=== PATIENT | male | born 1940 | race Caucasian/White ===

== ENCOUNTER → 2020-12-24 16:41 | Outpatient (CLI) | payer MEDICARE, OTHER, SELFPAY ==
[2020-12-10 08:45] VITALS: BMI 24.0
== END ==
PROVIDERS: PCP Family Medicine; Referring Provider Nurse Practitioner Acute Care; Visit Provider Nurse Practitioner Acute Care
DX: R06.00 Dyspnea, unspecified (principal)
CPT/HCPCS: 94762

== ENCOUNTER 2024-12-10 02:40 | Emergency (ER) | payer OTHER, SELFPAY ==
[2024-12-10 02:40] VITALS: BP 150/92; PULSE 78; RESP 16; TEMP 36.7; O2SAT 98; BMI 25.3
[2024-12-10] MEDS: Lidocaine 2% (20 ml mdv) 20 ML Vial INFILT (03:04)
--- NOTE | 2024-12-10 03:38 | EDS_ITS ---
HPI History of Present Illness Chief Complaint: Fall Informant: patient and spouse/S.O. Narrative Narrative: Patient is 84-year-old male with past medical she of hypertension hyperlipidemia. He states that he typically backs up to the bed and then sits down on it. He states a few hours ago he went to do this but he was not close enough to the bed and therefore fell and cut his right ear on the bedside table. He denies any loss of consciousness history of bleeding disorder or blood thinner use. He states he did not think much of this as he was able to get the bleeding to stop after a few minutes. However he states the bleeding returned and this time he cannot get the area to stop and with concern he may need sutures comes in for evaluation. [facility] Medical History (Updated 12/11/24 @ 16:[address] Marek Ponce, DO) HLD (hyperlipidemia) Malignant neoplasm of prostate HTN (hypertension) Diverticulosis of colon Home Medications ?Medication ?Instructions ?Recorded ?Last Taken ?Type aspirin 81 mg tablet,delayed 81 mg PO DAILY PRN pain 0 12/07/20 Unknown History release atorvastatin 40 mg tablet 40 mg PO DAILY 12/07/20 Unkn own History cholecalciferol (vitamin D3) 100 100 mcg PO DAILY 11/22 02/11 Unknown History mcg (4,000 unit) capsule losartan 100 mg tablet 100 mg PO DAILY 12/07/20 Unk nown History Allergy/AdvReac Type Severity Reaction Status Date / Time LINDA Inhibitors AdvReac Mental Verified 12/10/24 02:41 status change atenolol AdvReac Shortness Verified 12/10/24 02:41 of breath Surgical History H/O vitrectomy H/O sigmoidoscopy H/O cataract removal with insertion of prosthetic lens Hx of brachytherapy Social History Smoking Status: Never smoker alcohol intake: current alcohol intake frequency: 0-2 drinks per day ROS ROS ED Constitutional Constitutional ED: Denies chills or fever(s) Eyes Eyes: Denies blurry vision or change in vision ENT ENT ED: Denies sore throat Cardiovascular Cardiovascular: Reports other Details: Negative syncope ; Denies chest pain Respiratory/Chest Respiratory/Chest: Denies cough or dyspnea Gastrointestinal Gastrointestinal: Denies abdominal pain, diarrhea, nausea or vomiting Genitourinary Genitourinary ED: Denies dysuria Musculoskeletal Musculoskeletal: Denies back pain or neck pain Integumentary Reports other Details: Positive right ear laceration Neurologic Neurologic: Denies headache(s) Hematologic/Lymphatic Hematologic/Lymphatic: Denies easy bleeding or easy bruising EXAM Physical Exam Const Vital Signs: 12/10/24 02:40 12/10/24 02:40 Temperature 98.1 F Temperature Source Oral Pulse Rate 78 Respiratory Rate 16 Respiratory Effort Normal Non-Labored Blood Pressure 150/92 H Blood Pressure Mean 111 Pulse Ox 98 Oxygen Delivery Method Room Air Room Air Positive well nourished and well developed General Appearance ED: well developed HEENT HEENT Narrative: No signs of depressed or basilar skull fracture There is a linear subcutaneous layer deep 2 cm laceration along the upper portion of the right ear. There is persistent ooze of blood without retained foreign body or arterial injury. Eyes PERRL and EOMs intact bilaterally Neck supple Neck Narrative: No bony deformity or step-off of the cervical spine no midline tenderness to palpation Resp normal respiratory effort and clear to auscultation bilaterally Cardio regular rate and regular rhythm Back/Spine Back/Spine Narrative: No bony deformity or step-off of the thoracic or lumbar spine no midline tenderness to palpation Extremity normal to inspection Extremity Narrative: Pelvis is stable there is no shortening or external rotation of either lower extremity Patient is able to move all extremities without difficulty Neuro oriented x3, CN's II-XII intact bilaterally and no sensory deficits noted Sensorium / Orientation: alert Motor Exam: strength 5/5 throughout Psych mental status grossly normal Skin Skin Narrative: Laceration to the right ear as documented above MDM MDM MDM Narrative Medical decision making narrative: Patient arrived to the ER hypertensive but has a past medical history of this and otherwise vitals are stable. He reported a mechanical fall and therefore there is no need for cardiac or syncope workup. We discussed potential need for head and cervical spine CT but patient does not have a headache or neck pain and concern for a skull fracture versus subarachnoid or subdural hemorrhage is low and therefore he does not want this performed. Therefore the ear was sutured as documented below and patient is otherwise safe for discharge The right ear was cleaned with chlorhexidine. It was anesthetized using 5 mL of 2% lidocaine without epinephrine in local fashion. The wound was copiously irrigated with normal saline. Then five 4-0 Ethilon sutures were placed in simple interrupted fashion bring the wound together well with good approximation of the wound edges. Patient tolerated the procedure well without complication. History & Record Review Discussion w/independent historian: Patient and Significant other Discharge Plan Triage Chief Complaint: Fall ED Provider: Marek Ponce Dx/Rx/DC Orders Clinical Impression: Laceration of right ear, HTN (hypertension), HLD (hyperlipidemia), Accidental fall Instructions: ED Laceration, All Closures Prescriptions: No Action atorvastatin 40 mg tablet 40 mg PO DAILY losartan 100 mg tablet 100 mg PO DAILY cholecalciferol (vitamin D3) 100 mcg (4,000 unit) capsule 100 mcg PO DAILY aspirin 81 mg tablet,delayed release (DR/EC) 81 mg PO DAILY PRN (Reason: pain) Primary Care Provider: Rikki Harrison Referrals: Rikki Harrison MD [Primary Care Provider] - Activity Restrictions/Additional Instructions: Please see your family doctor or return to the ER in 7 to 10 days for suture removal Print Language: Citizen Of [place] Disposition Disposition: Home, Self Care Discharge Date/Time: 12/10/24 04:20
[2024-12-10 04:19] VITALS: BP 134/72; PULSE 68; RESP 16; TEMP 36.6; O2SAT 99
== END 2024-12-10 04:20 | disposition home or self-care (01) ==
PROVIDERS: Emergency Provider Emergency Medicine; PCP Family Medicine; Visit Provider Emergency Medicine
DX: S01.311A Laceration without foreign body of right ear, initial encounter (principal); W01.190A Fall on same level from slipping, tripping and stumbling with subsequent striking against furniture, initial encounter; I10 Essential (primary) hypertension; E78.5 Hyperlipidemia, unspecified; Z79.82 Long term (current) use of aspirin; Z79.899 Other long term (current) drug therapy
CPT/HCPCS: 12011; 99282

== ENCOUNTER → 2025-03-20 | Outpatient (CLI) | payer OTHER, MEDICARE, SELFPAY | END | disposition home or self-care (01) | PROVIDERS: PCP Family Medicine; Referring Provider Nurse Practitioner Acute Care; Visit Provider Nurse Practitioner Acute Care | DX: G47.33 Obstructive sleep apnea (adult) (pediatric) (principal) | CPT/HCPCS: 95811 ==

== ENCOUNTER 2025-08-20 12:13 | Inpatient (IN) | payer OTHER, SELFPAY ==
[2025-08-20] VITALS (12 sets, daily range): BP systolic 119–153; BP diastolic 60–81; PULSE 75–90; RESP 16–30; TEMP 36.6–38.1; O2SAT 93–99; BMI 26.9; BMI 24.9
--- NOTE | 2025-08-20 12:22 | RAD_ITS ---
PROCEDURE: CHEST PA AND LATERAL 08/20/2025 REASON FOR EXAM: WEAK, FALL TECHNIQUE: Procedure Code: RADCXR Modality: DX Procedure: CHEST PA AND LATERAL COMPARISON: None FINDINGS: Hardware: None Heart: The heart size is normal. Mediastinum: The mediastinal contour is unremarkable. Lungs: The lungs are clear. Bones: The bones are unremarkable. RAD/Chest PA and Lateral IMPRESSION: NO ACUTE FINDINGS. Reading Location: [facility]
--- NOTE | 2025-08-20 12:22 | EKG12_ITS ---
Test Reason : Blood Pressure : */* mmHG Vent. Rate : 85 BPM Atrial Rate : 85 BPM P-R Int : 214 ms QRS Dur : 90 ms QT Int : 364 ms P-R-T Axes : 68 16 53 degrees QTcB Int : 433 ms Sinus rhythm with 1st degree A-V block Cannot rule out Inferior infarct , age undetermined Abnormal ECG Nonspecific ST and T wave abnormality Confirmed by Cyrus Owens ([id number]), subeditor MONA NICHOLS ([id number]) on 08/22/2025 9:29:52 AM Referred By: DON Confirmed By: Cyrus Owens
[2025-08-20] MEDS: 0.9% Normal Saline (1000mL) 1,000 ML 999 ML IV ×2 (12:40→14:45)
[2025-08-20 12:43] LABS: Hematocrit 39.7 % (40-54); Hemoglobin 13.9 g/dL (13.0-16.5); Immature Granulocytes Count 0.020 X10^3/uL (0.0-0.0); Mean Corp Hgb Conc 35.0 g/dL (32-36); Mean Corpuscular Volume 94.5 fL (80-94); Mean Platelet Vol. 10.2 fl (6.2-12.0); NRBC Flagged by Analyzer 0 % (0-5); POSITIVE DIFFERENTIAL YES; Platelet Count 146 K/mm3 (150-450); RBC Distribution Width CV 13.4 % (11.6-14.6); RBC Distribution Width SD 46.6 fl (35.1-43.9); Red Blood Count 4.20 M/mm3 (4.6-6.2); White Blood Count 6.8 K/mm3 (4.4-11.0)
--- NOTE | 2025-08-20 12:47 | EDS_ITS ---
HPI History of Present Illness Chief Complaint: General Illness Narrative Narrative: Patient is a 84-year-old male past medical history of hypertension, hyperlipidemia,, malignant neoplasm of the prostate gland who presented to the emergency department the chief complaint of generalized weakness and fall. Patient states that he fell earlier today he did not hit his head he did not pass out he notes that he landed on his buttock and was too weak to get up therefore EMS was called to have him brought here to be further evaluated. Patient states that he had some black stools recently as well but denies any blood thinner medications. Patient is also complaining of some lower back pain. [facility] Medical History (Updated 08/20/25 @ 16:[address] Agusto Caldwell, ) HLD (hyperlipidemia) Malignant neoplasm of prostate HTN (hypertension) Diverticulosis of colon Home Medications ?Medication ?Instructions ?Recorded ?Last Taken ?Type atorvastatin 40 mg tablet 40 mg PO DAILY 12/07/20 Unkn own History losartan 100 mg tablet 100 mg PO DAILY 12/07/20 Unk nown History citalopram 20 mg tablet 10 mg PO DAILY ANXIETY 02/27 Unknown History metformin 500 mg tablet 500 mg PO DAILY diabetes 03/17 Unknown History CPAP - Continuous Positive Airway 05/19/25 Unknown Hi story Pressure([facility] INFORMATIONAL USE ONLY) Allergy/AdvReac Type Severity Reaction Status Date / Time LINDA Inhibitors AdvReac Mental Verified 08/20/25 12:20 status change atenolol AdvReac Shortness Verified 08/20/25 12:20 of breath Surgical History H/O vitrectomy H/O sigmoidoscopy H/O cataract removal with insertion of prosthetic lens Hx of brachytherapy Social History Smoking Status: Never smoker alcohol intake: current alcohol intake frequency: 0-2 drinks per day ROS ROS ED ROS Narrative Constitutional: Complains of whole-body aches and generalized not feeling well denies any headache, lightheadedness Cardiovascular: Denies chest pain Respiratory: Denies shortness of breath Abdomen: Denies abdominal pain nausea vomiting : Denies urinary symptoms Neurological: Denies any numbness, weakness, tingling Musculoskeletal: Denies back pain Skin: Denies any rashes or lesions EXAM Physical Exam Narrative Exam Narrative: General: Patient is lying in bed rest comfortably did not appear to be in acute distress Head: Atraumatic, normocephalic Eyes: PERRL bilaterally, EOMI bilaterally, no conjunctival injection noted Neck: Soft, supple, trachea midline Cardiovascular: Regular rate and rhythm Respiratory: Clear to auscultation bilaterally Abdomen: Soft, nondistended, mild tenderness to palpation diffusely no rebound or guarding on exam Extremities: +4/5 strength noted in the bilateral upper and lower extremities Neurological: Patient following commands knew that he was at [facility] the year is 2024 NIH of 0 GCS 15 Skin: Warm, dry, intact no rashes or lesions noted Const Vital Signs: 08/20/25 12:17 08/20/25 12:21 08/20/25 12:21 Temperature 100.6 F H 100.6 F H Temperature Source Oral Oral Pulse Rate 84 85 Respiratory Rate 22 H 30 H Respiratory Effort Normal Respiratory Pattern Normal Blood Pressure 153/69 H 153/69 H Blood Pressure Mean 97 97 Pulse Ox 95 97 Oxygen Delivery Method Room Air Room Air 08/20/25 12:25 08/20/25 13:21 08/20/25 13:21 Temperature 99.8 F H Temperature Source Oral Pulse Rate 90 86 Respiratory Rate 18 20 H Respiratory Effort Respiratory Pattern Blood Pressure 134/81 H 134/81 H Blood Pressure Mean 98 98 Pulse Ox 98 96 Oxygen Delivery Method Room Air Room Air Room Air 08/20/25 14:16 08/20/25 15:00 08/20/25 16:08 Temperature 98.6 F 97.9 F 98.2 F Temperature Source Oral Oral Oral Pulse Rate 86 82 86 Respiratory Rate 22 H 22 H 20 H Respiratory Effort Respiratory Pattern Blood Pressure 119/71 127/70 H 130/73 H Blood Pressure Mean 87 89 92 Pulse Ox 96 94 97 Oxygen Delivery Method Room Air Room Air Room Air MDM MDM MDM Narrative Medical decision making narrative: Patient is a 84-year-old male who presented to the emergency department the chief complaint of fall, generalized weakness and not feeling well. On the differential diagnose includes but not limited to electrolyte abnormality, upper respiratory infection secondary viral etiology, pneumonia. Once workup is obtained reviewed he will be reevaluated. Patient be given 30 cc/kg bolus of IV fluids which was ordered at 1225. He will also be given a gram of Tylenol for his fever Patient CBC reviewed and showed a white count is normal at 6.8, he was noted be 13.9, plate count of 146. Patient INR normal 1.1, PT 14.2. Patient sodium is 135, potassium normal at 4.4,, dioxide low at 17.5 anion gap normal at 14. Patient creatinine normal at 1.06 lactic acid elevated 3.3. Patient's AST and ALT were 56 and 47 respectively urinalysis reviewed and showed 5 ketones negative nitrites negative leukocyte esterase rare bacteria noted. Patient CT head brain without contrast showed no acute findings. Patient CT abdomen pelvis with IV contrast showed no acute intra-abdominal abnormalities. Patient EKG showed sinus rhythm with a rate of 85 bpm with evidence of first-degree AV block with a [place] interval 214. Patient was attempted to be ambulated here in the emergency department and was very unsteady on his feet. Patient did test positive for influenza A here in the emergency department. Occult blood was negative. No indication for antibiotics at this point time. At this point time will discuss case with hospitalist for admission given his influenza and generalized weakness with difficulty ambulating. Discussed case with hospitalist Dr. Clemente who accept patient for admission. Patient notified family members agreeable all question concerns answered. Patient will be given Tamiflu renal dosing 30 mg Lab Data Labs: Laboratory Results - last 24 hr 08/20/25 08/20/25 08/20/25 12:30 14:21 15:30 WBC 6.8 RBC 4.20 L Hgb 13.9 Hct 39.7 L MCV 94.5 H MCH 33.1 H MCHC 35.0 RDW Std Deviation 46.6 H RDW Coeff of [place] 13.4 Plt Count 146 L MPV 10.2 Immature Gran % (Auto) 0.300 Neut % (Auto) 77.3 H Lymph % (Auto) 8.2 L [place] % (Auto) 13.5 H Eos % (Auto) 0.1 Baso % (Auto) 0.6 Absolute Neuts (auto) 5.3 Absolute Lymphs (auto) 0.56 L Nucleated RBC % 0 PT 14.2 INR 1.1 APTT 27.8 Sodium 135 Potassium 4.4 Chloride 103 Carbon Dioxide 17.5 L Anion Gap 14 BUN 13 Creatinine 1.06 Estim Creat Clear Calc 28.90 L Est GFR (MDRD) Non-Af 70 BUN/Creatinine Ratio 12.3 Glucose 147 H Lactic Acid 3.3 H* 1.5 Calcium 8.8 Total Bilirubin 0.49 AST 56 H ALT 47 Alkaline Phosphatase 56 Total Protein 6.8 Albumin 4.1 Globulin 2.7 Albumin/Globulin Ratio 1.6 Urine Color Yellow Urine Clarity Clear Urine pH 6.0 Ur Specific [place] 1.010 Urine Protein 30 H Urine Glucose (UA) Normal Urine Ketones 5 H Urine Occult Blood 50 H Urine Nitrite Negative Urine Bilirubin Negative Urine Urobilinogen 1 H Ur Leukocyte Esterase Negative Urine RBC 0-5 SEEN Urine WBC 0-5 SEEN Ur Squamous Epith Cells 0-5 SEEN Urine Bacteria RARE Urine Mucus 0 SEEN Radiography Diagnostic Testing: Clinical Impression(s) from Imaging Studies Chest X-Ray 08/20/25 12:22 IMPRESSION: NO ACUTE FINDINGS. Reading Location: [facility] Abdomen/Pelvis CT 08/20/25 12:48 IMPRESSION: No acute intra-abdominal abnormality. Reading Location: [facility] Brain CT 08/20/25 12:48 IMPRESSION: CHRONIC CHANGES. NO ACUTE FINDINGS. Reading Location: [facility] Discharge Plan Dx/Rx/DC Orders Clinical Impression: HTN (hypertension), Influenza A, Generalized weakness, Acidosis, lactic Disposition Disposition: [facility]
--- NOTE | 2025-08-20 12:48 | CT_ITS ---
PROCEDURE: ABDOMEN/PELVIS W IV CONT ONLY 08/20/2025 REASON FOR EXAM: Increased weakness, generalized malaise and fever. TECHNIQUE: Procedure Code: [id number] Modality: CT Procedure: ABDOMEN/PELVIS W IV CONT ONLY Coronal and Sagittal reconstruction series were provided. CONTRAST: Isovue 370 VOLUME: 100 mL One or more dose reduction techniques were used (e.g., Automated exposure control, adjustment of the mA and/or kV according to patient size, use of iterative reconstruction technique. RADIATION DOSE SUMMARY: DLP: 926.78 mGycm COMPARISON: None FINDINGS: Lung bases: Mild dependent atelectasis Liver: Diffuse fatty infiltration. No focal intrahepatic mass. Gallbladder: Unremarkable. Spleen: Normal size. Pancreas: Normal size without evidence of mass surrounding inflammation or ductal dilation. Adrenals: Normal Kidneys: Normal renal sizes. No hydronephrosis. Bladder: Unremarkable. Reproductive Organs: Fiduciary markers are noted within the prostate bed. Bowel: Colonic diverticulosis without diverticulitis. No evidence of small- bowel obstruction. No hiatal hernia. The rectum is unremarkable. Appendix: The appendix is not identified. There is no inflammatory process identified in the right lower quadrant to suggest appendicitis. Lymph nodes: No suspicious lymph node enlargement. Vasculature: Mild diffuse atherosclerotic calcifications are noted. Peritoneum / Retroperitoneum: No free air or free fluid. Bones: Degenerative changes of the spine. No sclerotic lesion. CT/Abdomen/Pelvis W IV Cont ONLY IMPRESSION: No acute intra-abdominal abnormality. Reading Location: [facility]
--- NOTE | 2025-08-20 12:48 | CT_ITS ---
PROCEDURE: BRAIN/HEAD WITHOUT CONTRAST 08/20/2025 REASON FOR EXAM: FALL TECHNIQUE: Procedure Code: CTBR Modality: CT Procedure: BRAIN/HEAD WITHOUT CONTRAST Coronal and Sagittal reconstruction series were provided. One or more dose reduction techniques were used (e.g., Automated exposure control, adjustment of the mA and/or kV according to patient size, use of iterative reconstruction technique. RADIATION DOSE SUMMARY: CTDlvol: 61.87 mGy DLP: 1773.51 mGycm COMPARISON: None FINDINGS: Brain: Low density in the periventricular white matter suggests mild chronic small vessel ischemic changes. CSF Spaces: Mild generalized cerebral atrophy Sinuses/Mastoids: Mild mucosal thickening at the paranasal sinuses Bones: No acute osseous abnormality. CT/Brain/Head without Contrast IMPRESSION: CHRONIC CHANGES. NO ACUTE FINDINGS. Reading Location: [facility]
[2025-08-20 12:54] LABS: Prothrombin Time (Protime)PT. 14.2 SECONDS (11.7-14.9)
[2025-08-20 12:55] LABS: Partial Thromboplast Time 27.8 Seconds (24.1-36.2)
--- OUTSIDE RECORDS SUMMARY | 2025-08-20 12:57 | XMS RPT_ITS | CCD ---
Author Organization [facility] Care Team Providers Care Roll Scale Man Name Role Phone Reena Robles MD Primary Care Provider Dr. Reena Robles MD Primary Care Provider [phone] Dr. Marek Ponce DO Emergency Provider [phone] Reena Robles MD Primary Care Provider [place] [employer].CLINICAL RESEARCH SPECIALIST, Bonita Unavailable Phuc INS[employer].CLINICAL RESEARCH SPECIALIST, Pepito Unavailable [phone] Dr. Marek Ponce DO Attending Provider Dr. Reena Robles MD Referring Provider Hao SEMI TRUCK DRIVER-C, Gabriela Attending Provider Hao SEMI TRUCK DRIVER-C, Gabriela Referring Provider Reena Robles Referring Unavailable Gabriela Bui NP Attending Unavailable Reena Robles Primary Care Unavailable Hao SEMI TRUCK DRIVER, Gabriela Attending Unavailable Hao SEMI TRUCK DRIVER, Gabriela Referring Unavailable Reena Robles Primary Care Unavailable Marek Ponce Attending Unavailable Reena Robles Primary Care Unavailable REENA ROBLES Attending Unavailable REENA ROBLES Primary Care Unavailable REENA ROBLES Attending Unavailable REENA ROBLES Primary Care Unavailable REENA ROBLES Primary Care Unavailable PAULINE PEREZ Attending Unavailable Allergies Allergy Classification Reported Allergen(s) Allergy Type Date of Onset Reaction(s) Facility (2 sources) Angiotensin-con verting enzyme inhibitor agent; Translations: [KLEBER INHIBITORS] Drug Allergy 2 Mental Status Change [facility] (17 sources) Atenolol; Translations: [ATENOLOL] Drug Allergy 6 Other: See Comments [facility] (12 sources) Angiotensin-con verting enzyme inhibitor agent Drug Allergy 2 Mental Status Change [facility] (3 sources) Angiotensin Converting Enzyme (Kleber) Inhibitors Propensity to adverse reactions 5 Mental status change [facility] (1 source) Angiotensin Converting Enzyme (Kleber) Inhibitors Drug allergy (disorder) 5 [facility] (1 source) Atenolol Drug Allergy 5 [facility] Medications Current Medications Medication Drug Class(es) Dates Sig (Normalized) Sig (Original) atorvastatin 40 mg oral tablet (16 sources) HMG-CoA Reductase Inhibitor Start: 04-26-2020 take 1 tablet by mouth once daily Atorvastatin 40 mg tablet Active 40 mg PO DAILY December 07, 2020 12:00am Comment on above: Take 1 tablet by héctor once daily. citalopram 20 mg oral tablet (14 sources) Serotonin Reuptake Inhibitor Start: 02-27-2025 take 10 mg by mouth once daily Citalopram 20 mg tablet Active 10 mg PO DAILY February 27, 2025 12:00am ANXIETY Start: 05-01-2021 End: 01-17-2022 take 1 tablet by mouth once daily citalopram (CELEXA) 20 mg tablet Take 1 tablet by mouth once daily. 0 05/01/2021 01/17/2022 Discontinued citalopram hydro bromide (CELEXA) 10 mg tablet Take by mouth once daily. Active Comment on above: Take 1 tablet by héctor once daily. Take by mouth once d aily. doxycycline hyclate 100 mg oral capsule (1 source) Tetracycline-class Drug Start: 3 End: 3 take 1 capsule by mouth twice daily doxycycline hyclate (VIBRAMYCIN) 100 mg capsule Indications: Cellulitis of skin Take 1 capsule by mouth twice daily for 10 days. 20 capsule 0 03/09/2023 03/19/2023 Active Comment on above: Take 1 capsule by mo [facility] twice daily for 10 days. losartan potassium 50 mg oral tablet (16 sources) Angiotensin 2 Receptor Tiffani Start: 1 take 2 tablets by mouth once daily losartan (COZAAR) 50 mg tablet Indications: Essential hypertension, benign Take 2 tablets by mouth once daily. 07/19/2021 Active Start: 12-07-2020 take 1 tablet by mouth once da maddi Losartan 100 mg tablet Active 100 mg PO DAILY December 07, 2020 12:00am Comment on above: Take 2 tablets by mo [facility] once daily. meloxicam 15 mg oral tablet (13 sources) Nonsteroidal Anti-inflammatory Drug Start: 1 take 1 tablet by mouth once daily at mealtime meloxicam (MOBIC) 15 mg tablet Take 1 tablet by mouth once daily. With food. 07/19/2021 Active Comment on above: Take 1 tablet by héctor once daily. With food. metFORMIN hydrochloride 500 mg oral tablet (20 sources) Biguanide Start: 5 take 1 tablet by mouth once daily Metformin 500 mg tablet Active 500 mg PO DAILY February 27, 2025 12:00am diabetes Start: 07-28-2022 End: 12-29-2024 take 1 tablet by mouth once daily at breakfast metFORMIN ER (GLUCOPHAGE XR) 500 mg 24 hr tablet Indications: Prediabetes Take 1 tablet by mouth daily with breakfast. 90 tablet 1 07/28/2022 Active Comment on above: Take 1 tablet by héctor daily with breakfast. triamcinolone acetonide 0.25 mg/ml topical cream (9 sources) Corticosteroid Start: 03-09-2023 triamcinolone (KENALOG) 0.025 % cream Indications: Insect bite, unspecified site, initial encounter Apply 1 application to affected area twice daily. 30 g 03/09/2023 Active Comment on above: Apply 1 application to affected area twice daily. Completed/Discontinued Medications Medication Drug Class(es) Dates Sig (Normalized) Sig (Original) amoxicillin 875 mg / clavulanate 125 mg oral tablet (3 sources) Penicillin-class Antibacterial Start: 11-30-2023 End: 12-10-2023 Amoxicillin-Pot Clavulanate 875-125 mg tablet Discontinued 1 {tbl} PO Q12H 20 10 0 November 30, 2023 12:00am December 09, 2023 12:00am December 10, 2023 12:06am Acute sinusitis, unspecified aspirin 81 mg delayed release oral tablet (16 sources) Platelet Aggregation Inhibitor, Nonsteroidal Anti-inflammatory Drug Start: 12-07-2020 End: 02-27-2025 take 1 tablet by mouth once daily as needed for pain Aspirin 81 mg tablet,delayed release (DR/EC) Discontinued 81 mg PO DAILY as needed for pain December 07, 2020 12:00am February 27, 2025 8:14am Start: 07-16-2012 take 1 tablet by héctor th once daily at mealtime Aspirin 81 mg Tab Take 1 tablet by mouth once daily. Take with food. 30 tablet 11 07/16/2012 Active Comment on above: Take 1 tablet by héctor th once daily. Take with food. Cholecalciferol (3 sources) Vitamin D Start: 12-07-2020 End: 02-27-2025 take 1 capsule by mouth once daily Cholecalciferol (Vitamin D3) 100 mcg (4,000 unit) capsule Discontinued 100 ug PO DAILY December 07, 2020 12:00am February 27, 2025 8:14am Start: 12-07-2020 take 1 capsule by mo [facility] once daily Cholecalciferol (Vitamin D3) 100 mcg (4,000 unit) capsule Active 100 ug PO DAILY December 07, 2020 12:00am cholecalciferol, vitamin D3, (VITAMIN D3 ORAL) (12 sources) End: 12-29-2024 cholecalciferol, vitamin D3, (VITAMIN D3 ORAL) Take by mouth. 12/29/2024 Discontinued cholecalciferol, vitamin D3, (VITAMIN D3 ORAL) Take by mouth. Active cholecalciferol, vitamin D3, (VITAMIN D3 ORAL) Take by mouth. 0 Active Comment on above: Take by mouth. furosemide 20 mg oral tablet (16 sources) Loop Diuretic Start: 2011 End: 2024 take 1 tablet by mouth once daily as needed Furosemide (Lasix) 20 mg tablet Discontinued 20 mg PO DAILY as needed December 07, 2020 12:00am December 10, 2024 2:41am Comment on above: Take 1 tablet by héctor th once daily as needed. loratadine 10 mg oral tablet (10 sources) End: 2024 take 1 tablet by mouth once daily loratadine (CLARITIN) 10 mg tablet Take 10 mg by mouth once daily. 12/29/2024 Discontinued Comment on above: Take 10 mg by mouth once daily. methylPREDNISolone 4 mg oral tablet (3 sources) Corticosteroid Start: 2023 End: 2023 take 1 tablet by mouth once Methylprednisolone (Medrol (Kirby)) 4 mg tablets,dose pack Discontinued 4 mg PO per package directions 21 6 0 November 30, 2023 12:00am December 05, 2023 12:00am December 06, 2023 12:06am Problems Active Problems Problem Classification Problem Date Documented Date Episodic/Chronic Anxiety disorders (3 sources) Mixed anxiety and depressive disorder; Translations: [Other specified anxiety disorders] Onset: 01-17-2025 12-29-2024 Chronic Cancer of prostate (17 sources) Malignant tumor of prostate; Translations: [Malignant neoplasm of prostate] Resolved: 01-17-2025 Chronic Cardiac dysrhythmias (13 sources) Ventricular premature beats; Translations: [Ventricular premature depolarization] Onset: 04-27-2015 04-27-2015 Chronic Diabetes mellitus without complication (5 sources) Type 2 diabetes mellitus; Translations: [Type 2 diabetes mellitus without complications] Onset: 12-29-2024 12-29-2024 Chronic Diabetes mellitus without complication (2 sources) Increased glucose level; Translations: [Other abnormal glucose] Episodic Disorders of lipid metabolism (20 sources) Mixed hyperlipidemia; Translations: [Mixed hyperlipidemia] Onset: 08-06-2005 Chronic Diverticulosis and diverticulitis (16 sources) Diverticulosis of colon; Translations: [Diverticulosis of large intestine without perforation or abscess without bleeding] Onset: 10-31-2005 09-11-2008 Chronic E Codes: Natural/environment (1 source) Insect bite - wound; Translations: [Bitten or stung by nonvenomous insect and other nonvenomous arthropods, initial encounter] 03-09-2023 Episodic Essential hypertension (20 sources) Benign essential hypertension; Translations: [Essential (primary) hypertension] Onset: 07-23-2011 Chronic Other nervous system disorders (13 sources) Carpal tunnel syndrome; Translations: [Carpal tunnel syndrome, unspecified upper limb] Onset: 12-24-2009 12-24-2009 Chronic Other non-traumatic joint disorders (1 source) Hip pain; Translations: [Pain in left hip] Episodic Other screening for suspected conditions (not mental disorders or infectious disease) (4 sources) Patient encounter status; Translations: [Encounter for screening for malignant neoplasm of colon] Episodic Otitis media and related conditions (3 sources) Acute right otitis media; Translations: [Otitis media, unspecified, right ear] 11-30-2023 Episodic Residual codes; unclassified (19 sources) Obstructive sleep apnea syndrome; Translations: [Obstructive sleep apnea (adult) (pediatric)] Onset: 04-26-2020 Chronic Residual codes; unclassified (1 source) Obstructive sleep apnea (adult) (pediatric); Translations: [Obstructive sleep apnea (adult) (pediatric)] Onset: 04-04-2025 Chronic Residual codes; unclassified (1 source) Bilateral lower limb edema; Translations: [Localized edema] Episodic Residual codes; unclassified (3 sources) Past history of procedure; Translations: [Other specified postprocedural states] 12-07-2020 Episodic Residual codes; unclassified (3 sources) History of vitrectomy; Translations: [Other specified postprocedural states] 12-07-2020 Episodic Skin and subcutaneous tissue infections (1 source) Cellulitis of skin; Translations: [Cellulitis, unspecified] 03-09-2023 Episodic Spondylosis; intervertebral disc disorders; other back problems (20 sources) Degeneration of lumbar intervertebral disc; Translations: [Other intervertebral disc degeneration, lumbar region] Onset: 07-23-2011 07-23-2011 Chronic Past or Other Problems Problem Classification Problem Date Documented Da te Episodic/Chronic Allergic reactions (6 sources) Disorders of skin induced by physical agents; Translations: [Unspecified contact dermatitis due to plants, except food] Onset: 03-25-2007 Resolved: 06-10-2007 03-03-2024 Episodic E Codes: Fall (4 sources) Fall; Translations: [Unspecified fall, initial encounter] Onset: 12-29-2024 12-29-2024 Episodic Hemorrhoids (6 sources) Internal hemorrhoids; Translations: [Other hemorrhoids] Onset: 10-31-2005 Resolved: 07-23-2011 07-23-2011 Episodic Neoplasms of unspecified nature or uncertain behavior (6 sources) Neoplasm of uncertain behavior of skin; Translations: [Neoplasm of uncertain behavior of skin] Onset: 03-08-2009 Resolved: 12-24-2009 12-24-2009 Episodic Open wounds of head; neck; and trunk (5 sources) Laceration of ear region; Translations: [Laceration without foreign body of right ear, initial encounter] Onset: 12-29-2024 12-10-2024 Episodic Other aftercare (1 source) Encounter for removal of sutures; Translations: [Visit for suture removal] Onset: 12-18-2024 Episodic Other and unspecified benign neoplasm (6 sources) Benign neoplasm of colon; Translations: [Benign neoplasm of colon, unspecified] Onset: 10-31-2005 Resolved: 07-23-2011 07-23-2011 Episodic Other connective tissue disease (13 sources) Contracture of palmar fascia; Translations: [Palmar fascial fibromatosis [Dupuytren]] Onset: 03-09-2007 09-11-2008 Episodic Other connective tissue disease (6 sources) Pain in limb; Translations: [Pain in unspecified limb] Onset: 12-23-2005 Resolved: 06-10-2007 03-03-2024 Episodic Other injuries and conditions due to external causes (1 source) Encounter for examination and observation following other accident; Translations: [Encounter for examination and observation following other accident] Onset: 12-15-2024 Episodic Other non-traumatic joint disorders (13 sources) Pain in right knee; Translations: [Pain in joint, lower leg] Onset: 02-03-2011 02-03-2011 Episodic Screening and history of mental health and substance abuse codes (2 sources) Encounter for screening for depression; Translations: [Encounter for screening examination for other mental health and behavioral disorders] Onset: 12-29-2024 Episodic Spondylosis; intervertebral disc disorders; other back problems (20 sources) Lumbago with sciatica; Translations: [Lumbago with sciatica, right side] Onset: 08-09-2015 08-09-2015 Episodic Results Test Name Value Interpretation Reference Range Facil mart Han 06-05-2025 [facility] Telephone ([facility]) LUIS FERNANDO HOWARD ([id number]) 1940 M Date Time Provider Department 06/05/25 REENA ROBLES [facility] During your visit today, we recorded the following information about you: Katie Bowman MA 06/05/2025 6:32 PM Signed Type of letter/form/fax request - Medical Record Release Form Form received from fax on 1 floor and placed on MD desk (Dr. Robles) for completion. Completed form needs to be faxed to [facility] Affairs. Pt applied [facility] and they are requesting records. Route to CT when form completed for processing Reena Robles MD 06/05/2025 7:48 PM Signed OK to send records as requested MD Dionisio Park Kathryn, MA 06/05/2025 7:54 PM Signed Routed to Medical Records Release. Katie Bowman MA Allergies As of Date: 06/05/2025 Noted Allergy Reaction KLEBER INHIBITORS 12/10/2011 1 - Mental Status Change ATENOLOL 09/14/2015 14 - Other: See Comments Comments: Difficulty breathing with activity Date Reviewed: 01/17/2025 Reviewed by: Katie Bowman MA - Fully Assessed Reason for Visit: record release form from [facility] [Other] Prescriptions as of 06/05/2025 - triamcinolone (KENALOG) 0.025 % cream Apply 1 application to affected area twice daily. - citalopram hydrobromide (CELEXA) 10 mg tablet Take by mouth once daily. - metFORMIN ER (GLUCOPHAGE XR) 500 mg 24 hr tablet Take 1 tablet by mouth daily with breakfast. - losartan (COZAAR) 50 mg tablet Take 2 tablets by mouth once daily. - meloxicam (MOBIC) 15 mg tablet Take 1 tablet by mouth once daily. With food. - atorvastatin (LIPITOR) 40 mg tablet Take 1 tablet by mouth once daily. - Aspirin 81 mg Tab Take 1 tablet by mouth once daily. Take with food. Meds Comments as of 07/19/2021: Receives all meds through [facility]. 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] 03/09/2007 DERMATITIS DUE TO PLANT [L25.5] 03/25/2007 06/10/2007 Neoplasm of Uncertain Behavior of Skin [D48.5] 03/08/2009 12/24/2009 CTS (Carpal Tunnel Syndrome) [G56.00] 12/24/2009 Knee pain, right [M25.561] 02/03/2011 Essential hypertension, benign [I10] 07/23/2011 DDD (degenerative disc disease), lumbar [M51.36*07/23/2011 PVC's (premature ventricular contractions) [I49*04/27/2015 Midline low back pain with right-sided sciatica*08/09/2015 Osteoarthritis of spine with radiculopathy, lum*09/03/2015 Right-sided low back pain with right-sided scia*09/03/2015 DALE (obstructive sleep apnea) [G47.33] 04/26/2020 Type 2 diabetes mellitus without complication, *12/29/2024 Encounter Status:Closed by KATIE BOWMAN on 06/05/25 Normal [facility] Pulmonary Visit Reporton Pulmonary Visit Report [facility] of [address] [place] [address] OFFICE VISIT Date of Service: 02/27/25 MR#: [id number] Acct: [id number] Name: LUIS FERNANDO HOWARD Rep #: [id number] : 1940 Provider: HIEU Bui Age/Sex: 84/M Location: [facility] [place] Status: Signed Assessment and Plan Assessment and Plan (1) DALE (obstructive sleep apnea): Status: Chronic Plan: Deteriorated. The patient was previously prescribed PAP therapy through the [facility] with a fullface mask. The patient states he was not able to tolerate the full facemask and ultimately returned the device. Since then, he has found out that his daughter has obstructive sleep apnea and has been noticing significant benefit from treatment. This made him reconsider his decision. He would like to evaluate treatment with a hybrid nasal interface. He is agreeable to a titration study. Once test results are available for review I will order the appropriate equipment. The patient will return to the office in approximately 10 weeks, at which time anticipate he will be on therapy for approximately 4 to 6 weeks. I have advised him that he should wear the device at least 4 hours nightly, ultimately any time spent sleeping. He conveys understanding and is agreeable with this plan. He has been encouraged to contact our office with any difficulty acclimating to therapy. Orders: Orders Polysomnography with PAP Today G47.33 - Obstructive sleep apnea (adult) (pediatric) Plan Details Additional Comments: This note was generated with iWelcome dictation software. It may contain incorrect words, spelling, and punctuation that were not noted in checking the note before signing. Follow Up: 10 Weeks HPI DALE- On license of [facility] Chief Complaint: Obstructive sleep apnea HPI Comments Details: This patient presents to the office today to reestablish care for his known obstructive sleep apnea. He is ambulatory and currently on room air. He has not recently been seen in the ED or urgent care for any respiratory illness. He has not required any antibiotics or prednisone for any breathing problems. If you recall, he is a lifelong never smoker. [facility]. He was previously diagnosed with obstructive sleep apnea by the [facility] and prescribed PAP therapy with a fullface mask. Unfortunately, after serious effort was given the patient was not able to be compliant with the fullface mask and returned the device. At this time, he is feeling tired throughout the day. He has 2 episodes of nocturia nightly. He believes that he would feel more rested if he treated his sleep apnea. He would like to be prescribed ResMed AirSense 11 AutoSet with AirFit and 30 cushion. He remains a very active person exercising in his home gym multiple times weekly. He denies any difficulty with shortness of breath, he is a runner. He denies any wheezing, chest tightness, chest pain or palpitations. He does not have any cough, sputum production or hemoptysis. He denies any fever, chills or body aches. Intake Vital Signs 12/10/24 02:40 02/27/25 08:12 Height 5 ft 10 in 5 ft 10 in Weight: 171 lb BMI 24.5 BP 157/84 H Blood Pressure Location Rt brachial Position Sitting Respiration 16 Pulse 71 Pulse Source Monitor Temp 97.4 F L Temperature Source Temporal Artery Pulse Oximetry (%) 96 Oxygen Delivery Method room air Intake Visit Reasons: [facility]- [facility] Chief Complaint: Cough, congestion and right ear pain Allergies KLEBER Inhibitors Adverse Reaction (Verified 02/27/25 08:14) Mental status change atenolol Adverse Reaction (Verified 02/27/25 08:14) Shortness of breath Medications ???Medication ???Instructions ???Recorded ???Confirmed ???Type atorvastatin 40 mg tablet 40 mg PO DAILY 12/07/20 02/27/25 H istory losartan 100 mg tablet 100 mg PO DAILY 12/07/20 02/27/25 History citalopram 20 mg tablet 10 mg PO DAILY ANXIETY 02/27/25 History metformin 500 mg tablet 500 mg PO DAILY diabetes 02/27/25 02/27/25 History Have you fallen in the past year?: No PFSH Medical History HLD (hyperlipidemia) Malignant neoplasm of prostate HTN (hypertension) Diverticulosis of colon Surgical History H/O vitrectomy H/O sigmoidoscopy H/O cataract removal with insertion of prosthetic lens Hx of brachytherapy Social History Smoking Status: Never smoker alcohol intake: current alcohol intake frequency: 0-2 drinks per day Questionnaire Bolivar Sleepiness Scale Bolivar Sleepiness Scale Sitting and readin = Mod (more content not included)... Normal [facility] 01-17-2025 [facility] Office Visit ([facility]) LUIS FERNANDO HOWARD ([id number]) 1940 M Date Time Provider Department 01/17/25 10:40 AM REENA ROBLES [facility] During your visit today, we recorded the following information about you: Pulse Respiration Blood pressure Weight 68/minute 14/minute 110/68 78.2 kg Reena Robles MD 01/17/2025 3:02 PM Signed Chief Complaint Patient presents with: Diabetes: HPI Luis Fernando Howard is a 84 year old male who presents here today for diabetes concerns. Has an advanced directive. [facility] He follows with [facility]. DM: Taking Metformin ER 500 mg 1 pill daily. [facility]. No neuropathy sx. No hypoglycemic episodes. Checking BS at home with FBS 140. His last A1c he said was 7.4 which was done at [facility]. No falls. Last fall 12/29/24. Depression/DAVID: stable with Celexa 10 mg daily. Has family support and grand children close, some in [place]. Range in ages of 25 to 13 years old. Past medical history, appointments, medications, allergies reviewed. 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 Other and unspecified hyperlipidemia Previous Surgical History PAST SURGICAL HISTORY Procedure Laterality Date COLONOSCOPY FLX DX W/COLLJ SPEC WHEN PFRMD 09/27/2009 COLSC FLX W/RMVL OF TUMOR POLYP LESION SNARE TQ 10/31/05 PAST SURGICAL HISTORY OF 09/25 brachytherapy, prostate [facility] SIGMOIDOSCOPY FLX DX W/COLLJ SPEC BR/WA IF PFRMD Sigmoidoscopy, flexible VITRECTOMY MECHANICAL PARS PLANA left eye- aroung 2016 XCAPSL CTRC RMVL INSJ IO LENS PROSTH W/O ECP 05/2013 done at [facility] left eye Family History FAMILY HISTORY Problem Relation Age of Onset None Other Glaucoma No Family History Macular Degen No Family History Blindness No Family History Detached Retina No Family History Patient Allergies ALLERGIES Allergen Reactions Kleber Inhibitors Mental Status Change Atenolol Other: See Comments Difficulty breathing with activity Current Medications Current Outpatient Medications on File Prior to Visit Medication Sig triamcinolone (KENALOG) 0.025 % cream Apply 1 application to affected area twice daily. citalopram hydrobromide (CELEXA) 10 mg tablet Take by mouth once daily. metFORMIN ER (GLUCOPHAGE XR) 500 mg 24 hr tablet Take 1 tablet by mouth daily with breakfast. losartan (COZAAR) 50 mg tablet Take 2 tablets by mouth once daily. meloxicam (MOBIC) 15 mg tablet Take 1 tablet by mouth once daily. With food. atorvastatin (LIPITOR) 40 mg tablet Take 1 tablet by mouth once daily. Aspirin 81 mg Tab Take 1 tablet by mouth once daily. Take with food. furosemide 20 mg tablet Take 1 tablet by mouth once daily as needed. No current facility-administere d medications on file prior to visit. Social History Social History Tobacco Use Smoking status: Never Smokeless tobacco: Never Vaping Use Vaping status: Never Used Substance Use Topics Alcohol use: Yes Comment: wine daily Drug use: No EXAM: BP 110/68 Pulse 68 Resp 14 Wt 78.2 kg (172 lb 6.4 oz) BMI 24.74 kg/m? General Appearance: Well appearing, alert, in no acute distress, well-hydrated, well nourished.. Lungs: Lungs clear to auscultation. No wheezing, rhonchi, rales.. Heart: RRR without murmur, gallop, or rubs. No ectopy. Feet: Shoes and socks removed, No deformities, ulcers, calluses, normal distal pulses, and sensitive to 10 gm monofilament . Health Maintenance List Diabetic Foot Exam Never done Shingrix Vaccine(1 of 2) Never done RSV Vaccine(1 - 1-dose 75+ series) Never done DTaP,Tdap,Td Vaccine(5 - Td or Tdap) due on 11/02/2023 Advance Directive Discussion due on 08/24/2024 Covid-19 Vaccine( season) due on 12/29/2025 HbA1C due on 04/06/2025 Urine Albumin:Creatinine Ratio due on 10/07/2025 LDL Cholesterol due on 10/07/2025 Depression Screening due on 12/29/2025 Anxiety Screening due on 12/29/2025 Dilated Retinal Exam due on 01/10/2026 Influenza Vaccine Completed Pneumococcal Vaccine: 50+ Completed Colorectal Cancer Screening Discontinued Data reviewed None ASSESSMENT/PLAN: 1. Type 2 diabetes mellitus without complication, without long-term current use of insulin (HCC) - ICD9: 250.00, ICD10: E11.9 - Controlled - Continue current medications - Counseled on healthy diet and regular exercise - Discussed need for and benefit of weight loss. BMI 24.74 kg/(m2) 2. Anxiety with depression - ICD9: 300.4, ICD10: F41.8 Stable Continue current medications. Follow up prn I agree with the Chief Complaint, ROS, and Past Histories independently gathered by the clinical support s (more content not included)... Normal [facility] CNOVon 12-29-2024 CNOV Office Visit (FAMPWS) LUIS FERNANDO HOWARD ([id number]) 1940 M Date Time Provider Department 12/29/24 10:00 AM [facility] During your visit today, we recorded the following information about you: Pulse Respiration Blood pressure Weight 62/minute 16/minute 140/80 80 kg Reena Robles MD 12/29/2024 10:19 AM Signed Chief Complaint Patient presents with: ED Follow-up: [facility]-fall, sutures to the right ear, those are out HPI Luis Fernando Howard is a 84 year old male who presents here today for ER Follow Up.. 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 Pt has not been seen in the office since 07/2022. Pt stated he did hit his right ear, had stitches placed which were removed at . Denies LOC. The ear is healing, tender to touch. Has not had any further falls. Admits he does have balance issues when walking. He stated his fall was due to barrel line operator error, did not back up enough to the bed before sitting. Denies any other cause for the fall. Tetanus was not updated at ER. Had depth perception issue of the right eye. [facility] records from 12/10/24: Narrative: Patient is 84-year-old male with past medical she of hypertension hyperlipidemia. He states that he typically backs up to the bed and then sits down on it. He states a few hours ago he went to do this but he was not close enough to the bed and therefore fell and cut his right ear on the bedside table. He denies any loss of consciousness history of bleeding disorder or blood thinner use. He states he did not think much of this as he was able to get the bleeding to stop after a few minutes. However he states the bleeding returned and this time he cannot get the area to stop and with concern he may need sutures comes in for evaluation. Medical decision making narrative: Patient arrived to the ER hypertensive but has a past medical history of this and otherwise vitals are stable. He reported a mechanical fall and therefore there is no need for cardiac or syncope workup. We discussed potential need for head and cervical spine CT but patient does not have a headache or neck pain and concern for a skull fracture versus subarachnoid or subdural hemorrhage is low and therefore he does not want this performed. Therefore the ear was sutured as documented below and patient is otherwise safe for discharge The right ear was cleaned with chlorhexidine. It was anesthetized using 5 mL of 2% lidocaine without epinephrine in local fashion. The wound was copiously irrigated with normal saline. Then five 4-0 Ethilon sutures were placed in simple interrupted fashion bring the wound together well with good approximation of the wound edges. Patient tolerated the procedure well without complication Follows with [facility] every 6 months. All his prescriptions are prescribed by providers at [facility]. No bowel, Gi, or urinary issues. DM: taking Metformin xr 500 mg once daily. He had A1c done at [facility] in Sep with result 6.8. He does not check BS much at home. No hypoglycemic issues. No neuropathy in feet. He does not eat bread anymore. Eats salads daily. HTN: Does check BP at home with readings running 140/65. No chest pains, dizziness, or SOB. 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 Lipid: Taking Lipitor 40 mg daily, tolerating well. 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 Tries to watch diet. He does not eat bread anymore. Eats salads daily. Depression/DAVID: Taking Celexa 10 mg daily. No counseling at this time. Was going every 6 months through [facility] but was advised he didn't need to return unless he wanted to. Past medical history, appointments, medications, allergies reviewed. 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 Other and unspecified hyperlipidemia Previous Surgical History PAST SURGICAL HISTORY Procedure Laterality Date COLONOSCOPY FLX DX W/COLLJ SPEC WHEN PFRMD 09/27/2009 COLSC FLX W/RMVL OF TUMOR POLYP LESION SNARE TQ 10/31/05 PAST SURGICAL HISTORY OF 09/25 brachytherapy, prostate [facility] SIGMOIDOSCOPY FLX DX W/COLLJ SPEC BR/WA IF PFRMD Sigmoidoscopy, flexible VITRECTOMY MECHANICAL PARS PLANA left eye- aroung 2017 XCAPSL CTRC RMVL INSJ IO LENS PROSTH W/O ECP [facility] Family History FAMILY HISTORY Problem Relation Age of Onset None Other Glaucoma No Family History Macular Degen No Family History Blindness No Family History Detached Retina No Family History Patient Allergies ALLERGIES Allergen Reactions Kleber Inhibitors Mental Status Change Atenolol Other: See Comments Difficulty breathing with activity Curre (more content not included)... Normal [facility] Lower GI hemoglobin IA Ql (S tl)on 12-19-2024 FECAL OCCULT BLOOD Negative [facility] CNOVon 12-18-2024 CNOV Office Visit (WSTR) LUIS FERNANDO HOWARD ([id number]) 1940 M Date Time Provider Department 12/18/24 1:30 PM PAULINE PEREZ [facility] During your visit today, we recorded the following information about you: Temperature Pulse Respiration Blood pressure 97.5 degrees 64/minute 16/minute 133/73 Weight 79.4 kg Pauline Perez APRN.CLINICAL RESEARCH SPECIALIST 12/18/2024 1:50 PM Signed [facility] Subjective Luis Fernando Howard is a 84 year old male. Patient presents with: Suture Removal: 4 suture top of RIGHT ear at [facility] 12/10/24 Patient came in with complaints of needing 4 sutures taken out of his ear. Patient had 4 sutures placed 8 days ago at the ER in [place]. Patient denies any complications with healing. The history is provided by the patient. No metalsmith was used. Suture Removal Review of Systems Constitutional: Negative. HENT: Negative. Objective BP 133/73 Pulse 64 Temp 36.4 ?C (97.5 ?F) (Right Tympanic) Resp 16 Wt 79.4 kg (175 lb 0.7 oz) SpO2 98% BMI 25.12 kg/m? Physical Exam Constitutional: Appearance: Normal appearance. HENT: Ears: Comments: 4 sutures removed in the area marked above. They were sewn tightly so calvillo were left in the ear. No bleeding at this time no signs of infection instructed to keep clean dry. Pulmonary: Effort: Pulmonary effort is normal. Neurological: Mental Status: He is alert. 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 citalopram hydrobromide (CELEXA) 10 mg tablet Take by mouth once daily. loratadine (CLARITIN) 10 mg tablet Take 10 mg by mouth once daily. losartan (COZAAR) 50 mg tablet Take 2 tablets by mouth once daily. meloxicam (MOBIC) 15 mg tablet Take 1 tablet by mouth once daily. With food. atorvastatin (LIPITOR) 40 mg tablet Take 1 tablet by mouth once daily. cholecalciferol, vitamin D3, (VITAMIN D3 ORAL) Take by mouth. metFORMIN ER (GLUCOPHAGE XR) 500 mg 24 hr tablet Take 1 tablet by mouth daily with breakfast. metFORMIN ER (GLUCOPHAGE XR) 500 mg 24 hr tablet Take 1 tablet by mouth daily with breakfast. Aspirin 81 mg Tab Take 1 tablet by mouth once daily. Take with food. (Patient taking differently: Take 81 mg by mouth as needed. Take with food.) furosemide 20 mg tablet Take 1 tablet by mouth once daily as needed. FAMILY HISTORY Problem Relation Age of Onset None Other Glaucoma No Family History Macular Degen No Family History Blindness No Family History Detached Retina No Family History Social History Tobacco Use Smoking status: Never Smokeless tobacco: Never Vaping Use Vaping status: Never Used Substance Use Topics Alcohol use: Yes Comment: wine daily Drug use: No {ASSESSMENT/PLAN: 1. Visit for suture removal - ICD9: V58.32, ICD10: Z48.02 Patient tolerated procedure well all 4 sutures removed completely. Pauline Perez APRN.[facility] Procedures Allergies As of Date: 12/18/2024 Noted Allergy Reaction KLEBER INHIBITORS 12/10/2011 1 - Mental Status Change ATENOLOL 09/14/2015 14 - Other: See Comments Comments: Difficulty breathing with activity Date Reviewed: 12/18/2024 Reviewed by: Camelia Monroy MA - Fully Assessed Reason for Visit: Suture Removal [105] Cmt: 4 suture top of RIGHT ear at [facility] 12/10/24 Primary Visit Diagnosis:Visit for suture removal [Z48.02] Prescriptions as of 12/18/2024 - triamcinolone (KENALOG) 0.025 % cream Apply 1 application to affected area twice daily. - citalopram hydrobromide (CELEXA) 10 mg tablet Take by mouth once daily. - loratadine (CLARITIN) 10 mg tablet Take 10 mg by mouth once daily. - metFORMIN ER (GLUCOPHAGE XR) 500 mg 24 hr tablet Take 1 tablet by mouth daily with breakfast. - metFORMIN ER (GLUCOPHAGE XR) 500 mg 24 hr tablet Take 1 tablet by mouth daily with breakfast. - losartan (COZAAR) 50 mg tablet Take 2 tablets by mouth once daily. - meloxicam (MOBIC) 15 mg tablet Take 1 tablet by mouth once daily. With food. - atorvastatin (LIPITOR) 40 mg tablet Take 1 tablet by mouth once daily. - cholecalciferol, vitamin D3, (VITAMIN D3 ORAL) (more content not included)... Normal [facility] Emergency Department Summary on 12-10-2024 Emergency Department Summary [facility] Medical Records Department [address] [place] [address] Emergency Department Summary 12/10/24 MR#: [id number] Acct: [id number] Name: LUIS FERNANDO HOWARD Rep #: [id number] : 1940 84 From: Marek Ponce DO PCP: Dr. Reena Robles MD Status:DEP ER Location: ED HPI History of Present Illness Chief Complaint: Fall Informant: patient and spouse/S.O. Narrative Narrative: Patient is 84-year-old male with past medical she of hypertension hyperlipidemia. He states that he typically backs up to the bed and then sits down on it. He states a few hours ago he went to do this but he was not close enough to the bed and therefore fell and cut his right ear on the bedside table. He denies any loss of consciousness history of bleeding disorder or blood thinner use. He states he did not think much of this as he was able to get the bleeding to stop after a few minutes. However he states the bleeding returned and this time he cannot get the area to stop and with concern he may need sutures comes in for evaluation. [facility] Medical History (Updated 12/11/24 @ 16:[address] Marek Ponce DO) HLD (hyperlipidemia) Malignant neoplasm of prostate HTN (hypertension) Diverticulosis of colon Home Medications ???Medication ???Instructions ???Recorded ???Last Taken ???Type aspirin 81 mg tablet,delayed 81 mg PO DAILY PRN pain 12/07/20 U nknown History release atorvastatin 40 mg tablet 40 mg PO DAILY 12/07/20 Unknown Hi story cholecalciferol (vitamin D3) 100 100 mcg PO DAILY 12/07/20 Unknown History mcg (4,000 unit) capsule losartan 100 mg tablet 100 mg PO DAILY 12/07/20 Unknown H istory Allergy/AdvReac Type Severity Reaction Status Date / Time KLEBER Inhibitors AdvReac Mental Verified 12/10/24 02:41 status change atenolol AdvReac Shortness Verified 12/10/24 02:41 of breath Surgical History H/O vitrectomy H/O sigmoidoscopy H/O cataract removal with insertion of prosthetic lens Hx of brachytherapy Social History Smoking Status: Never smoker alcohol intake: current alcohol intake frequency: 0-2 drinks per day ROS ROS ED Constitutional Constitutional ED: Denies chills or fever(s) Eyes Eyes: Denies blurry vision or change in vision ENT ENT ED: Denies sore throat Cardiovascular Cardiovascular: Reports other Details: Negative syncope ; Denies chest pain Respiratory/Chest Respiratory/Chest: Denies cough or dyspnea Gastrointestinal Gastrointestinal: Denies abdominal pain, diarrhea, nausea or vomiting Genitourinary Genitourinary ED: Denies dysuria Musculoskeletal Musculoskeletal: Denies back pain or neck pain Integumentary Reports other Details: Positive right ear laceration Neurologic Neurologic: Denies headache(s) Hematologic/Lymphati c Hematologic/Lymphati c: Denies easy bleeding or easy bruising EXAM Physical Exam Const Vital Signs: 12/10/24 02:40 12/10/24 02:40 Temperature 98.1 F Temperature Source Oral Pulse Rate 78 Respiratory Rate 16 Respiratory Effort Normal Non-Labored Blood Pressure 150/92 H Blood Pressure Mean 111 Pulse Ox 98 Oxygen Delivery Method Room Air Room Air Positive well nourished and well developed General Appearance ED: well developed HEENT HEENT Narrative: No signs of depressed or basilar skull fracture There is a linear subcutaneous layer deep 2 cm laceration along the upper portion of the right ear. There is persistent ooze of blood without retained foreign body or arterial injury. Eyes PERRL and EOMs intact bilaterally Neck supple Neck Narrative: No bony deformity or step-off of the cervical spine no midline tenderness to palpation Resp normal respiratory effort and clear to auscultation bilaterally Cardio regular rate and regular rhythm Back/Spine Back/Spine Narrative: No bony deformity or step-off of the thoracic or lumbar spine no midline tenderness to palpation Extremity normal to inspection Extremity Narrative: Pelvis is stable there is no shortening or external rotation of either lower extremity Patient is able to move all extremities without difficulty Neuro oriented x3, CN's II-XII intact bilaterally and no sensory deficits noted Sensorium / Orientation: alert Motor Exam: strength 5/5 throughout Psych mental status grossly normal Skin Skin Narrative: Laceration to the right ear as documented above MDM MDM MDM Narrative Medical decision making narrative: Patient arrived to the ER hypertensive but has a past medical history of this and otherwise vitals are stable. He reported a mechanical fall and therefore there is no need for cardiac or syncope workup. We discuss (more content not included)... Normal [facility] CBCDIF (EXTERNAL)on 10-07-19 BASO ABS 0.1 K/uL 0 - 0.2 K/uL [facility] Basophils/100 WBC (Bld) 0.9 % 0 - 1.5 % [facility] EOS ABS 0.2 K/uL 0.1 - 0.3 K/uL [facility] Eosinophils/100 WBC (Bld) 4 % Abnormal 1 - 3 % [facility] Hematocrit (Bld) [Volume fraction] 45.5 % 39 - 55 % [facility] Hemoglobin (Bld) [Mass/Vol] 15.6 g/dL 14 - 16.5 g/dL [facility] Lymphocytes (Bld) [#/Vol] 2 10*3/uL 1.2 - 4 K/uL [facility] Lymphocytes/100 WBC (Bld) 34.7 % Abnormal 20 - 30 % [facility] MCH (RBC) [Entitic mass] 34 pg 25.4 - 34.6 pg [facility] MCHC (RBC) [Mass/Vol] 34.3 g/dL 30 - 36 g/dL [facility] MCV (RBC) [Entitic vol] 99.2 fL Abnormal 79 - 98 fL [facility] MONO ABS 0.6 K/uL 0 - 1 K/uL [facility] Monocytes/100 WBC (Bld) 11.3 % Abnormal 2 - 8 % [facility] NEUT ABS 2.8 K/uL 1.9 - 8 K/uL [facility] Neutrophils/100 WBC (Bld) 49.1 % 40 - 74 % [facility] Platelet mean volume (Bld) [Entitic vol] 9.3 fL 7.4 - 10.4 fL [facility] Platelets (Bld) [#/Vol] 211 10*3/uL 140 - 440 K/uL [facility] RBC (Bld) [#/Vol] 4.59 10*6/uL [facility] RDW 13.4 K/uL Abnormal 140 - 440 K/uL [facility] WBC (Bld) [#/Vol] 5.6 10*3/uL 3.9 - 11 K/uL [facility] CMP (EXTERNAL)on 10-07-2024 Albumin [Mass/Vol] 4.2 g/dL [facility] Alk Phos Total 63 U/L 45 - 117 U/L [facility] ALT [Catalytic activity/Vol] 54 U/L 12 - 78 U/L [facility] AST [Catalytic activity/Vol] 33 U/L 8 - 37 U/L [facility] Bili Total 0.9 mg/dL 0.2 - 1 mg/dL [facility] Calcium [Mass/Vol] 9.4 mg/dL 8.5 - 10. 1 mg/dL [facility] Chloride [Moles/Vol] 104 mmol/L [facility] CO2 [Moles/Vol] 25 mmol/L [facility] Creatinine [Mass/Vol] 1 mg/dL [facility] GFR 75 mL/MIN [facility] GFR AFR AMER [facility] Glucose [Mass/Vol] 148 mg/dL Abnormal [facility] Potassium [Moles/Vol] 4.2 mmol/L 3.5 - 5.1 mmol/L [facility] Protein [Mass/Vol] 6.9 g/dL [facility] Sodium [Moles/Vol] 136 mmol/L 136 - 145 mmol/L [facility] Urea nitrogen [Mass/Vol] 15 mg/dL [facility] HBA1C (OUTSIDE)on 10-07-2024 HbA1c (Bld) [Mass fraction] 6.8 % [facility] LIPID PANEL (EXTERNAL)on Cholesterol [Mass/Vol] 144 mg/dL [facility] Cholesterol in HDL [Mass/Vol] 39 mg/dL [facility] Cholesterol in LDL [Mass/Vol] 85 mg/dL [facility] Non-HDL Cholesterol [facility] TC:HDL Ratio [facility] Triglyceride [Mass/Vol] 146 mg/dL [facility] No Panel Informationon 10-07 Interpretation and review of laboratory results Abnormal [facility] TSH (EXTERNAL)on 10-07-2024 TSH Qn 1.574 m[IU]/L [facility] CNPNon 07-28-2024 CNPN Telephone ([facility] LUIS FERNANDO HOWARD ([id number]) 1940 M Date Time Provider Department 07/28/24 BONITA GAR During your visit today, we recorded the following information about you: Bonita Gar APRN.PRIYA 07/28/2024 9:55 AM Signed Can you please call the patient and let him know that [facility]. He is past due for a Medicare wellness/follow-up with PCP. I would recommend follow-up in the office in the next 3 to 6 months. At that time if labs are needed they can be ordered. Boniat Gar APRN.Charlee Moses LPN 07/28/2024 10:32 AM Signed TC to ptEve LM to call office, ask for triage nurse to get results. VIBHA Garcia Sherrie, RN 07/28/2024 10:41 AM Signed Patient returned call and given provider's message below and patient verbalized understanding. Beverly Buckley RN Allergies As of Date: 07/28/2024 Noted Allergy Reaction KLEBER INHIBITORS 12/10/2011 1 - Mental Status Change ATENOLOL 09/14/2015 14 - Other: See Comments Comments: Difficulty breathing with activity Date Reviewed: 03/09/2023 Reviewed by: Sandra Swenson MA - Fully Assessed Reason for Visit: Results [95] Prescriptions as of 07/28/2024 - triamcinolone (KENALOG) 0.025 % cream Apply 1 application to affected area twice daily. - citalopram hydrobromide (CELEXA) 10 mg tablet Take by mouth once daily. - loratadine (CLARITIN) 10 mg tablet Take 10 mg by mouth once daily. - metFORMIN ER (GLUCOPHAGE XR) 500 mg 24 hr tablet Take 1 tablet by mouth daily with breakfast. - metFORMIN ER (GLUCOPHAGE XR) 500 mg 24 hr tablet Take 1 tablet by mouth daily with breakfast. - losartan (COZAAR) 50 mg tablet Take 2 tablets by mouth once daily. - meloxicam (MOBIC) 15 mg tablet Take 1 tablet by mouth once daily. With food. - atorvastatin (LIPITOR) 40 mg tablet Take 1 tablet by mouth once daily. - cholecalciferol, vitamin D3, (VITAMIN D3 ORAL) Take by mouth. - Aspirin 81 mg Tab Take 1 tablet by mouth once daily. Take with food. - furosemide 20 mg tablet Take 1 tablet by mouth once daily as needed. Meds Comments as of 07/19/2021: [facility] 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] 12/24/2009 Knee pain, right [M25.561] 02/03/2011 Essential hypertension, benign [I10] 07/23/2011 DDD (degenerative disc disease), lumbar [M51.36*07/23/2011 PVC's (premature ventricular contractions) [I49*04/27/2015 Midline low back pain with right-sided sciatica*08/09/2015 Osteoarthritis of spine with radiculopathy, lum*09/03/2015 Right-sided low back pain with right-sided scia*09/03/2015 DALE (obstructive sleep apnea) [G47.33] 04/26/2020 Encounter Status:Closed by TINA BUCKLEY on 07/28/24 Normal [facility] CBC W/DIFF/PLT (EXTERNAL LAB GT)on 04-05-2024 BASO ABSOLUTE 0.1 [facility] Basophils/100 WBC (Bld) 1.0 % 0.0 - 3.0 % [facility] EOS ABSOLUTE 0.2 [facility] Eosinophils/100 WBC (Bld) 4.6 % Abnormal 0.0 - 3.0 % [facility] Erythrocyte distribution width (RBC) [Ratio] 13.8 % 12.3 - 15.4 % [facility] Hematocrit (Bld) [Volume fraction] 45.6 % 37.5 - 51.0 % [facility] Hemoglobin (Bld) [Mass/Vol] 15.4 g/dL 12.6 - 17.7 g/dL [facility] Lymphocytes/100 WBC (Bld) 36.1 % 21.0 - 51.0 % [facility] LYMPHS ABSOLUTE 1.9 [facility] MCH 33.5 Pg Abnormal 26.6 - 33 Pg [facility] MCHC (RBC) [Mass/Vol] 33.7 g/dL 31.5 - 35.7 g/dL [facility] MCV (RBC) [Entitic vol] 99.4 fL Abnormal 79 - 97 fL [facility] MONOCYTES ABSOLUTE 0.6 [facility] Monocytes/100 WBC (Bld) 10.6 % Abnormal 4.0 - 8.0 % [facility] NEUTROPHILS ABSOLUTE 2.5 [facility] Neutrophils/100 WBC (Bld) 47.7 % Abnormal 54.0 - 78.0 % [facility] NRBC 0.1 /100 WBC [facility] Platelet mean volume (Bld) [Entitic vol] 9.0 fL 7.4 - 10.4 fL [facility] Platelets (Bld) [#/Vol] 198 10*3/uL [facility] RBC (Bld) [#/Vol] 4.58 10*6/uL [facility] WBC (Bld) [#/Vol] 5.3 10*3/uL 3.4 - 10.8 K/uL [facility] CMP (EXTERNAL)on 04-05-2024 Albumin [Mass/Vol] 4.4 g/dL [facility] Alk Phos Total 64 U/L 45 - 117 U/L [facility] ALT [Catalytic activity/Vol] 40 U/L 12 - 78 U/L [facility] Anion gap [Moles/Vol] 11.6 mmol/L 10 - 20 [facility] AST [Catalytic activity/Vol] 30 U/L 8 - 37 U/L [facility] Bili Total 1.0 mg/dL 0.2 - 1 mg/dL [facility] Calcium [Mass/Vol] 9.3 mg/dL 8.5 - 10. 1 mg/dL [facility] Chloride [Moles/Vol] 104 mmol/L [facility] CO2 [Moles/Vol] 24 mmol/L [facility] Creatinine [Mass/Vol] 1.0 mg/dL [facility] GFR 75.0 mL/MIN [facility] Glucose [Mass/Vol] 134 mg/dL Abnormal [facility] Potassium [Moles/Vol] 4.6 mmol/L 3.5 - 5.1 mmol/L [facility] Protein [Mass/Vol] 7.0 g/dL [facility] Sodium [Moles/Vol] 135 mmol/L Abnormal 136 - 145 mmol/L [facility] Urea nitrogen [Mass/Vol] 13 mg/dL [facility] FREE T4on 04-05-2024 Free T4 [Mass/Vol] 0.87 ng/dL 0.83 - 1. 60 ng/dL [facility] Comment on above: [facility] HbA1c (Bld)on 04-05-2024 HbA1c (Bld) [Mass fraction] 6.3 % Abnormal 4.8 - 5.9 % [facility] Comment on above: [facility] LIPID PANEL (EXTERNAL)on Cholesterol [Mass/Vol] 132 mg/dL [facility] HDC-L 43 mg/dL 39 mg/dL [facility] LDL Chol, calculated 82 [facility] Triglyceride [Mass/Vol] 131 mg/dL - 149 mg/dL [facility] No Panel Informationon 04-05 Interpretation and review of laboratory results Abnormal [facility] TSH (EXTERNAL)on 04-05-2024 TSH Qn 1.559 m[IU]/L [facility] Comment on above: [facility] VITAMIN D 25 HYDROXY (AK,AV, EU,FV,HL,ZULEIMA,MM,SP)on 04-05-2024 Vitamin D 25 Hydroxy 32.30 ng/mL 30 - 75 ng/mL [facility] Comment on above: [facility] Vital Signs Date Time Vital Sign Value Performing Clinician Facility 02-27-2025 08:12-0400 Body height 177.[address] Reena Robles MD Work Phone: [facility] 02-27-2025 08:12-0400 Body mass index (BMI) [Ratio] 24.5 kg/m2 Dr. Reena Robles MD Work Phone: [facility] 02-27-2025 08:12-0400 Body temperature 97.4 [degF] Dr. Reena Robles MD Work Phone: 4(253)759-527785 [place] [address] 02-27-2025 08:12-0400 Body weight 77.[address] Reena Robles MD Work Phone: 1(161)773-074785 [place] [address] 02-27-2025 08:12-0400 Diastolic blood pressure 84 mm[Hg] Dr. Reena Robles MD Work Phone: 2(394)[phone] [place] [address] 02-27-2025 08:12-0400 Heart rate 71 /min Dr. Reena Robles MD Work Phone: 8(324)944-521385 [place] [address] 02-27-2025 08:12-0400 Respiratory rate 16 /min Dr. Reena Robles MD Work Phone: 3(364)345-073485 [place] [address] 02-27-2025 08:12-0400 SaO2% (BldA) [Mass fraction] 96 % Dr. Reena Robles MD Work Phone: [facility] 02-27-2025 08:12-0400 Systolic blood pressure 157 mm[Hg] Dr. Reena Robles MD Work Phone: [facility] 01-17-2025 10:29-0400 Body mass index (BMI) [Ratio] 24.74 kg/m2 Reena Robles MD Work Phone: [facility] 01-17-2025 10:29-0400 Body weight 78.2 kg Reena Robles MD Work Phone: [facility] 01-17-2025 10:29-0400 Diastolic blood pressure 68 mm[Hg] Reena Robles MD Work Phone: [facility] 01-17-2025 10:29-0400 Heart rate 68 /min Reena Robles MD Work Phone: [facility] 01-17-2025 10:29-0400 Respiratory rate 14 /min Reena Robles MD Work Phone: [facility] 01-17-2025 10:29-0400 Systolic blood pressure 110 mm[Hg] Reena Robles MD Work Phone: [facility] 12-29-2024 09:52-0400 Body mass index (BMI) [Ratio] 25.31 kg/m2 Reena Robles MD Work Phone: [facility] 12-29-2024 09:52-0400 Body weight 80 kg Reena Robles MD Work Phone: [facility] 12-29-2024 09:52-0400 Diastolic blood pressure 80 mm[Hg] Reena Robles MD Work Phone: [facility] 12-29-2024 09:52-0400 Heart rate 62 /min Reena Robles MD Work Phone: [facility] 12-29-2024 09:52-0400 Respiratory rate 16 /min Reena Robles MD Work Phone: [facility] 12-29-2024 09:52-0400 Systolic blood pressure 140 mm[Hg] Reena Robles MD Work Phone: [facility] 12-10-2024 04:19-0400 Body temperature 97.8 [degF] Dr. Reena Robles MD Work Phone: [facility] 12-10-2024 04:19-0400 Diastolic blood pressure 72 mm[Hg] Dr. Reena Robles MD Work Phone: [facility] 12-10-2024 04:19-0400 Heart rate 68 /min Dr. Reena Robles MD Work Phone: [facility] 12-10-2024 04:19-0400 Respiratory rate 16 /min Dr. Reena Robles MD Work Phone: [facility] 12-10-2024 04:19-0400 SaO2% (BldA) [Mass fraction] 99 % Dr. Reena Robles MD Work Phone: [facility] 12-10-2024 04:19-0400 Systolic blood pressure 134 mm[Hg] Dr. Reena Robles MD Work Phone: [facility] 12-10-2024 02:40-0400 Body height 177.[address] Reena Robles MD Work Phone: [facility] 12-10-2024 02:40-0400 Body mass index (BMI) [Ratio] 25.3 kg/m2 Dr. Reena Robles MD Work Phone: [facility] 12-10-2024 02:40-0400 Body weight 80.[address] Reena Robles MD Work Phone: [facility] 03-09-2023 13:39-0400 Body temperature 100.71 [degF] Valorie Praisler-Wood [employer].CLINICAL RESEARCH SPECIALIST Work Phone: [facility] 03-09-2023 13:39-0400 Body weight 76.75 kg Valorie Praisler-Wood INS[employer].CLINICAL RESEARCH SPECIALIST Work Phone: [facility] 03-09-2023 13:39-0400 Diastolic blood pressure 80 mm[Hg] Valorie Praisler-Wood INSPECT[employer].CLINICAL RESEARCH SPECIALIST Work Phone: [facility] 03-09-2023 13:39-0400 Heart rate 75 /min Valorie Praisler-Wood INSPECT[employer].CLINICAL RESEARCH SPECIALIST Work Phone: [facility] 03-09-2023 13:39-0400 Respiratory rate 21 /min Valorie Praisler-Wood INS[employer].CLINICAL RESEARCH SPECIALIST Work Phone: [facility] 03-09-2023 13:39-0400 SaO2% (BldA) [Mass fraction] 97 % Valorie Praisler-Wood INSPECT[employer].CLINICAL RESEARCH SPECIALIST Work Phone: [facility] 03-09-2023 13:39-0400 Systolic blood pressure 130 mm[Hg] Valorie Praisler-Wood INS[employer].CLINICAL RESEARCH SPECIALIST Work Phone: [facility] 07-28-2022 08:50-0500 Body weight 78.93 kg Bonita Kunzhof INS[employer].CLINICAL RESEARCH SPECIALIST Work Phone: [facility] 07-28-2022 08:50-0500 Diastolic blood pressure 96 mm[Hg] Bonita Kunzhof INS[employer].CLINICAL RESEARCH SPECIALIST Work Phone: [facility] 07-28-2022 08:50-0500 Heart rate 70 /min Bonita Kunzhof INSPECT[employer].CLINICAL RESEARCH SPECIALIST Work Phone: [facility] 07-28-2022 08:50-0500 Respiratory rate 16 /min Bonita Kunzhof INS[employer].CLINICAL RESEARCH SPECIALIST Work Phone: [facility] 07-28-2022 08:50-0500 SaO2% (BldA) [Mass fraction] 96 % Bonita Kunzhof [employer].CLINICAL RESEARCH SPECIALIST Work Phone: [facility] 07-28-2022 08:50-0500 Systolic blood pressure 154 mm[Hg] Bonita Kunzhof [employer].CLINICAL RESEARCH SPECIALIST Work Phone: [facility] 01-17-2022 10:07-0400 Body weight 76.66 kg Reena Robles MD Work Phone: [facility] 01-17-2022 10:07-0400 Diastolic blood pressure 66 mm[Hg] Reena Robles MD Work Phone: [facility] 01-17-2022 10:07-0400 Heart rate 68 /min Reena Robles MD Work Phone: [facility] 01-17-2022 10:07-0400 Respiratory rate 16 /min Reena Robles MD Work Phone: [facility] 01-17-2022 10:07-0400 Systolic blood pressure 140 mm[Hg] Reena Robles MD Work Phone: [facility] Encounters Encounter Date Encounter Type Care Provider Facility Start: 03-20-2025 End: 03-20-[address] Reena Robles MD Work Phone: -[facility] Start: 03-20-2025 End: 03-20-2025 Patient encounter procedure Gabriela Bui [employer] -[facility] Work Phone: Start: 03-20-2025 End: 03-20-2025 ambulatory Gabriela Bui NP Facility:[facility] Start: 02-27-2025 End: 02-27-2025 Patient encounter procedure Gabriela Bui [employer]-C -[facility] Work Phone: Start: 02-27-2025 End: 02-27-[address] Reena Robles MD Work Phone: -[facility] Start: 01-17-2025 End: 01-17-2025 Office outpatient visit 25 minutes Reena Robles MD Work Phone: [facility] Comment on above: Type 2 diabetes erica itus without complication, without long- term current use of insulin (HCC) (Primary Dx); Anxiety with depression; Mixed hyperlipidemia Start: 01-17-2025 End: 01-17-2025 ambulatory REENA ROBLES Facility:[facility] Start: 12-29-2024 End: 12-29-2024 Office outpatient visit 25 minutes Reena Robles MD Work Phone: [facility] Comment on above: Fall, initial encoun ter (Primary Dx); Screening for depression; Encounter for screening examination for other mental health and behavioral disorders; Laceration of right ear region; Mixed hyperlipidemia; Essential hypertension, benign; Type 2 diabetes mellitus without complication, without long-term current use of insulin (HCC); Anxiety with depression Start: 12-29-2024 End: 12-29-2024 ambulatory REENA ROBLES Facility:[facility] Start: 12-18-2024 End: 12-18-2024 ambulatory [facility] Facility:[facility] Start: 12-10-2024 End: 12-10-2024 Emergency department patient visit Dr. Reena Robles MD Work Phone: -Emergency Department Work Phone: Start: 07-28-2024 End: 07-28-2024 Telephone encounter Bonita Gar APRN.CNP Work Phone: [facility] Comment on above: Results Start: 07-15-2024 End: 07-15-2024 ambulatory Reena Robles MD Work Phone: [facility] Comment on above: Handicap Parking Papa card Start: 07-07-2024 End: 07-11-2024 ambulatory Reena Robles MD Work Phone: [facility] Comment on above: HANDICAL PLACARD Start: 07-05-2024 End: 07-06-2024 ambulatory Bonita Gar [employer].CLINICAL RESEARCH SPECIALIST Work Phone: [facility] Start: 07-05-2024 End: 07-06-2024 Patient encounter procedure Bonita Gar [employer].CLINICAL RESEARCH SPECIALIST Work Phone: [facility] Comment on above: LAB TESTS FOR NEXT A PPOINTMENT Start: 04-10-2023 Telephone encounter Miranda Ken pastor [facility] Work Phone: Psychology Comment on above: bh consult Start: 03-26-2023 ambulatory Reena khanna MD Work Phone: [facility] Comment on above: LAST ALT TEST AT [facility] Start: 03-09-2023 End: 03-09-2023 Patient encounter procedure Valorie Chi [employer].CLINICAL RESEARCH SPECIALIST Work Phone: [facility] Comment on above: Cellulitis of skin ( Primary Dx); Insect bite, unspecified site, initial encounter Start: 10-24-2022 Telephone encounter Bonita chacon [employer].CLINICAL RESEARCH SPECIALIST Work Phone: [facility] Comment on above: Results (Labs ) Start: 07-28-2022 End: 07-28-2022 Patient encounter procedure Bonita Gar [employer].CLINICAL RESEARCH SPECIALIST Work Phone: [facility] Comment on above: Essential hypertensi on, benign (Primary Dx); Mixed hyperlipidemia; Prediabetes; DALE (obstructive sleep apnea); Osteoarthritis of spine with radiculopathy, lumbar region; Bilateral leg edema; DDD (degenerative disc disease), lumbar; Left hip pain Start: 04-29-2022 Telephone encounter Reena sarah MD Work Phone: [facility] Comment on above: Orders Start: 01-17-2022 End: 01-17-2022 Patient encounter procedure Reena Robles MD Work Phone: [facility] Comment on above: Essential hypertensi on, benign (Primary Dx); Mixed hyperlipidemia; DALE (obstructive sleep apnea); Malignant neoplasm of prostate (HCC); Screening for colon cancer; Elevated glucose Procedures Date Procedure Procedure Detail Performing Clinician Start: 12-29-2024 Adult depression screening assessment Reena Robles MD Work Phone: Start: 12-19-2024 IMMUNOCHEMICAL FECAL OCCULT BLOOD TEST [facility] Provider Start: 10-07-2024 CBCDIF (EXTERNAL) [facility] Start: 10-07-2024 Comprehensive metabo lic 2000 panel - Serum or Plasma [facility] Start: 10-07-2024 Hemoglobin A1c/Hemoglobin.total in Blood [facility] Provider Start: 10-07-2024 Lipid panel [facility] Provid er Start: 10-07-2024 PSA screening [facility] Provi sabrina Start: 10-07-2024 Thyrotropin [Units/volume] in Serum or Plasma [facility] Start: 04-05-2024 CBC W/DIFF/PLT (EXTE RNAL LAB GT) Cande Penix CLINICAL RESEARCH SPECIALIST Work Phone: Start: 04-05-2024 Comprehensive metabo lic 2000 panel - Serum or Plasma Cande Penix CLINICAL RESEARCH SPECIALIST Work Phone: Start: 04-05-2024 Hemoglobin A1c/Hemoglobin.total in Blood Cande Penix CLINICAL RESEARCH SPECIALIST Work Phone: Start: 04-05-2024 Lipid panel Cande Peni x CLINICAL RESEARCH SPECIALIST Work Phone: Start: 04-05-2024 PSA screening Cande Pen ix CLINICAL RESEARCH SPECIALIST Work Phone: Comment on above: [facility] Start: 04-05-2024 Thyrotropin [Units/volume] in Serum or Plasma Cande Penix CLINICAL RESEARCH SPECIALIST Work Phone: Start: 04-05-2024 Thyroxine (T4) free [Mass/volume] in Serum or Plasma Cande Penix CLINICAL RESEARCH SPECIALIST Work Phone: Start: 04-05-2024 VITAMIN D 25 HYDROXY (EU,FV,HL,ZULEIMA,MM,SP) Cande Poon CLINICAL RESEARCH SPECIALIST Work Phone: Start: 01-17-2022 Adult depression screening assessment Reena Robles MD Work Phone: History of cataract extraction H/O cataract removal with insertion of prosthetic lens Dr. Reena Robles MD Work Phone: History of radiation therapy Hx of brachytherapy Dr. Reena Robles MD Work Phone: Plan of Treatment Date Care Activity Detail Author Start: 04-05-2027 Diabetes Screening Diabetes Screenin g [facility] Start: 03-12-2026 DIABETES SCREEN DIABETES SCREEN [facility] Start: 02-02-2026 DIABETES SCREEN DIABETES SCREEN [facility] Start: 01-17-2026 Diabetic foot examination Diabetic Foot Exam [facility] Start: 01-10-2026 Glaucoma screening Dilated Retinal E xam [facility] Start: 12-29-2025 Anxiety Screening Anxiety Screening [facility] Start: 12-29-2025 Covid-19 Vaccine ( season) Covid-19 Vaccine () [facility] Comment on above: Postponed from 04/24 (Declined at this time) Start: 12-29-2025 Depression Screening Depression Scre ening [facility] Start: 10-23-2025 DIABETES SCREEN DIABETES SCREEN [facility] Start: 10-07-2025 Hepatitis B screening Urine Al bumin:Creatinine Ratio [facility] Start: 10-07-2025 Hepatitis B surface antibody level LDL Cholesterol [facility] Start: 07-24-2025 DIABETES SCREEN DIABETES SCREEN [facility] Start: 04-06-2025 Hemoglobin A1c measurement HbA1C [facility] Start: 01-08-2025 DIABETES SCREEN DIABETES SCREEN [facility] Start: 12-10-2024 Simple repair f/e/e/n/l/m 2.5cm/< RPR F/E/E/N/L/M 2.5 CM/< [facility] Start: 12-10-2024 [facility] Start: 08-24-2024 Advance Directive Discussion Advance Directive Discussion [facility] Start: 04-24-2024 Covid-19 Vaccine (4 - 2024-25 season) Covid-19 Vaccine ( season) [facility] Start: 04-24-2024 Influenza vaccination Influenza Vacc ine (#1) [facility] Start: 11-02-2023 Urine microalbumin profile [facility] Start: 08-24-2023 Advance Directive Discussion Advance Directive Discussion [facility] Start: 07-28-2023 ANNUAL PCP TEAM HARD HAT DIVER RADHA DISEASE VISIT ANNUAL PCP TEAM CHRONIC DISEASE VISIT [facility] Start: 04-24-2023 Influenza vaccination INFLUENZA (#1) [facility] Start: 01-26-2023 End: 03-28-2023 Lipid 1996 panel - Serum or Plasma LIPID PANEL BASIC Lab Routine Mixed hyperlipidemia Expected: 01/26/2023, Expires: 03/28/2023 [facility] Work Phone: Comment on above: Expected: 01/26/2023 , Expires: 03/28/2023 Start: 01-17-2023 Adult depression screening assessment DEPRESSION SCREENING [facility] Start: 01-17-2023 ANNUAL PCP TEAM HARD HAT DIVER RADHA DISEASE VISIT ANNUAL PCP TEAM CHRONIC DISEASE VISIT [facility] Start: 10-26-2022 End: 12-26-2022 Comprehensive metabolic 2000 panel - Serum or Plasma COMP METABOLIC PANEL Lab Routine Prediabetes Expected: 10/26/2022, Expires: 12/26/2022 [facility] Work Phone: Comment on above: Expected: 10/26/2022 , Expires: 12/26/2022 Start: 10-26-2022 End: 12-26-2022 Hemoglobin A1c in Blood HGB A1C Lab Routine Prediabetes Expected: 10/26/2022, Expires: 12/26/2022 [facility] Work Phone: Comment on above: Expected: 10/26/2022 , Expires: 12/26/2022 Start: 08-24-2022 ADVANCE DIRECTIVE DISCUSSION ADVANCE DIRECTIVE DISCUSSION [facility] Start: 08-24-2022 DEPRESSION ASSESSMENT DEPRESSION ASS ESSMENT [facility] Start: 07-20-2022 End: 09-19-2022 Comprehensive metabolic 2000 panel - Serum or Plasma COMP METABOLIC PANEL Lab Routine Essential hypertension, benign Mixed hyperlipidemia Elevated glucose Expected: 07/20/2022 (Approximate), Expires: 09/19/2022 [facility] Work Phone: Comment on above: Expected: 07/20/2022 (Approximate), Expires: 09/19/2022 Start: 07-20-2022 End: 09-19-2022 Hemoglobin A1c/Hemoglobin.total in Blood HGB A1C Lab Routine Elevated glucose Expected: 07/20/2022 (Approximate), Expires: 09/19/2022 [facility] Work Phone: Comment on above: Expected: 07/20/2022 (Approximate), Expires: 09/19/2022 Start: 07-20-2022 End: 09-19-2022 Hemoglobin.gastrointest inal.lower [Presence] in Stool by Immunoassay FECAL OCCULT BLOOD TEST Lab Routine Screening for colon cancer Expected: 07/20/2022 (Approximate), Expires: 09/19/2022 [facility] Work Phone: Comment on above: Expected: 07/20/2022 (Approximate), Expires: 09/19/2022 Start: 07-20-2022 End: 09-19-2022 LIPID PANEL BASIC LIPID PANEL BASIC Lab Routine Essential hypertension, benign Mixed hyperlipidemia Expected: 07/20/2022 (Approximate), Expires: 09/19/2022 [facility] Work Phone: Comment on above: Expected: 07/20/2022 (Approximate), Expires: 09/19/2022 Start: 07-20-2022 End: 09-19-2022 Prostate specific Ag [Mass/volume] in Serum or Plasma PSA/PROSTSPECAG DIAG Lab Routine Malignant neoplasm of prostate (HCC) Expected: 07/20/2022 (Approximate), Expires: 09/19/2022 [facility] Work Phone: Comment on above: Expected: 07/20/2022 (Approximate), Expires: 09/19/2022 Start: 04-24-2022 Influenza vaccination INFLUENZA (#1) [facility] Start: 10-18-2021 COVID-19 VACCINE (4 - Booster for Pfizer series) COVID-19 VACCINE (4 - Booster for Pfizer series) [facility] Start: 09-25-2021 Glaucoma screening Dilated Retinal E xam [facility] Start: 08-12-2021 COVID-19 VACCINE (4 - Booster for Pfizer series) COVID-19 VACCINE (4 - Booster for Pfizer series) [facility] Start: 08-12-2021 COVID-19 VACCINE (4 - Pfizer series) COVID-19 VACCINE (4 - Pfizer series) [facility] Start: 03-31-2019 BP CONTROLLED (<130/80) BP CONTROLLE D (<130/80) [facility] Start: 12-10-2016 PNEUMOCOCCAL: 65+ (3 - PPSV23 or PCV20) PNEUMOCOCCAL: 65+ (3 - PPSV23 or PCV20) [facility] Start: 2016 RSV Vaccine (1 - 1-d ose 75+ series) RSV Vaccine (1 - 1-dose 75+ series) [facility] Start: 1991 SHINGRIX VACCINE (1 of 2) SHINGRIX VACCINE (1 of 2) [facility] Start: 1959 Anxiety Screening Anxiety Screening [facility] Start: 1959 Depression Screening Depression Scre ening [facility] Start: 1951 Diabetic foot examination Diabetic Foot Exam [facility] Hemoglobin.gastroint est inal.lower [Presence] in Stool by Immunoassay FECAL OCCULT BLOOD TEST Lab Routine Screening for colon cancer 04/29/2022 7:00 AM EDT [facility] Work Phone: Patient Education ED Laceration, All Closures [facility] Work Phone: Patient referral [facility] Work Phone: [facility] Immunizations Immunization Date Immunization Notes Care Provider Fa marlo 06-15-2023 influenza virus vacc ine, unspecified formulation Bonita Gar [employer].CLINICAL RESEARCH SPECIALIST Work Phone: [facility] 05-24-2022 influenza, seasonal, injectable Bonita Gar [employer].CLINICAL RESEARCH SPECIALIST Work Phone: [facility] Work Phone: 06-17-2021 COVID-19 vaccine, ag e 12+ yr (Virtuata-Cloudy.fr - PURPLE TOP) Reena Robles MD Work Phone: [facility] 06-17-2021 influenza, high dose seasonal, preservative-free Reena Robles MD Work Phone: [facility] 10-13-2020 COVID-19 vaccine, ag e 12+ yr (PFIZER-BIONTECH - PURPLE TOP) Reena Robles MD Work Phone: [facility] 09-22-2020 COVID-19 vaccine, ag e 12+ yr (PFIZER-BIONTECH - PURPLE TOP) Reena Robles MD Work Phone: [facility] 05-15-2020 influenza, high-dose , quadrivalent vaccine (FLUZONE HIGH DOSE QUADRIVALENT) Reean Robles MD Work Phone: [facility] 05-18-2019 AS03 adjuvant Reena mendes MD Work Phone: [facility] 06-09-2017 influenza, high dose seasonal, preservative-free Reena Robles MD Work Phone: [facility] 05-24-2017 influenza nasal, unspecified formulation Reena Robles MD Work Phone: [facility] 07-16-2016 influenza, high dose seasonal, preservative-free Reena Robles MD Work Phone: [facility] 12-11-2015 pneumococcal conjuga te vaccine, 13 valent Reena Robles MD Work Phone: [facility] 06-02-2014 influenza, high dose seasonal, preservative-free Reena Robles MD Work Phone: [facility] 11-01-2013 tetanus toxoid, redu felisa diphtheria toxoid, and acellular pertussis vaccine, adsorbed Reena Robles MD Work Phone: [facility] 11-01-2013 tetanus toxoid, unspecified formulation Reena Robles MD Work Phone: [facility] 06-07-2013 influenza virus vacc ine, unspecified formulation Reena Robles MD Work Phone: [facility] 07-16-2012 influenza virus vacc ine, unspecified formulation Reena Robles MD Work Phone: [facility] 07-23-2011 influenza virus vacc ine, unspecified formulation Reena Robles MD Work Phone: [facility] 06-18-2010 influenza virus vacc ine, unspecified formulation Reena Robles MD Work Phone: [facility] Work Phone: 06-07-2009 influenza nasal, unspecified formulation Reena Robles MD Work Phone: [facility] 06-07-2009 pneumococcal vaccine , unspecified formulation Reena Robles MD Work Phone: [facility] 06-12-2008 influenza virus vacc ine, unspecified formulation Reena Robles MD Work Phone: [facility] 06-10-2007 pneumococcal polysaccharide vaccine, 23 valent Reena Robles MD Work Phone: [facility] Work Phone: 07-07-2006 influenza virus vacc ine, unspecified formulation Reena Robles MD Work Phone: [facility] Work Phone: 07-11-2004 hepatitis A and hepatitis B vaccine Reena oRbles MD Work Phone: [facility] 10-27-2003 tetanus and diphther ia toxoids, adsorbed, preservative free, for adult use (2 Lf of tetanus toxoid and 2 Lf of diphtheria toxoid) Reena Robles MD Work Phone: [facility] 09-24-2003 TD(adult) unspecifie d formulation Reena Robles MD Work Phone: [facility] 08-24-2003 diphtheria and tetan us toxoids, adsorbed for pediatric use Reena Robles MD Work Phone: [facility] Work Phone: Payers Date Payer Category Payer Self-pay 2006 Medicare MEDICARE MEDICAR E A AND B [id number] 2006-Present [phone] [place] [address] Medicare [id number] 2006 Medicare [id number] 2006 Medicare [id number] 2006 Government (not [facility] care or Medicaid) FOR LIFE [id number] 2006 Unknown FOR LIFE [id number] 2006-Present [phone] [address] [place] [address] Indemnity [id number] 2006 Self-pay [id number] 1998 Private Health Insurance [facility] [employer] [id number] 1998-Present [phone] [address] [place] [address] PPO [id number] 1998 Unknown [id number] Unknown [id number] Unknown [id number] Unknown [id number] Social History Date Type Detail Facility Start: 07-16-2012 End: 12-10-2024 Tobacco smoking status NHIS Never smoked tobacco [facility] Start: 07-19-2021 End: 01-17-2025 Alcohol intake Current drinker of alcohol (finding) [facility] Start: 04-26-2020 End: 07-23-2022 History SDOH Alcohol Frequency 5 [facility] Start: 04-26-2020 End: 07-23-2022 History SDOH Alcohol Std Drinks 1 [facility] Start: 04-26-2020 End: 07-23-2022 History SDOH Social Connections Druze 3 [facility] Start: 04-26-2020 End: 07-23-2022 History SDOH Social Connections Membership 2 [facility] Start: 04-26-2020 Education 18 [facility] Start: 1940 Sex Assigned At Not on file [facility] Start: 07-16-2012 End: 07-28-2022 Tobacco use and exposure Smokeless tobacco non-user [facility] Start: 07-23-2022 History SDOH Alcohol Frequency 98 [facility] Start: 07-23-2022 History SDOH Social Connections Get Together 4 [facility] Start: 07-18-2022 End: 07-28-2022 Exposure to SARS-CoV-2 (event) Not sure [facility] Start: 07-29-2020 End: 07-23-2022 History of Social function [facility] Start: 07-29-2020 End: 07-23-2022 Social connection and isolation panel [facility] How often do you att end worship or taoist services? Patient refused [facility] Do you belong to any clubs or organizations such as worship groups, unions, fraternal or athletic groups, or school groups? Yes [facility] Are you now , , , , never or living with a partner? [facility] How often do you hav e 6 or more drinks on 1 occasion? Never [facility] Do you feel stress - tense, restless, nervous, or anxious, or unable to sleep at night because your mind is troubled all the time - these days [OSQ] To some extent [facility] (I/We) worried wheth er (my/our) food would run out before (I/we) got money to buy more. Never true [facility] In the past 12 month s, was there a time when you were not able to pay the mortgage or rent on time? No [facility] Start: 12-10-2024 Sex Male (finding) [facility] Start: 1940 Sex Assigned At Male [facility] How often to you hav e a drink containing alcohol? 4 or more times a week [facility] How many standard dr inks containing alcohol do you have on a typical day? 1 or 2 [facility] Functional Status Date Assessment Result Facility 03-30-2015 Are you deaf, or do you have serious difficulty hearing No 03/30/2015 9:42 AM Arabella Louis RN No [facility] 03-30-2015 Are you blind, or do you have serious difficulty seeing, even when wearing glasses No 03/30/2015 9:42 AM Arabella Louis RN No [facility] 03-30-2015 Do you have serious difficulty walking or climbing stairs No 03/30/2015 9:42 AM Arabella Louis RN No [facility] 03-30-2015 Do you have difficul ty dressing or bathing No 03/30/2015 9:42 AM Arabella Louis RN No [facility] 03-30-2015 Because of a physica l, mental, or emotional condition, do you have difficulty doing errands alone such as visiting a physician's office or shopping No 03/30/2015 9:42 AM Arabella Louis RN No [facility] Mental Status Date Assessment Result Facility 03-30-2015 Because of a physica l, mental, or emotional condition, do you have serious difficulty concentrating, remembering, or making decisions No 03/30/2015 9:42 AM Arabella Louis RN No [facility] Clinical Notes 03-08-2009 to 02-27-2025 Note Date & Type Note Facility 02-27-2025 Evaluation note Diagnosis Onset Date Resolution DALE (obstructive sleep apnea) chronic February 27, 2025 8 :05am [facility] Work Phone: 1(868) 900-109005-27-2025 History of Present illness Narrative* Reena Robels MD - 01/17/2025 10:40 AM EDT Chief Complaint Patient presents with: Diabetes: HPI Luis Fernando Howard is a 84 year old male who presents here today for diabetes concerns. Has an advanced directive. [facility] He follows with [facility] [place]. DM: Taking Metformin ER 500 mg 1 pill daily. [facility]. No neuropathy sx. Nohypoglycemic episodes. Checking BS at home with FBS 140. His last A1c he said was 7.4 which was done at [facility]. No falls. Last fall 12/29/24. Depression/DAVID: stable with Celexa 10 mg daily. Has family support and grand children close, some in [place]. Range in ages of 25 to 13 years old. Past medical history, appointments, medications, allergies reviewed. 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 Other and unspecified hyperlipidemia Previous Surgical History PAST SURGICAL HISTORY Procedure Laterality Date COLONOSCOPY FLX DX W/COLLJ SPEC WHEN PFRMD 09/27/2009 COLSC FLX W/RMVL OF TUMOR POLYP LESION SNARE TQ 10/31/05 PAST SURGICAL HISTORY OF 09/25 brachytherapy, prostate [place] SIGMOIDOSCOPY FLX DX W/COLLJ SPEC BR/WA IF PFRMD Sigmoidoscopy, flexible VITRECTOMY MECHANICAL PARS PLANA left eye- aroung 2016 XCAPSL CTRC RMVL INSJ IO LENS PROSTH W/O ECP 05/2013 done at [facility] left eye Family History FAMILY HISTORY Problem Relation Age of Onset None Other Glaucoma No Family History Macular Degen No Family History Blindness No Family History Detached Retina No Family History Patient Allergies ALLERGIES Allergen Reactions Kleber Inhibitors Mental Status Change Atenolol Other: See Comments Difficulty breathing with activity Current Medications Current Outpatient Medications on File Prior to Visit Medication Sig triamcinolone (KENALOG) 0.025 % cream Apply 1 application to affected area twice daily. citalopram hydrobromide (CELEXA) 10 mg tablet Take by mouth once daily. metFORMIN ER (GLUCOPHAGE XR) 500 mg 24 hr tablet Take 1 tablet by mouth daily with breakfast. losartan (COZAAR) 50 mg tablet Take 2 tablets by mouth once daily. meloxicam (MOBIC) 15 mg tablet Take 1 tablet by mouth once daily. With food. atorvastatin (LIPITOR) 40 mg tablet Take 1 tablet by mouth once daily. Aspirin 81 mg Tab Take 1 tablet by mouth once daily. Take with food. furosemide 20 mg tablet Take 1 tablet by mouth once daily as needed. No current facility-administered medications on file prior to visit. Social History Social History Tobacco Use Smoking status: Never Smokeless tobacco: Never Vaping Use Vaping status: Never Used Substance Use Topics Alcohol use: Yes Comment: wine daily Drug use: No EXAM: BP 110/68 Pulse 68 Resp 14 Wt 78.2 kg (172 lb 6.4 oz) BMI 24.74 kg/m General Appearance: Well appearing, alert, in no acute distress, well-hydrated, well nourished.. Lungs: Lungs clear to auscultation. No wheezing, rhonchi, rales.. Heart: RRR without murmur, gallop, or rubs. No ectopy. Feet: Shoes and socks removed, No deformities, ulcers, calluses, normal distal pulses, and sensitive to 10 gm monofilament . Health Maintenance List Diabetic Foot Exam Never done Shingrix Vaccine(1 of 2) Never done RSV Vaccine(1 - 1-dose 75+ series) Never done DTaP,Tdap,Td Vaccine(5 - Td or Tdap) due on 11/02/2023 Advance Directive Discussion due on 08/24/2024 Covid-19 Vaccine() due on 12/29/2025 HbA1C due on 04/06/2025 Urine Albumin:Creatinine Ratio due on 10/07/2025 LDL Cholesterol due on 10/07/2025 Depression Screening due on 12/29/2025 Anxiety Screening due on 12/29/2025 Dilated Retinal Exam due on 01/10/2026 Influenza Vaccine Completed Pneumococcal Vaccine: 50+ Completed Colorectal Cancer Screening Discontinued Data reviewed None ASSESSMENT/PLAN: 1. Type 2 diabetes mellitus without complication, without long-term current use of insulin (HCC) - ICD9: 250.00, ICD10: E11.9 - Controlled - Continue current medications - Counseled on healthy diet and regular exercise - Discussed need for and benefit of weight loss. BMI 24.74 kg/(m^2) 2. Anxiety with depression - ICD9: 300.4, ICD10: F41.8 Stable Continue current medications. Follow up prn I agree with the Chief Complaint, ROS, and Past Histories independently gathered by the clinical student support advisor and the remaining scribed note accurately describes my personal service to the patient. Medical Decision Making: Problems: Moderate: 2+ stable chronic illnesses Risk: Moderate: Drug management Medical Decision Making Level: 4 - Moderate Reena Robles MD The documentation for this note was completed by Katie Bowman MA acting as scribe for Reena Robles MD. January 17, 2025 10:24 AM. Katie Bowman MA documented [facility] NoteHNO ID: [id number] Author: REENA ROBLES MD Service: ? Author Type: Physician Type: Progress Notes Filed: 01/17/2025 15:02 Note Text: Chief Complaint Patient presents with: Diabetes: HPI Luis Fernando Howard is a 84 year old male who presents here today for diabetes concerns. Has an advanced directive. [facility] He follows with [facility] [place]. DM: Taking Metformin ER 500 mg 1 pill daily. [facility]. No neuropathy sx. No hypoglycemic episodes. Checking BS at home with FBS 140. His last A1c he said was 7.4 which was done at [facility]. No falls. Last fall 12/29/24. Depression/DAVID: stable with Celexa 10 mg daily. Has family support and grand children close, some in [place]. Range in ages of 25 to 13 years old. Past medical history, appointments, medications, allergies reviewed. 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 Other and unspecified hyperlipidemia Previous Surgical History PAST SURGICAL HISTORY Procedure Laterality Date COLONOSCOPY FLX DX W/COLLJ SPEC WHEN PFRMD 09/27/2009 COLSC FLX W/RMVL OF TUMOR POLYP LESION SNARE TQ 10/31/05 PAST SURGICAL HISTORY OF 09/25 brachytherapy, prostate [place] SIGMOIDOSCOPY FLX DX W/COLLJ SPEC BR/WA IF PFRMD Sigmoidoscopy, flexible VITRECTOMY MECHANICAL PARS PLANA left eye- aroung 2017 XCAPSL CTRC RMVL INSJ IO LENS PROSTH W/O ECP 05/2013 done at [facility] left eye Family History FAMILY HISTORY Problem Relation Age of Onset None Other Glaucoma No Family History Macular Degen No Family History Blindness No Family History Detached Retina No Family History Patient Allergies ALLERGIES Allergen Reactions Kleber Inhibitors Mental Status Change Atenolol Other: See Comments Difficulty breathing with activity Current Medications Current Outpatient Medications on File Prior to Visit Medication Sig triamcinolone (KENALOG) 0.025 % cream Apply 1 application to affected area twice daily. citalopram hydrobromide (CELEXA) 10 mg tablet Take by mouth once daily. metFORMIN ER (GLUCOPHAGE XR) 500 mg 24 hr tablet Take 1 tablet by mouth daily with breakfast. losartan (COZAAR) 50 mg tablet Take 2 tablets by mouth once daily. meloxicam (MOBIC) 15 mg tablet Take 1 tablet by mouth once daily. With food. atorvastatin (LIPITOR) 40 mg tablet Take 1 tablet by mouth once daily. Aspirin 81 mg Tab Take 1 tablet by mouth once daily. Take with food. furosemide 20 mg tablet Take 1 tablet by mouth once daily as needed. No current facility-administered medications on file prior to visit. Social History Social History Tobacco Use Smoking status: Never Smokeless tobacco: Never Vaping Use Vaping status: Never Used Substance Use Topics Alcohol use: Yes Comment: wine daily Drug use: No EXAM: BP 110/68 Pulse 68 Resp 14 Wt 78.2 kg (172 lb 6.4 oz) BMI 24.74 kg/m? General Appearance: Well appearing, alert, in no acute distress, well-hydrated, well nourished.. Lungs: Lungs clear to auscultation. No wheezing, rhonchi, rales.. Heart: RRR without murmur, gallop, or rubs. No ectopy. Feet: Shoes and socks removed, No deformities, ulcers, calluses, normal distal pulses, and sensitive to 10 gm monofilament . Health Maintenance List Diabetic Foot Exam Never done Shingrix Vaccine(1 of 2) Never done RSV Vaccine(1 - 1-dose 75+ series) Never done DTaP,Tdap,Td Vaccine(5 - Td or Tdap) due on 11/02/2023 Advance Directive Discussion due on 08/24/2024 Covid-19 Vaccine() due on 12/29/2025 HbA1C due on 04/06/2025 Urine Albumin:Creatinine Ratio due on 10/07/2025 LDL Cholesterol due on 10/07/2025 Depression Screening due on 12/29/2025 Anxiety Screening due on 12/29/2025 Dilated Retinal Exam due on 01/10/2026 Influenza Vaccine Completed Pneumococcal Vaccine: 50+ Completed Colorectal Cancer Screening Discontinued Data reviewed None ASSESSMENT/PLAN: 1. Type 2 diabetes mellitus without complication, without long-term current use of insulin (HCC) - ICD9: 250.00, ICD10: E11.9 - Controlled - Continue current medications - Counseled on healthy diet and regular exercise - Discussed need for and benefit of weight loss. BMI 24.74 kg/(m2) 2. Anxiety with depression - ICD9: 300.4, ICD10: F41.8 Stable Continue current medications. Follow up prn I agree with the Chief Complaint, ROS, and Past Histories independently gathered by the clinical student support advisor and the remaining scribed note accurately describes my personal service to the patient. Medical Decision Making: Problems: Moderate: 2+ stable chronic illnesses Risk: Moderate: Drug management Medical Decision Making Level: 4 - Moderate Reena Robles MD (more content not included)...[facility]05-08-2025 History of Present illness Narrative* Reena Robles MD - 12/29/2024 10:00 AM EDT Chief Complaint Patient presents with: ED Follow-up: [facility]-fall, sutures to the right ear, those are out HPI Luis Fernando Howard is a 84 year old male who presents here today for ER Follow Up.. 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 Pt has not been seen in the office since 07/2022. Pt stated he did hit his right ear, had stitches placed which were removed at . Denies LOC. The ear is healing, tender to touch. Has not had any further falls. Admits he does have balance issues when walking. He stated his fall was due to barrel line operator error, did not back up enough to the bed before sitting. Denies any other cause for the fall. Tetanus was not updated at ER. Had depth perception issue of the right eye. [facility] records from 12/10/24: Narrative: Patient is 84-year-old male with past medical she of hypertension hyperlipidemia. He states that hetypically backs up to the bed and then sits down on it. He states a few hours ago he went to do this but he was not close enough to the bed and therefore fell and cut his right ear on the bedside table. He denies any loss of consciousness history of bleeding disorder or blood thinner use. He states he did not think much of this as he was able to get the bleeding to stop after a few minutes. However he states the bleeding returned and this time he cannot get the area to stop and with concern he may need sutures comes in for evaluation. Medical decision making narrative: Patient arrived to the ER hypertensive but has a past medical history of this and otherwise vitals are stable. He reported a mechanical fall and therefore there is no need for cardiac or syncope workup. We discussed potential need for head and cervical spine CT but patient does not have a headache or neck pain and concern for a skull fracture versus subarachnoid or subdural hemorrhage is low and therefore he does not want this performed. Therefore the ear was sutured as documented below and patient is otherwise safe for discharge The right ear was cleaned with chlorhexidine. It was anesthetized using 5 mL of 2% lidocaine without epinephrine in local fashion. The wound was copiously irrigated with normal saline. Then five 4-0 Ethilon sutures were placed in simple interrupted fashion bring the wound together well with good approximation of the wound edges. Patient tolerated the procedure well without complication Follows with [facility] every 6 months. All his prescriptions are prescribed by providers at [facility]. No bowel, Gi, or urinary issues. DM: taking Metformin xr 500 mg once daily. He had A1c done at [facility] in Sep with result 6.8. He does not check BS much at home. No hypoglycemic issues. No neuropathy in feet. He does not eat bread anymore. Eats salads daily. HTN: Does check BP at home with readings running 140/65. No chest pains, dizziness, or SOB. 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 Lipid: Taking Lipitor 40 mg daily, tolerating well. 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 Tries to watch diet. He does not eat bread anymore. Eats salads daily. Depression/DAVID: Taking Celexa 10 mg daily. No counseling at this time. Was going every 6 months through [facility] but was advised he didn't need to return unless he wanted to. Past medical history, appointments, medications, allergies reviewed. 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 Other and unspecified hyperlipidemia Previous Surgical History PAST SURGICAL HISTORY Procedure Laterality Date COLONOSCOPY FLX DX W/COLLJ SPEC WHEN PFRMD 09/27/2009 COLSC FLX W/RMVL OF TUMOR POLYP LESION SNARE TQ 10/31/05 PAST SURGICAL HISTORY OF 09/25 brachytherapy, prostate [place] SIGMOIDOSCOPY FLX DX W/COLLJ SPEC BR/WA IF PFRMD Sigmoidoscopy, flexible VITRECTOMY MECHANICAL PARS PLANA left eye- aroung 2016 XCAPSL CTRC RMVL INSJ IO LENS PROSTH W/O ECP 05/2013 done at [facility] left eye Family History FAMILY HISTORY Problem Relation Age of Onset None Other Glaucoma No Family History Macular Degen No Family History Blindness No Family History Detached Retina No Family History Patient Allergies ALLERGIES Allergen Reactions Kleber Inhibitors Mental Status Change Atenolol Other: See Comments Difficulty breathing with activity Current Medications Current Outpatient Medications on File Prior to Visit Medication Sig triamcinolone (KENALOG) 0.025 % cream Apply 1 application to affected area twice daily. citalopram hydrobromide (CELEXA) 10 mg tablet Take by mouth once daily. loratadine (CLARITIN) 10 mg tablet Take 10 mg by mouth once daily. metFORMIN ER (GLUCOPHAGE XR) 500 mg 24 hr tablet Take 1 tablet by mouth daily with breakfast. metFORMIN ER (GLUCOPHAGE XR) 500 mg 24 hr tablet Take 1 tablet by mouth daily with breakfast. losartan (COZAAR) 50 mg tablet Take 2 tablets by mouth once daily. meloxicam (MOBIC) 15 mg tablet Take 1 tablet by mouth once daily. With food. atorvastatin (LIPITOR) 40 mg tablet Take 1 tablet by mouth once daily. cholecalciferol, vitamin D3, (VITAMIN D3 ORAL) Take by mouth. Aspirin 81 mg Tab Take 1 tablet by mouth once daily. Take with food. (Patient taking differently: Take 81 mg by mouth as needed. Take with food.) furosemide 20 mg tablet Take 1 tablet by mouth once daily as needed. No current facility-administered medications on file prior to visit. Social History Social History Tobacco Use Smoking status: Never Smokeless tobacco: Never Vaping Use Vaping status: Never Used Substance Use Topics Alcohol use: Yes Comment: wine daily Drug use: No EXAM: BP 140/80 Pulse 62 Resp 16 Wt 80 kg (176 lb 5.9 oz) BMI 25.31 kg/m General Appearance: Well appearing, alert, in no acute distress, well-hydrated, well nourished.. Ears: skin healing, scab still present. Lungs: Lungs clear to auscultation. No wheezing, rhonchi, rales.. Heart: RRR without murmur, gallop, or rubs. No ectopy. Health Maintenance List Depression Screening Never done Anxiety Screening Never done Shingrix Vaccine(1 of 2) Never done RSV Vaccine(1 - 1-dose 75+ series) Never done DTaP,Tdap,Td Vaccine(5 - Td or Tdap) due on 11/02/2023 Advance Directive Discussion due on 08/24/2024 Covid-19 Vaccine( season) due on 12/29/2025 Diabetes Screening due on 10/07/2027 Influenza Vaccine Completed Pneumococcal Vaccine: 50+ Completed Colorectal Cancer Screening Discontinued Data reviewed ER reports Copy of labs from [facility] brought it and added to record. HM updated. ASSESSMENT/PLAN: 1. Fall, initial encounter - ICD9: E888.9, ICD10: W19.XXXA (primary diagnosis) Advised to take time with getting in bed 2. Screening for depression - ICD9: V79.0, ICD10: Z13.31 - DEPRESSION SCREENING 3. Encounter for screening examination for other mental health and behavioral disorders - ICD9: V79.8, ICD10: Z13.39 - ANXIETY SCREENING 4. Laceration of right ear region - ICD9: 872.8, ICD10: S01.311A Healed 5. Mixed hyperlipidemia - ICD9: 272.2, ICD10: E78.2 - Controlled - Continue current medications - Counseled on healthy diet and regular exercise - Discussed need for and benefit of weight loss. BMI 25.31 kg/(m^2) 6. Essential hypertension, benign - ICD9: 401.1, ICD10: I10 - Controlled - Continue current medications - Recommend home blood pressure monitoring, to bring results to next visit - Encouraged sodium restriction, DASH or Mediterranean diet - Recommend regular aerobic exercise - Discussed need for and benefit of weight loss. BMI 25.31 kg/(m^2) 7. Type 2 diabetes mellitus without complication, without long-term current use of insulin (HCC) - ICD9: 250.00, ICD10: E11.9 - Controlled - Continue current medications - Counseled on healthy diet and regular exercise - Discussed need for and benefit of weight loss. BMI 25.31 kg/(m^2) 8. Anxiety with depression - ICD9: 300.4, ICD10: F41.8 Stable Continue current medications. Follow up in 6-12 months. I agree with the Chief Complaint, ROS, and Past Histories independently gathered by the clinical student support advisor and the remaining scribed note accurately describes my personal service to the patient. Medical Decision Making: Problems: Moderate: 2+ stable chronic illnesses Data: Unique test result(s) reviewed: 3+ Risk: Moderate: Drug management Medical Decision Making Level: 4 - Moderate Reena Robles MD The documentation for this note was completed by Katie Bowman MA acting as scribe for Reena Robles MD. December 29, 2024 9:55 AM. Katie Bowman MA documented in this [facility]05-[facility]25 NoteHNO ID: [id number] Author: REENA ROBLES MD Service: ? Author Type: Physician Type: Progress Notes Filed: 12/29/2024 10:19 Note Text: Chief Complaint Patient presents with: ED Follow-up: [facility]-fall, sutures to the right ear, those are out HPI Luis Fernando Howard is a 84 year old male who presents here today for ER Follow Up.. 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 Pt has not been seen in the office since 07/2022. Pt stated he did hit his right ear, had stitches placed which were removed at [facility]. Denies LOC. The ear is healing, tender to touch. Has not had any further falls. Admits he does have balance issues when walking. He stated his fall was due to barrel line operator error, did not back up enough to the bed before sitting. Denies any other cause for the fall. Tetanus was not updated at ER. Had depth perception issue of the right eye. [facility] records from 12/10/24: Narrative: Patient is 84-year-old male with past medical she of hypertension hyperlipidemia. He states that he typically backs up to the bed and then sits down on it. He states a few hours ago he went to do this but he was not close enough to the bed and therefore fell and cut his right ear on the bedside table. He denies any loss of consciousness history of bleeding disorder or blood thinner use. He states he did not think much of this as he was able to get the bleeding to stop after a few minutes. However he states the bleeding returned and this time he cannot get the area to stop and with concern he may need sutures comes in for evaluation. Medical decision making narrative: Patient arrived to the ER hypertensive but has a past medical history of this and otherwise vitals are stable. He reported a mechanical fall and therefore there is no need for cardiac or syncope workup. We discussed potential need for head and cervical spine CT but patient does not have a headache or neck pain and concern for a skull fracture versus subarachnoid or subdural hemorrhage is low and therefore he does not want this performed. Therefore the ear was sutured as documented below and patient is otherwise safe for discharge The right ear was cleaned with chlorhexidine. It was anesthetized using 5 mL of 2% lidocaine without epinephrine in local fashion. The wound was copiously irrigated with normal saline. Then five 4-0 Ethilon sutures were placed in simple interrupted fashion bring the wound together well with good approximation of the wound edges. Patient tolerated the procedure well without complication Follows with [facility] every 6 months. All his prescriptions are prescribed by providers at [facility]. No bowel, Gi, or urinary issues. DM: taking Metformin xr 500 mg once daily. He had A1c done at [facility] in Sep with result 6.8. He does not check BS much at home. No hypoglycemic issues. No neuropathy in feet. He does not eat bread anymore. Eats salads daily. HTN: Does check BP at home with readings running 140/65. No chest pains, dizziness, or SOB. 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 Lipid: Taking Lipitor 40 mg daily, tolerating well. 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 Tries to watch diet. He does not eat bread anymore. Eats salads daily. Depression/DAVID: Taking Celexa 10 mg daily. No counseling at this time. Was going every 6 months through [facility] but was advised he didn't need to return unless he wanted to. Past medical history, appointments, medications, allergies reviewed. 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 Other and unspecified hyperlipidemia Previous Surgical History PAST SURGICAL HISTORY Procedure Laterality Date COLONOSCOPY FLX DX W/COLLJ SPEC WHEN PFRMD 09/27/2009 COLSC FLX W/RMVL OF TUMOR POLYP LESION SNARE TQ 10/31/05 PAST SURGICAL HISTORY OF 09/25 brachytherapy, prostate [facility] SIGMOIDOSCOPY FLX DX W/COLLJ SPEC BR/WA IF PFRMD Sigmoidoscopy, flexible VITRECTOMY MECHANICAL PARS PLANA left eye- aroung 2016 XCAPSL CTRC RMVL INSJ IO LENS PROSTH W/O ECP 05/2013 done at [facility] left eye Family History FAMILY HISTORY Problem Relation Age of Onset None Other Glaucoma No Family History Macular Degen No Family History Blindness No Family History Detached Retina No Family History Patient Allergies ALLERGIES Allergen Reactions Kleber Inhibitors Mental Status Change Atenolol Other: See Comments Difficulty breathing with activity Current Medications Current Outpatient Medications on File Prior to Visit Medication Sig triamcinolone (KENALOG) 0.025 % cream Apply 1 application to affected area twice daily. citalopram hydrobromide (CELEXA) 10 mg tablet Take by mouth once daily. loratadine (CLARITIN) 10 (more content not included)...[facility]04-27-2025 NoteHNO ID: [id number] Author: PAULINE PEREZ APRN.CLINICAL RESEARCH SPECIALIST Service: ? Author Type: Nurse Practitioner Type: Progress Notes Filed: 12/18/2024 13:50 Note Text: [facility] Subjective Luis Fernando Howard is a 84 year old male. Patient presents with: Suture Removal: 4 suture top of RIGHT ear at [facility] 12/10/24 Patient came in with complaints of needing 4 sutures taken out of his ear. Patient had 4 sutures placed 8 days ago at the ER in [place]. Patient denies any complications with healing. The history is provided by the patient. No metalsmith was used. Suture Removal Review of Systems Constitutional: Negative. HENT: Negative. Objective BP 133/73 Pulse 64 Temp 36.4 ?C (97.5 ?F) (Right Tympanic) Resp 16 Wt 79.4 kg (175 lb 0.7 oz) SpO2 98% BMI 25.12 kg/m? Physical Exam Constitutional: Appearance: Normal appearance. HENT: Ears: Comments: 4 sutures removed in the area marked above. They were sewn tightly so calvillo were left in the ear. No bleeding at this time no signs of infection instructed to keep clean dry. Pulmonary: Effort: Pulmonary effort is normal. Neurological: Mental Status: He is alert. 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 citalopram hydrobromide (CELEXA) 10 mg tablet Take by mouth once daily. loratadine (CLARITIN) 10 mg tablet Take 10 mg by mouth once daily. losartan (COZAAR) 50 mg tablet Take 2 tablets by mouth once daily. meloxicam (MOBIC) 15 mg tablet Take 1 tablet by mouth once daily. With food. atorvastatin (LIPITOR) 40 mg tablet Take 1 tablet by mouth once daily. cholecalciferol, vitamin D3, (VITAMIN D3 ORAL) Take by mouth. metFORMIN ER (GLUCOPHAGE XR) 500 mg 24 hr tablet Take 1 tablet by mouth daily with breakfast. metFORMIN ER (GLUCOPHAGE XR) 500 mg 24 hr tablet Take 1 tablet by mouth daily with breakfast. Aspirin 81 mg Tab Take 1 tablet by mouth once daily. Take with food. (Patient taking differently: Take 81 mg by mouth as needed. Take with food.) furosemide 20 mg tablet Take 1 tablet by mouth once daily as needed. FAMILY HISTORY Problem Relation Age of Onset None Other Glaucoma No Family History Macular Degen No Family History Blindness No Family History Detached Retina No Family History Social History Tobacco Use Smoking status: Never Smokeless tobacco: Never Vaping Use Vaping status: Never Used Substance Use Topics Alcohol use: Yes Comment: wine daily Drug use: No {ASSESSMENT/PLAN: 1. Visit for suture removal - ICD9: V58.32, ICD10: Z48.02 Patient tolerated procedure well all 4 sutures removed completely. Pauline Perez APRN.CLINICAL RESEARCH SPECIALIST M[facility]12-[facility] Telephone encounter Note* Telephone Encounter - Tina Buckley RN - 07/28/2024 10:41 AM EST Patient returned call and given provider's message below and patient verbalized understanding. Beverly Buckley RN [facility]12-05-2024 Miscellaneous Notes* Telephone Encounter - Tina Buckley RN - 07/28/2024 10:41 AM EST Patient returned call and given provider's message below and patient verbalized understanding. Beverly Buckley RN * Telephone Encounter - Charlee Hsieh LPN - 07/28/2024 10:32 AM EST TC to pt. LM to call office, ask for triage nurse to get results. Charlee Hsieh LPN * Telephone Encounter - oBnita Gar APRN.PRIYA - 07/28/2024 9:54 AM EST Can you please call the patient and let him know that [facility]. He is past due for a Medicare wellness/follow-up with PCP. I would recommend follow-up in the office in the next 3 to 6 months. At that time if labs are needed they can be ordered. Bonita Gar APRN.CNP documented in this encounterGuernsey [facility]12-[facility]-2024 Telephone encounter Note * Telephone Encounter - Charlee Hsihe LPN - 07/28/2024 10:32 AM EST TC to pt. LM to call office, ask for triage nurse to get results. Charlee Hsieh LPN [facility]12-05-2024 Telephone encounter Note* Telephone Encounter - Bonita Gar APRN.CNP - 07/28/2024 9:54 AM EST Can you please call the patient and let him know that I [facility]. He is past due for a Medicare wellness/follow-up with PCP. I would recommend follow-up in the office in the next 3 to 6 months. At that time if labs are needed they can be ordered. Bonita Gar APRN.CNP [facility]11-22-2024 Telephone encounter Note* Telephone Encounter - Katie Bowman MA - 07/15/2024 8:04 AM EST Jackie shredded. Katie Bowman MA [facility]11-22-2024 Miscellaneous Notes* Telephone Encounter - Katie Bowman MA - 07/15/2024 8:04 AM EST Placard shredded. Katie Bowman MA documented in this encounterGuernsey [facility]11-18-2024 Telephone encounter Note * Telephone Encounter - Katie Bowman MA - 07/11/2024 2:38 PM EST At medical records. Pt notified via [place]. Katie Bowman MA [facility]11-18-2024 Miscellaneous Notes* Telephone Encounter - Katie Bowman MA - 07/11/2024 2:38 PM EST At medical records. Pt notified via [place]. Katie Bowman MA * Telephone Encounter - Glo Ardon MA - 07/11/2024 2:20 PM EST On PCP desk to sign. Glo Ardon MA * Telephone Encounter - Reena Robles MD - 07/11/2024 2:14 PM EST Ok for parking jackie Rx Reena Robles MD * Telephone Encounter - Glo Ardon MA - 07/07/2024 3:20 PM EST Pt requested handicap jackie be written to bean picker tomorrow. Notified pt that PCP is out of the office and unsure if Team will write since he's not been seen in two years (with multiple attempts as of late to schedule an appt). As well as Primary Care never providing one too him and [facility]. Did apologize to pt for this. Glo Ardon MA * Telephone Encounter - Glo Ardon MA - 07/07/2024 2:43 PM EST Pt has been notified he's due for an appt. Have offered him 3 x to schedule, no appt made. Now requesting handicap placard that is [facility]. Do you want to write this nithyaee pt first? See pt message. Glo Ardon MA documented in this encounterGuernsey [facility] Hospital11-18-2024 Telephone encounter Note * Telephone Encounter - Glo Ardon MA - 07/11/2024 2:20 PM EST On PCP desk to sign. Glo Ardon MA [facility]11-18-2024 Telephone encounter Note* Telephone Encounter - Reena Robles MD - 07/11/2024 2:14 PM EST Ok for parking placard Rx Reena Robles MD [facility]11-14-2024 Telephone encounter Note* Telephone Encounter - Glo Ardon MA - 07/07/2024 3:20 PM EST Pt requested handicap placard be written to bean picker tomorrow. Notified pt that PCP is out of the office and unsure if Team will write since he's not been seen in two years (with multiple attempts as of late to schedule an appt). As well as Primary Care never providing one too him and pt [facility]. Did apologize to pt for this. Glo Ardon MA [facility]11-14-2024 Telephone encounter Note* Telephone Encounter - Glo Ardon MA - 07/07/2024 2:43 PM EST Pt has been notified he's due for an appt. Have offered him 3 x to schedule, no appt made. Now requesting handicap placard that is [facility]. Do you want to write this orsee pt first? See pt message. Glo Ardon MA [facility]11-12-2024 Telephone encounter Note* Telephone Encounter - Glo Ardon MA - 07/05/2024 10:38 AM EST Notified pt that an appt is needed first before labs can be ordered. Also made pt aware the labs herequested were just [facility]. Pt made aware that Provider can reviewhis results and decide which labs are then needed for his appt when scheduled. Asked pt what day/time works for him to get scheduled with PCP Team. Glo Ardon MA [facility]11-12-2024 Miscellaneous Notes* Telephone Encounter - Glo Ardon MA - 07/05/2024 10:38 AM EST Notified pt that an appt is needed first before labs can be ordered. Also made pt aware the labs herequested were [facility]. Pt made aware that Provider can reviewhis results and decide which labs are then needed for his appt when scheduled. Asked pt what day/time works for him to get scheduled with PCP Team. Glo Ardon MA documented in this encounterGuernsey [facility] Hospital08-18-2023 Miscellaneous Notes* Telephone Encounter - Miranda Garcia LPCC - 04/10/2023 11:12 AM EDT Behavioral Health Social Work Progress Note Patient identified for [facility] from: PCP Reason for referral: Resources Behavioral Health Resources: Psychology - talk therapy [facility] encounter type: Telephone Encounter, MyChart Message Attempts to Outreach: 1 attempt Referral made: Psychology - External, Psychology - Internal Psychology-Internal referral type: Therapy Psychology-External referral type: Therapy Reason for external referral: Patient choice, Wait times at [facility] too long Final Disposition: Resources given Patient Discharged?: Yes Patient reported that caregiver was able to meet their needs today?: Yes therapist spoke with patient. He states that he is looking for a second opinion regarding his mental health diagnosis. He would prefer to stay near his home. therapist sending list of resourcesto his MyChart. SAL Peterson-S April 10, 2023 documented in this encounterGuernsey [facility]08-03-2023 Miscellaneous Notes* Telephone Encounter - Glo Ardon Ma - 03/26/2023 9:01 AM EDT See pt message and advise. Glo Ardon Ma documented in this encounterGuernsey [facility] Hospital07-17-2023 History of Present illness Narrative* Milton-Valorie Aranda APRN.CLINICAL RESEARCH SPECIALIST - 03/09/2023 1:50 PM EDT Images from the original note were not included. Subjective HPI Luis Fernando Howard is a 82 year old male who presents with an insect bite on his right buttock/hip area. This has been present for 3 days. He is not sure what bit him. 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 He woke up last night with a headache and was sweaty. He took aspirin andfelt better. The area is tender to touch. He has not used any medication on it at home. Review of Systems Constitutional: Positive for diaphoresis and fever. Respiratory: Negative. Cardiovascular: Negative. Musculoskeletal: Negative for myalgias. Skin: Positive for rash. Negative for itching. Neurological: Positive for headaches. BP 130/80 Pulse 75 Temp (!) 38.2 C (100.7 F) Resp 21 Wt 76.7 kg (169 lb 3.2 oz) SpO2 97% BMI 24.28 kg/m . 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 loratadine (CLARITIN) 10 mg tablet Take 10 mg by mouth once daily. metFORMIN ER (GLUCOPHAGE XR) 500 mg 24 hr tablet Take 1 tablet by mouth daily with breakfast. losartan (COZAAR) 50 mg tablet Take 2 tablets by mouth once daily. meloxicam (MOBIC) 15 mg tablet Take 1 tablet by mouth once daily. With food. atorvastatin (LIPITOR) 40 mg tablet Take 1 tablet by mouth once daily. cholecalciferol, vitamin D3, (VITAMIN D3 ORAL) Take by mouth. Aspirin 81 mg Tab Take 1 tablet by mouth once daily. Take with food. (Patient taking differently: Take 81 mg by mouth as needed. Take with food.) furosemide 20 mg tablet Take 1 tablet by mouth once daily as needed. doxycycline hyclate (VIBRAMYCIN) 100 mg capsule Take 1 capsule by mouth twice daily for 10 days. triamcinolone (KENALOG) 0.025 % cream Apply 1 application to affected area twice daily. metFORMIN ER (GLUCOPHAGE XR) 500 mg 24 hr tablet Take 1 tablet by mouth daily with breakfast. FAMILY HISTORY Problem Relation Age of Onset None Other Glaucoma No Family History Macular Degen No Family History Blindness No Family History Detached Retina No Family History Social History Tobacco Use Smoking status: Never Smokeless tobacco: Never Vaping Use Vaping Use: Never used Substance Use Topics Alcohol use: Yes Comment: wine daily Drug use: No Objective Physical Exam Vitals and nursing note reviewed. Constitutional: Appearance: Normal appearance. Cardiovascular: Rate and Rhythm: Normal rate. Pulmonary: Effort: Pulmonary effort is normal. Skin: General: Skin is warm and dry. Findings: Erythema and rash present. Neurological: Mental Status: He is alert. ASSESSMENT/PLAN: 1. Cellulitis of skin - ICD9: 682.9, ICD10: L03.90 (primary diagnosis) - Begin treatment with doxycycline - DOXYCYCLINE HYCLATE 100 MG CAPSULE 2. Insect bite, unspecified site, initial encounter - ICD9: 919.4, E906.4, ICD10: W57.XXXA - TRIAMCINOLONE ACETONIDE 0.025 % TOPICAL CREAM - Follow-up with your PCP in 3-5 days if symptoms have not improved or sooner if symptoms worsen - Discussed red flags and need for immediate medical evaluation if any occur. - Discussed supportive care treatment with fluids, rest and analgesia. - Discussed expected course of illness Valorie Chi APRN.CNP documented in this encounterGuernsey [facility]07-17-2023 Instructions* Patient Instructions* Valorie Chi APRN.CNP - 03/09/2023 1:49 PM EDT ASSESSMENT/PLAN: 1. Cellulitis of skin - ICD9: 682.9, ICD10: L03.90 (primary diagnosis) - Begin treatment with doxycycline - DOXYCYCLINE HYCLATE 100 MG CAPSULE 2. Insect bite, unspecified site, initial encounter - ICD9: 919.4, E906.4, ICD10: W57.XXXA - TRIAMCINOLONE ACETONIDE 0.025 % TOPICAL CREAM - Follow-up with your PCP in 3-5 days if symptoms have not improved or sooner if symptoms worsen - Discussed red flags and need for immediate medical evaluation if any occur. - Discussed supportive care treatment with fluids, rest and analgesia. - Discussed expected course of illness Valorie Chi APRN.CNP Home Care Advice for Insect Bites: ITCHY INSECT BITES: Wash hands frequesntly, keep nails short and clean. Apply baking soda paste, or soak the bite in oatmeal. Witch brady, Carbon and Calendula topically reduces inflamation, itching and promotes healing. Chickweed and lavender are also useful. Apply firm, sharp, direct steady pressure to the bite for 10 seconds. Oral anti-histamine relief may come from a mixture of black pepper, anise and ashley mixed with honey or glycerin. This can be simmered in a tea, and consumed daily. Other conventional over the counter topical treatments include Calamine lotion and 1% hydrocortisone and If the bite remains very itchy after local treatment, a conventional oral histamine, like benadryl, may provide relief. PAINFUL INSECT BITES: Rub the bite for 15-20 minutes with a cotton ball soaked in meat tenderizer solution to relieve [id number] NOT USEAROUND THE EYES. If meat tenderizer is not available, use baking soda and a cotton ball. If none of the above treatments are available, apply an ice cube for 20 minutes and Give acetaminophen for pain relief. Antihistamines WILL NOT HELP ANTIBIOTIC TREATMENT: If the insect bite has a scab on it and the scab looks infected, apply an over the counter antibiotic topical agent 4 times a day. Tea tree oil, witch brady, lavender oil and smith seal have antibacterial properties. A poultice of yellow dock, smith seal, echinacea, plantain and chaparral, will help draw out an infection. Mix the herbs into a thick paste, and cover with a hot wash cloth. Try a poultice of slippery elm mixed with warm water to make a thick paste to draw out infection and soothe the area. Homeopathic treatments include: Ledum and Apis. Conventional topical over the counter antibiotics include, Bactitracin and Polysporin., CAUTION: For spreading infections(redness or red streaks) patient needs to be seen by a medical provider/urgentcare/emergency room. EXPECTED COURSE: Most insect bites itch or hurt for 1-2 days. The swelling may last up to 1 week. CALL BACK IF: 1) Severe pain persists for greater that 2 hours after pain medication. 2) Infected scab does not clear after 48 hours of topical antibiotic treatment. 3) The bite looks infected i.e. redness, red streaks, increased tenderness. GO TO THE EMERGENCY ROOM IF: Patient experiences shortness of breath, or the condition worsens. documented in this encounterGuernsey [facility]03-03-2023 Miscellaneous Notes* Telephone Encounter - Charlee Hsieh LPN - 10/24/2022 8:50 AM EST Patient notified of results, verbalizes understanding of instructions. Charlee Hsieh LPN * Telephone Encounter - Bonita Gar APRN.CNP - 10/24/2022 8:18 AM EST You please call the patient and let him know that I reviewed his lab results. Labs are relatively normal however A1c has gone up from 5.8 to 6.1. This is still considered prediabetes, however diabetes starts at 6.5. I would recommend that he continue to work on lifestyle changes at home, try to increase lean cuts of meat, vegetables, and get some form of exercise. He may consider increasing metformin to 1 tablettwice daily. Please let me know what he prefers. Thank you. Bonita Gar APRN.PRIYA documented in this encounterGuernsey [facility] Hospital12-05-2022 Instructions* Patient Instructions* Bonita Gar APRN.CNP - 07/28/2022 9:09 AM EST Get repeat A1C in 3 months Start metformin 500 mg daily with a meal. Work on decreasing higher carb foods in the diet. Continue to get some form of exercise. Continue to take all medication as prescribed. Fasting labs in 6 months prior to next office visit. Follow up in 6 months or sooner as needed. Kidney: BUN, Creatinine, GFR Liver: AST, ALT documented in this encounterGuernsey [facility] Hospital12-05-2022 History of Present illness Narrative* Bonita Gar APRN.CLINICAL RESEARCH SPECIALIST - 07/28/2022 9:00 AM EST This is a 81 year old male who presents today with: Patient presents with: 6 Month Exam HISTORY OF PRESENT ILLNESS: Luis Fernando Howard is a 81 year old male. Patient presents with: 6 Month Exam Here in the office for 6 month follow up. HTN: Losartan 50 mg daily. History of PVCs. Checking blood pressure at home, 120-130/60-70's. Denies chest pain, palpitations, or dizziness. Lipid: Taking Lipitor 40 mg daily. Watching diet. Exercising 5 times per week, treadmill/ellipitical. Denies any myalgias. DALE: Currently not using a CPAP. Refers he is doing well with sleeping positions. DAVID: Stable, taking Celexa 10 mg. Denies any increased sadness, anxiety, or SI/HI. Chronic Pain: [facility], [facility] 6 [facility]. DDD lumbar. Taking meloxicam 15 mg as needed. Edema: Using Lasix 20 mg as needed. Left Hip Pain: Started about 3 weeks ago. Refers his treadmill broke down and has been using elliptical. Pain has improved. Colonoscopy: Occult stool completed in April was negative. Vaccines: Denies wanting any vaccines at this time. Labs completed prior to visit, A1c 5.8, lipid within normal limit. CMP showed elevated glucose at 122. 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 meloxicam (MOBIC) 15 mg tablet Take 1 tablet by mouth once daily. With food. atorvastatin (LIPITOR) 40 mg tablet Take 1 tablet by mouth once daily. cholecalciferol, vitamin D3, (VITAMIN D3 ORAL) Take by mouth. Aspirin 81 mg Tab Take 1 tablet by mouth once daily. Take with food. furosemide 20 mg tablet Take 1 tablet by mouth once daily as needed. No current facility-administered medications for this visit. FAMILY HISTORY Problem Relation Age of Onset None Other Glaucoma No Family History Macular Degen No Family History Blindness No Family History Detached Retina No Family History Social History Tobacco Use Smoking status: Never Smokeless tobacco: Never Vaping Use Vaping Use: Never used Substance Use Topics Alcohol use: Yes Comment: wine daily Drug use: No REVIEW OF SYSTEMS GENERAL: No weight loss, malaise or fevers/chills HEENT: Negative for frequent or significant headaches, No changes in hearing or vision. NECK: Negative for lumps, goiter, pain and significant neck swelling RESPIRATORY: Negative for cough, hemoptysis, wheezing, dyspnea or shortness of breath CARDIOVASCULAR: Negative for chest pain, leg swelling, orthopnea, or palpitations GI: No nausea, vomiting, or diarrhea/constipation. No hematochezia/melena. No heartburn or reflux symptoms. : No history of dysuria, frequency or incontinence MUSCULOSKELETAL: + Left Hip Pain SKIN: Negative for lesions, rash, and itching ENDOCRINE: Negative for cold or heat intolerance, polyuria, polydipsia and goiter NEURO: No history of headaches, syncope, paralysis, seizures or tremors MOOD: Negative for depression, anxiety, or suicidal ideation. EXAM: BP 154/96 Pulse 70 Resp 16 Wt 78.9 kg (174 lb) SpO2 96% BMI 24.97 kg/m PHYSICAL EXAM: General Appearance: Well appearing, alert, in no acute distress, well-hydrated, well nourished.. Skin: Skin color, texture, turgor normal, no suspicious rashes or lesions. Head: Normocephalic, no masses, lesions, tenderness or abnormalities. Eyes: Anicteric sclera. Pupils are equally round and reactive to light. Extraocular movements are intact. Lungs: Lungs clear to auscultation. No wheezing, rhonchi, rales.. Heart: RRR without murmur, gallop, or rubs. No ectopy. Extremities: No deformities, edema, skin discoloration, clubbing or cyanosis. Good capillary refill. Musculoskeletal: No joint swelling, deformity, or tenderness. Left hip non- tender, full ROM. Peripheral Pulses: Normal, Capillary refill <2secs, strong peripheral pulses, Pulses palpable. Neurologic: Gait normal. Sensation grossly intact. ASSESSMENT/PLAN: 1. Essential hypertension, benign - ICD9: 401.1, ICD10: I10 (primary diagnosis) - fair control - Continue current medication(s) - Recommended regular aerobic exercise. - Recommend home blood pressure monitoring, to bring results in on next visit - Discussed need and benefit for weight loss. - Goal of BP <130/80 2. Mixed hyperlipidemia - ICD9: 272.2, ICD10: E78.2 - good control - Continue current medication. - Encouraged following a low fat, low cholesterol diet. - Repeat labs in 6 months. - LIPID PANEL BASIC 3. Prediabetes - ICD9: 790.29, ICD10: R73.03 - Start metformin, take 1 tab daily. - Decreased processed foods in the diet, continue to get some form of exercise. - Repeat labs in 3 months. - METFORMIN ER 500 MG TABLET,EXTENDED RELEASE 24 HR - HGB A1C - COMP METABOLIC PANEL 4. DALE (obstructive sleep apnea) - ICD9: 327.23, ICD10: G47.33 - Continue supportive treatment at home. 5. Osteoarthritis of spine with radiculopathy, lumbar region - ICD9: 721.3, ICD10: M47.26 - Continue to use Meloxicam as prescribed. - Keep scheduled appointments at [facility]. 6. Bilateral leg edema - ICD9: 782.3, ICD10: R60.0 - Continue to use Lasix as needed. 7. DDD (degenerative disc disease), lumbar - ICD9: 722.52, ICD10: M51.36 Chronic low back pain - Use Meloxicam as prescribed. 8. Left hip pain - ICD9: 719.45, ICD10: M25.552 - Recommend stretching before and after exercise. - Exam WNL. Follow up in 6 months or sooner as needed. Discussed treatment plan and patient voices understanding. Patient's questions answered appropriately. Medications and potential side effects were discussed and patient voices understanding. Bonita Gar APRN.CLINICAL RESEARCH SPECIALIST This note was partially generated using Fanear recognition system. Note was reviewed for accuracy. There may be minor misspellings or grammar miscues with Fanear recognition. documented in this encounter[facility] Miscellaneous Notes* Telephone Encounter - Pepito Friend APRN.CNP - 04/29/2022 10:42 AM EDT Order filed. Pepito Friend APRN.CNP * Telephone Encounter - Glo Ardon Ma - 04/29/2022 10:35 AM EDT Lab called back to office notify us that pt dropped off IFOBT, but there is no current order. Please file pended order so specimen can be processed. Glo Ardon Ma documented in this encounterGuernsey [facility]05-27-2022 History of Present illness Narrative* Reena Robles MD - 01/17/2022 10:40 AM EDT Chief Complaint No chief complaint on file. HPI Luis Fernando Howard is a 81 year old male who presents here today for 6 month follow up. [facility] [place] [facility] Denies any bowel, Gi, or urinary problems. Hx of prostate cancer. Has PSA checked routinely. DALE: Does not use CPAP machine. He just sleeps on his side which helps. DAVID: Stable; stopped celexa because it made him feel worse, sluggish, anxious HTN: No chest pains, dizziness, or SOB. Checking BP at home; will be lower at home - 120-130s.. Taking Losartan 50 mg daily. Hx of PVC. Lipid: Taking lipitor 40 mg daily, tolerates, no myalgia or gi upset. Tries to watch diet and walksa few times a day. Pain: Chronic back pain. Is on disability for this [facility]. Taking Mobic 15 mg daily as needed. Has issues with dizziness. Edema: marv legs; taking Lasix 20 mg prn. Past medical history, appointments, medications, allergies reviewed. 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 Other and unspecified hyperlipidemia Previous Surgical History PAST SURGICAL HISTORY Procedure Laterality Date COLONOS W/REM POLYP SNARE 10/31/05 COLONOSCOP W/ OR W/O BRSH SPEC 09/27/2009 PAST SURGICAL HISTORY OF 09/25 brachytherapy, prostate [place] REMV CATARACT EXTRACAP,INSERT LENS 05/2013 [facility] SIGMOIDOSCOPY FLEX DIAG Sigmoidoscopy, flexible VITRECTOMY,MECHANICAL left eye- aroung 2016 Family History FAMILY HISTORY Problem Relation Age of Onset None Other Glaucoma No Family History Macular Degen No Family History Blindness No Family History Detached Retina No Family History Patient Allergies ALLERGIES Allergen Reactions Kleber Inhibitors Mental Status Change Atenolol Other: See Comments Difficulty breathing with activity Current Medications Current Outpatient Medications on File Prior to Visit Medication Sig losartan (COZAAR) 50 mg tablet Take 2 tablets by mouth once daily. meloxicam (MOBIC) 15 mg tablet Take 1 tablet by mouth once daily. With food. citalopram (CELEXA) 20 mg tablet Take 1 tablet by mouth once daily. atorvastatin (LIPITOR) 40 mg tablet Take 1 tablet by mouth once daily. cholecalciferol, vitamin D3, (VITAMIN D3 ORAL) Take by mouth. Aspirin 81 mg Tab Take 1 tablet by mouth once daily. Take with food. furosemide 20 mg tablet Take 1 tablet by mouth once daily as needed. No current facility-administered medications on file prior to visit. Social History Social History Tobacco Use Smoking status: Never Smoker Smokeless tobacco: Never Used Vaping Use Vaping Use: Never used Substance Use Topics Alcohol use: Yes Comment: wine daily Drug use: No EXAM: There were no vitals taken for this visit. General Appearance: Well appearing, alert, in no acute distress, well-hydrated, well nourished.. Lungs: Lungs clear to auscultation. No wheezing, rhonchi, rales.. Heart: RRR without murmur, gallop, or rubs. No ectopy. Health Maintenance List SHINGRIX VACCINE(1 of 2) Never done BP CONTROLLED (<130/80) due on 03/31/2019 ADVANCE DIRECTIVE DISCUSSION Never done COVID-19 VACCINE(4 - Booster for Pfizer series) due on 10/18/2021 DEPRESSION SCREENING due on 11/05/2021 ANNUAL PCP TEAM CHRONIC DISEASE VISIT due on 07/19/2022 DTAP,TDAP,TD(5 - Td or Tdap) due on 11/02/2023 DIABETES SCREEN due on 01/08/2025 INFLUENZA Completed PNEUMOVAX AGE 65 AND OVER WITH 5YR LOOKBACK Completed MENINGOCOCCAL CONJUGATE Aged Out Data reviewed Appointment on 01/08/2022 Component Date Value Protein, Total 01/08/2022 7.3 Albumin 01/08/2022 4.7 Calcium, Total 01/08/2022 9.5 Bilirubin, Total 01/08/2022 0.7 Alkaline Phosphatase 01/08/2022 64 AST 01/08/2022 21 ALT 01/08/2022 24 Glucose 01/08/2022 121 (A) BUN 01/08/2022 14 Creatinine 01/08/2022 0.87 Sodium 01/08/2022 135 (A) Potassium 01/08/2022 4.4 Chloride 01/08/2022 101 CO2 01/08/2022 24 Anion Gap 01/08/2022 10 Estimated Glomerular Jay* 01/08/2022 87 Cholesterol, Total 01/08/2022 131 Triglyceride 01/08/2022 76 HDL Cholesterol 01/08/2022 44 Non HDL Cholesterol 01/08/2022 87 Fasting Time 01/08/2022 12 VLDL Cholesterol 01/08/2022 15 TC:HDL Ratio 01/08/2022 2.98 LDL Cholesterol 01/08/2022 72 LDL:HDL Ratio 01/08/2022 1.64 Hemoglobin A1C 01/08/2022 5.8 (A) Estimated Average Glucose 01/08/2022 120 ASSESSMENT/PLAN: 1. Essential hypertension, benign - ICD9: 401.1, ICD10: I10 (primary diagnosis) - good control - Continue current medication(s) - Recommended regular aerobic exercise. - Recommend home blood pressure monitoring, to bring results in on next visit - Goal of BP <140/90 - COMP METABOLIC PANEL - LIPID PANEL BASIC 2. Mixed hyperlipidemia - ICD9: 272.2, ICD10: E78.2 - good control - Continue current medication. - COMP METABOLIC PANEL - LIPID PANEL BASIC 3. DALE (obstructive sleep apnea) - ICD9: 327.23, ICD10: G47.33 4. Malignant neoplasm of prostate (HCC) - ICD9: 185, ICD10: C61 - PSA/PROSTSPECAG DIAG 5. Screening for colon cancer - ICD9: V76.51, ICD10: Z12.11 - FECAL OCCULT BLOOD TEST 6. Elevated glucose - ICD9: 790.29, ICD10: R73.09 - COMP METABOLIC PANEL - HGB A1C Follow up in 6 months with labs prior Medical Decision Making: Problems: Moderate: 2+ stable chronic illnesses Data: Unique test result(s) reviewed: 3+ Unique test(s) ordered: 3+ Risk: Moderate: Drug management Medical Decision Making Level: 4 - Moderate Reena Robles MD documented in this encounterGuern[facility]07-16-2009 History of Past illness Narrative* Problem Noted Date Resolved Date Neoplasm of uncertain behavior of skin 9 12/24/2009 Contact dermatitis and other eczema due to plants (except food) 03/25/2007 06/10/2007 PAIN FINGER 12/23/2005 06/10/2007 Benign neoplasm of colon 10/31/2005 011 Internal hemorrhoids without mention of complica tion 10/31/2005 07/23/2011 documented as of this encounter (statuses as of 01/17/2022) [facility] of Past illness Narrative* Problem Noted Date Resolved Date Neoplasm of uncertain behavior of skin 9 12/24/2009 Contact dermatitis and other eczema due to plants (except food) 03/25/2007 06/10/2007 PAIN FINGER 12/23/2005 06/10/2007 Benign neoplasm of colon 10/31/2005 011 Internal hemorrhoids without mention of complica tion 10/31/2005 07/23/2011 documented as of this encounter (statuses as of 04/29/2022) [facility] of Past illness Narrative* Problem Noted Date Resolved Date Neoplasm of uncertain behavior of skin 9 12/24/2009 Contact dermatitis and other eczema due to plants (except food) 03/25/2007 06/10/2007 PAIN FINGER 12/23/2005 06/10/2007 Benign neoplasm of colon 10/31/2005 011 Internal hemorrhoids without mention of complica tion 10/31/2005 07/23/2011 documented as of this encounter (statuses as of 07/28/2022) [address]16-2009 History of Past illness Narrative* Problem Noted Date Resolved Date Neoplasm of uncertain behavior of skin 9 12/24/2009 Contact dermatitis and other eczema due to plants (except food) 03/25/2007 06/10/2007 PAIN FINGER 12/23/2005 06/10/2007 Benign neoplasm of colon 10/31/2005 011 Internal hemorrhoids without mention of complica tion 10/31/2005 07/23/2011 documented as of this encounter (statuses as of 10/24/2022) [address]16-2009 History of Past illness Narrative* Problem Noted Date Diagnosed Date Resolved Date Neoplasm of uncertain behavior of skin 03/08/2009 12/24/2009 Contact dermatitis and other eczema due to plants (except food) 03/25/2007 06/10/2007 PAIN FINGER 12/23/2005 06/10/2007 Benign neoplasm of colon 10/31/2005 Internal hemorrhoids without mention of complication 10/31/2005 07/23/2011 documented as of this encounter (statuses as of 03/10/2023) [place] [address]-16-2009 History of Past illness Narrative* Problem Noted Date Diagnosed Date Resolved Date Neoplasm of uncertain behavior of skin 03/08/2009 12/24/2009 Contact dermatitis and other eczema due to plants (except food) 03/25/2007 06/10/2007 PAIN FINGER 12/23/2005 06/10/2007 Benign neoplasm of colon 10/31/2005 Internal hemorrhoids without mention of complication 10/31/2005 07/23/2011 documented as of this encounter (statuses as of 03/26/2023) [facility] of Past illness Narrative* Problem Noted Date Diagnosed Date Resolved Date Neoplasm of uncertain behavior of skin 03/08/2009 12/24/2009 Contact dermatitis and other eczema due to plants (except food) 03/25/2007 06/10/2007 PAIN FINGER 12/23/2005 06/10/2007 Benign neoplasm of colon 10/31/2005 Internal hemorrhoids without mention of complication 10/31/2005 07/23/2011 documented as of this encounter (statuses as of 04/10/2023) [facility] note* Diagnosis Essential hypertension, benign- Primary Mixed hyperlipidemia DALE (obstructive sleep apnea) Obstructive sleep apnea (adult) (pediatric) Malignant neoplasm of prostate (HCC) Malignant neoplasm of prostate Screening for colon cancer Special screening for malignant neoplasms, colon Elevated glucose Other abnormal glucose documented in this encounter [facility] note* Diagnosis Screening for colon cancer- Primary Special screening for malignant neoplasms, colon documented in this encounter [facility] note* Diagnosis Essential hypertension, benign- Primary Mixed hyperlipidemia Prediabetes Other abnormal glucose DALE (obstructive sleep apnea) Obstructive sleep apnea (adult) (pediatric) Osteoarthritis of spine with radiculopathy, lumbar region Bilateral leg edema Edema DDD (degenerative disc disease), lumbar Degeneration of lumbar or lumbosacral intervertebral disc Left hip pain Pain in joint, pelvic region and thigh documented in this encounter [facility] note* Diagnosis Cellulitis of skin- Primary Cellulitis and abscess of unspecified site Insect bite, unspecified site, initial encounter documented in this encounter [facility] noteNo assessment information availableWOhio State Health System Work Phone: Evaluation note* Diagnosis Fall, initial encounter- Primary Screening for depression Encounter for screening examination for other mental health and behavioral disorders Laceration of right ear region Mixed hyperlipidemia Essential hypertension, benign Type 2 diabetes mellitus without complication, without long-term current use of insulin ([facility]) Anxiety with depression documented in this encounter [facility] note* Diagnosis Type 2 diabetes mellitus without complication, without long-term current use of insulin ([facility])- Primary Anxiety with depression Mixed hyperlipidemia [facility] Additional Instructions Please see your family doctor or return to the ER in 7 to 10 days for suture removalWOhio State Health System Work Phone: Reason for referral (narrative)No reason for referral information availableWOhio State Health System Work Phone: Chief Complaint and Reason for Visit Chief Complaint Admit Date fallDecember 10, 2024 2:4 0am Chief Complaint Admit Date fallDecember 10, 2024 2:4 0am [facility] 8[facility]a m Chief Complaint Admit Date fallDecember 10, 2024 2:4 0am [facility] 27, 2025 8:05a m DALE March 20, 2025 7:54 pm Reason for Visit Admit Date DALE (obstructive sleep apnea) February 27, 2025 8:05am Advance Directives No Advanced Directives Records Found Advance Directive Response Recorded Date/ Time Living Will No December 10, 2024 2:40am Do you have a Healthcare Power of Distributor Of Directories? No December 10, 2024 2:40am Summary Purpose Family History No Family History Records FoundNo Family History Records Found Additional Source Comments Source Comments (unrecognize d section and content) In the event this informatio n is protected by the Federal Confidentiality of Alcohol and Drug Abuse Patient Records regulations: The Federal rules restrict any use of the information to criminally investigate or prosecute any alcohol or drug abuse patient.[facility] HospitalIn the event this information is protected by the Federal Confidentiality of Alcohol and Drug Abuse Patient Records regulations: The Federal rules restrict any use of the information to criminally investigate or prosecute any alcohol or drug abuse patient.[facility] HospitalIn the event this information is protected by the Federal Confidentiality of Alcohol and Drug Abuse Patient Records regulations: The Federal rules restrict any use of the information to criminally investigate or prosecute any alcohol or drug abuse patient.[facility] HospitalIn the event this information is protected by the Federal Confidentiality of Alcohol and Drug Abuse Patient Records regulations: The Federal rules restrict any use of the information to criminally investigate or prosecute any alcohol or drug abuse patient.[facility] HospitalIn the event this information is protected by the Federal Confidentiality of Alcohol and Drug Abuse Patient Records regulations: The Federal rules restrict any use of the information to criminally investigate or prosecute any alcohol or drug abuse patient.[facility] HospitalIn the event this information is protected by the Federal Confidentiality of Alcohol and Drug Abuse Patient Records regulations: The Federal rules restrict any use of the information to criminally investigate or prosecute any alcohol or drug abuse patient.[facility] HospitalIn the event this information is protected by the Federal Confidentiality of Alcohol and Drug Abuse Patient Records regulations: The Federal rules restrict any use of the information to criminally investigate or prosecute any alcohol or drug abuse patient.[facility] HospitalIn the event this information is protected by the Federal Confidentiality of Alcohol and Drug Abuse Patient Records regulations: The Federal rules restrict any use of the information to criminally investigate or prosecute any alcohol or drug abuse patient.[facility] HospitalIn the event this information is protected by the Federal Confidentiality of Alcohol and Drug Abuse Patient Records regulations: The Federal rules restrict any use of the information to criminally investigate or prosecute any alcohol or drug abuse patient.[facility] HospitalIn the event this information is protected by the Federal Confidentiality of Alcohol and Drug Abuse Patient Records regulations: The Federal rules restrict any use of the information to criminally investigate or prosecute any alcohol or drug abuse patient.[facility] HospitalIn the event this information is protected by the Federal Confidentiality of Alcohol and Drug Abuse Patient Records regulations: The Federal rules restrict any use of the information to criminally investigate or prosecute any alcohol or drug abuse patient.[facility] HospitalIn the event this information is protected by the Federal Confidentiality of Alcohol and Drug Abuse Patient Records regulations: The Federal rules restrict any use of the information to criminally investigate or prosecute any alcohol or drug abuse patient.[facility] HospitalIn the event this information is protected by the Federal Confidentiality of Alcohol and Drug Abuse Patient Records regulations: The Federal rules restrict any use of the information to criminally investigate or prosecute any alcohol or drug abuse patient.[facility] Reason for Visit (unrecogniz ed section and content) Reason Comments 6 Month Exam Reason Comments Orders Reason Comments Results Labs Reason Comments Insect Bite Bug bite on right bu ttock x 3 days Reason Comments bh consult Reason Comments Results Reason Comments ED Follow-up [facility]-fall, sutures to the right ear, those are out Reason Comments Diabetes Care Teams (unrecognized sec tion and content) Roll Scale Man Relationship Specialty Start Date End Date Reena Robles MD [address] [place] [address] PCP - General Family Practice 04/10/15 Roll Scale Man Relationship Specialty Start Date End Date Reena Robles MD [address] [place] [address] PCP - General Family Practice 04/10/15 Roll Scale Man Relationship Specialty Start Date End Date Reena Robles MD [address] [place] [address] PCP - General Family Medicine 04/10/15 Roll Scale Man Relationship Specialty Start Date End Date Reena Robles MD [address] [place] [address] PCP - General Family Medicine 04/10/15 Roll Scale Man Relationship Specialty Start Date End Date Reena Robles MD [address] [place] [address] PCP - General Family Medicine 04/10/15 Roll Scale Man Relationship Specialty Start Date End Date Reena Robles MD [address] [place] [address] PCP - General Family Medicine 04/10/15 Roll Scale Man Relationship Specialty Start Date End Date Reena Robles MD [address] [place] [address] PCP - General Family Medicine 04/10/15 Roll Scale Man Relationship Specialty Start Date End Date Reena Robles MD [address] [place] [address] PCP - General Family Medicine 04/10/15 Roll Scale Man Relationship Specialty Start Date End Date Reena Robles MD [address] [place] [address] PCP - General Family Medicine 04/10/15 Roll Scale Man Relationship Specialty Start Date End Date Reena Robles MD [address] [place] [address] PCP - General Family Medicine 04/10/15 Team Status: Active Member Role Status Dates Dr. Reena Robles MD Primary Care Provider Active Team Status: Inactive Member Role Status Dates Dr. Reena Robles MD Primary Care Provider Active Start: December 10, 2024 End: December 10, 2024 Dr. Marek Ponce , Emergency Provider Active Start: December 10, 2024 End: December 10, 2024 Roll Scale Man Relationship Specialty Start Date End Date Reena Robles MD [address] [place] [address] PCP - General Family Medicine 04/10/15 Bonita Gar, [employer].CLINICAL RESEARCH SPECIALIST [address] [place] [address] Financial Sales Associate Family Medicine 07/31/24 Pepito Friend, INSPECT[employer].CLINICAL RESEARCH SPECIALIST [address] [place] [address] Financial Sales Associate [facility] 08/09/24 Roll Scale Man Relationship Specialty Start Date End Date Reena Robles MD [address] [place] [address] PCP - General Family Medicine 04/10/15 Pepito Friend, [employer].CLINICAL RESEARCH SPECIALIST [address] [place] [address] Financial Sales Associate Family Medicine 08/09/24 Team Status: Active Member Role/Relationship Status Dates Dr. Reena Robles MD Primary Care Provider Active Team Status: Inactive Member Role/Relationship Status Dates Dr. Reena Robles MD Primary Care Provider Active Start: December 10, 2024 End: December 10, 2024 Dr. Marek Ponce , Attending Provider Active Start: December 10, 2024 End: December 10, 2024 Dr. Marek Ponce , Emergency Provider Active Start: December 10, 2024 End: December 10, 2024 Team Status: Inactive Member Role/Relationship Status Dates Dr. Reena Robles MD Primary Care Provider Active Start: February 27, 2025 End: February 27, 2025 Dr. Reena Robles MD Referring Provider Active Start: February 27, 2025 End: February 27, 2025 HIEU Goins NP Attending Provider Active Start: February 27, 2025 End: February 27, 2025 Team Status: Inactive Member Role/Relationship Status Dates Dr. Reena Robles MD Primary Care Provider Active Start: March 20, 2025 End: March 20, 2025 HIEU Goins NP Attending Provider Active Start: March 20, 2025 End: March 20, 2025 HIEU Goins NP Referring Provider Active Start: March 20, 2025 End: March 20, 2025 Goals (unrecognized section and content) Goals may be documented in a n alternate sectionGoals may be documented in an alternate sectionGoals may be documented in an alternate section (unrecognized sect ion and content) No Status Records FoundNo Status Records Found INFORMATION SOURCE (unrecogn ized section and content) DATE CREATED AUTHOR 04/06/2025 [facility] DATE CREATED AUTHOR AUTHOR'S ORGANIZ ATION 06/07/2025 [facility] FOR RECORDS PERTAINING TO PATIENTS WHO ARE OR HAVE BEEN ENROLLED IN A CHEMICAL DEPENDENCY/SUBSTANCEABUSE PROGRAM, SOME INFORMATION MAY BE OMITTED. This clinical summary was aggregated from multiple sources. Caution should be exercised in using it in the provision of clinical care. This summary normalizes information from multiple sources, and as a consequence, information in this document may materially change the coding, format and clinical context of patient data. In addition, data may be omitted in some cases. CLINICAL DECISIONS SHOULD BE BASED ON THE PRIMARY CLINICAL RECORDS. [employer] provides no warranty or guarantee of the accuracy or completeness of information in this document.
[2025-08-20 13:48] LABS: AST(SGOT) 56 U/L (<=37); Alanine Aminotransfer ALT/SGPT 47 U/L (<=46); Albumin, Serum 4.1 g/dL (3.4-4.8); Alkaline Phosphatase 56 U/L (40-129); Anion Gap 14 (7-18); BUN 13 mg/dL (4-19); BUN/Creat Ratio 12.3 RATIO (10-20); Calcium,Total 8.8 mg/dL (7.6-11.0); Carbon Dioxide 17.5 mmol/L (20.0-29.0); Chloride 103 mmol/L (96-106); Estimated Creatinine Clearance 28.90 ml/min (50-250); Globulin 2.7 g/dL (2.2-4.2); Glucose 147 mg/dL (70-99); Potassium 4.4 mmol/L (3.5-5.1)
[2025-08-20 14:25] LABS: Mucous, Urine 0 SEEN /hpf (<or=2+)
[2025-08-20 14:26] LABS: Color, Urine Yellow (Yellow); Glucose, Dipstick Normal (Normal); Ketone-Dipstick 5 mg/dl (Negative); Leukocyte Esterase-Dipstick Negative /ul (Negative); Nitrite-Dipstick Negative (Negative); Occult Blood-Urine 50 /ul (Negative); Protein-Dipstick 30 mg/dl (Negative); Specific Gravity, Urine 1.010 (1.002-1.030); Urine Bilirubin Dipstick Negative (Negative)
[2025-08-20 14:34] LABS: Red Blood Cells-Urine 0-5 SEEN /hpf (0-5); Squamous Epithelial Cells - UA 0-5 SEEN /hpf (0-5)
--- NOTE | 2025-08-20 16:14 | HP.PCM.HOS_ITS ---
HPI - General General Date of Admission: 08/20/25 Date of Service: 08/20/25 Chief Complaint: Debility, falls, dark stools. HPI Narrative The patient is an 84 y/o M w/ PMHx: HTN, HLD, Diabetes mellitus type II, Possible CKD stage II per current GFR but no comparison data, Anxiety and Depression, DALE on CPAP, Hx Prostate CA s/p brachytherapy currently remission who presents to the [facility] ED on 08/20/2025 with significant debility, weakness and fall earlier in the day with no loss of consciousness or trauma to the head but landed on his buttock unfortunately too weak to get up prompting EMS call reporting however that he has had recent dark black stools not on any antiplatelet or anticoagulant therapy but having some lumbar discomfort possibly with fall prompting EMS transition to the ED for evaluation. He notes this is been ongoing for just a little less than a week. His has also been sick but she has been improving more than him. Patient in addition complains of generalized body aches and fatigue but no specific dyspnea, abdominal pain, nausea or emesis. He does note congestion, rhinorrhea. Workup in the ED included T1 100.6, heart rate 84, BP 153/69, respiratory rate 22, 95% room air with most recent repeat vitals T99.8, heart rate 86, BP 134/81, respiratory rate 20, 96% on room air, CBC with WBC 6.8, hemoglobin 13.9, platelet 146 with lymphopenia, unremarkable coags, CMP with Comvax hide 17.5, BUN/creatinine 13/1.06, GFR 70, glucose 147, hepatic profile with AST 56 otherwise not marked appearing, urinalysis not marked appearing with no obvious evidence of UTI, lactic acid 3.3 with repeat lactic acid per ED following interventions 1.5, chest x-ray with no acute cardiopulmonary findings, urinalysis with no obvious evidence of infection, CT brain with chronic changes with no acute intracranial findings, CT abdomen and pelvis with no acute intra- abdominal findings, negative stool guaiac, blood culture x 2 pending per ED, urine culture pending per ED, positive influenza A status. [facility] Medical History CKD (chronic kidney disease), stage II DALE (obstructive sleep apnea) Anxiety and depression HLD (hyperlipidemia) Malignant neoplasm of prostate HTN (hypertension) Diverticulosis of colon Home Medications ?Medication ?Instructions ?Recorded ?Last Taken ?Type atorvastatin 40 mg tablet 40 mg PO DAILY 12/07/20 Unkn own History losartan 100 mg tablet 100 mg PO DAILY 12/07/20 Unk nown History citalopram 20 mg tablet 10 mg PO DAILY ANXIETY 02/27 Unknown History metformin 500 mg tablet 500 mg PO DAILY diabetes 03/17 Unknown History CPAP - Continuous Positive Airway 05/19/25 Unknown Hi story Pressure([facility] INFORMATIONAL USE ONLY) Allergy/AdvReac Type Severity Reaction Status Date / Time LINDA Inhibitors AdvReac Mental Verified 08/20/25 12:20 status change atenolol AdvReac Shortness Verified 08/20/25 12:20 of breath Family History adopted adopted (Patient does not know his maternal or paternal family history as he was adopted.) Surgical History H/O vitrectomy H/O sigmoidoscopy H/O cataract removal with insertion of prosthetic lens Hx of brachytherapy Social History household members: spouse Smoking Status: Never smoker alcohol intake: current alcohol intake frequency: 0-2 drinks per day Alcohol type: wine details: Notes 1-occasionally 2 glasses of wine with dinner. substance use type: does not use ROS ROS Narrative Admission Review of Systems: CONSTITUTIONAL: No weight loss, + fever, chills, weakness or fatigue. HEENT: + Congestion, rhinorrhea. Eyes: No visual loss, blurred vision, double vision or yellow sclerae. Ears, Nose, Throat: No hearing loss, sneezing, congestion, runny nose or sore throat. SKIN: No rash or itching, lesions, wounds. CARDIOVASCULAR: No chest pain, chest pressure or chest discomfort, palpitations, edema, orthopnea, syncopal events. RESPIRATORY: + Cough without marked sputum production, wheezing. No shortness of breath despite his other symptoms, no hemoptysis. GASTROINTESTINAL: No anorexia, nausea, vomiting or diarrhea, abdominal pain, melena, BRBPR. GENITOURINARY: No dysuria, frequency, urgency or retention. NEUROLOGICAL: + Debility, frequent falls. No headache, dizziness, syncope, paralysis, ataxia, numbness or tingling in the extremities, focal weakness, change in bowel or bladder control, seizure. MUSCULOSKELETAL: + muscle, back pain, joint pain or stiffness. HEMATOLOGIC: No anemia, bleeding or bruising. LYMPHATICS: No enlarged nodes. No history of splenectomy. PSYCHIATRIC: + History of anxiety and depression. ENDOCRINOLOGIC: No reports of sweating, cold or heat intolerance. No polyuria or polydipsia. ALLERGIES: No history of asthma, hives, eczema or rhinitis. Patient's Goals Of Care . What would you like to achieve or improve as a result of your hospital stay?: i mproved strength, no more falls, resolution of respiratory symptoms. Vital Signs Vital Signs Vital Signs: 08/20/25 12:17 08/20/25 12:21 08/20/25 12:21 Temperature 100.6 F H 100.6 F H Temperature Source Oral Oral Pulse Rate 84 85 Respiratory Rate 22 H 30 H Respiratory Effort Normal Respiratory Pattern Normal Blood Pressure 153/69 H 153/69 H Blood Pressure Mean 97 97 Pulse Ox 95 97 Oxygen Delivery Method Room Air Room Air 08/20/25 12:25 08/20/25 13:21 08/20/25 13:21 Temperature 99.8 F H Temperature Source Oral Pulse Rate 90 86 Respiratory Rate 18 20 H Respiratory Effort Respiratory Pattern Blood Pressure 134/81 H 134/81 H Blood Pressure Mean 98 98 Pulse Ox 98 96 Oxygen Delivery Method Room Air Room Air Room Air 08/20/25 14:16 08/20/25 15:00 08/20/25 16:08 Temperature 98.6 F 97.9 F 98.2 F Temperature Source Oral Oral Oral Pulse Rate 86 82 86 Respiratory Rate 22 H 22 H 20 H Respiratory Effort Respiratory Pattern Blood Pressure 119/71 127/70 H 130/73 H Blood Pressure Mean 87 89 92 Pulse Ox 96 94 97 Oxygen Delivery Method Room Air Room Air Room Air Weight Weight: 85 lb 4.8 oz Body Mass Index (BMI) 12.2 Physical Exam Narrative Physical Examination: General: Awake, alert, oriented x 3 and cooperative, seated upright in ED bed, notes feeling improved since initial ED arrival, eating per ED order. Skin: Normal color, normal turgor, no icterus, no cyanosis except occasional stage ecchymoses, abrasions specially given recent falls. HEENT: AT/NC, EOMI, PERRLA, mildly dry MM, no carotid bruits or JVD noted. Lungs: Mildly diminished, greater bases, mildly increased respiratory rate but no distress, notable expiratory wheezing especially posterior johns, no rales or rhonchi. Heart: Regular rate and rhythm; no gallop, rub audible. Abdomen: Soft, overweight, NTTP, ND, mildly hyperactive BS, no markedly appreciated HSM. Extremities: No cyanosis, no clubbing, no significant distal pitting edema. Neurological: Patient awake, alert, oriented as noted, cognitive function intact; pupils equally reactive to light and accommodation, cranial nerves grossly normal, moving all 4 extremities, no focal deficits, strength moderately to severely globally decreased. Psychiatric: Affect appears fatigued otherwise normal, no acute evidence of depressive or anxiety feelings but does have underlying history. Results Lab / Micro Data 08/20/25 12:30 08/20/25 12:30 Labs: Laboratory Results - last 24 hr 08/20/25 12:30: WBC 6.8, RBC 4.20 L, Hgb 13.9, Hct 39.7 L, MCV 94.5 H, MCH 33.1 H, MCHC 35.0, RDW Std Deviation 46.6 H, RDW Coeff of [place] 13.4, Plt Count 146 L, MPV 10.2, Immature Gran % (Auto) 0.300, Neut % (Auto) 77.3 H, Lymph % (Auto) 8.2 L, [place] % (Auto) 13.5 H, Eos % (Auto) 0.1, Baso % (Auto) 0.6, Absolute Neuts (auto) 5.3, Absolute Lymphs (auto) 0.56 L, Nucleated RBC % 0, PT 14.2, INR 1.1, APTT 27.8, Sodium 135, Potassium 4.4, Chloride 103, Carbon Dioxide 17.5 L, Anion Gap 14, BUN 13, Creatinine 1.06, Estim Creat Clear Calc 28.90 L, Est GFR (MDRD) Non-Af 70, BUN/Creatinine Ratio 12.3, Glucose 147 H, Lactic Acid 3.3 H*, Calcium 8.8, Total Bilirubin 0.49, AST 56 H, ALT 47, Alkaline Phosphatase 56, Total Protein 6.8, Albumin 4.1, Globulin 2.7, Albumin/Globulin Ratio 1.6 08/20/25 14:21: Urine Color Yellow, Urine Clarity Clear, Urine pH 6.0, Ur Specific [place] 1.010, Urine Protein 30 H, Urine Glucose (UA) Normal, Urine Ketones 5 H, Urine Occult Blood 50 H, Urine Nitrite Negative, Urine Bilirubin Negative, Urine Urobilinogen 1 H, Ur Leukocyte Esterase Negative, Urine RBC 0-5 SEEN, Urine WBC 0-5 SEEN, Ur Squamous Epith Cells 0-5 SEEN, Urine Bacteria RARE, Urine Mucus 0 SEEN 08/20/25 15:30: Lactic Acid 1.5 Micro: Microbiology 08/20/25 12:30 Mucosa - Nose SARS-CoV-2, Influenza & RSV (PCR) - Final Influenzae A 08/20/25 12:35 Stool Stool Occult Blood (POLY) - Final Imaging Radiology Impression Chest X-Ray 08/20/25 12:22 IMPRESSION: NO ACUTE FINDINGS. Reading Location: [facility] Abdomen/Pelvis CT 08/20/25 12:48 IMPRESSION: No acute intra-abdominal abnormality. Reading Location: [facility] Brain CT 08/20/25 12:48 IMPRESSION: CHRONIC CHANGES. NO ACUTE FINDINGS. Reading Location: [facility] Assessment & Plan Assessment/Plan (1) Influenza A: PLAN: Plan The patient is an 84 y/o M w/ PMHx: HTN, HLD, Diabetes mellitus type II, Possible CKD stage II per current GFR but no comparison data, Anxiety and Depression, DALE on CPAP, Hx Prostate CA s/p brachytherapy currently remission who presents to the [facility] ED on 08/20/2025 with significant debility, weakness and fall earlier in the day with no loss of consciousness or trauma to the head but landed on his buttock unfortunately too weak to get up prompting EMS call reporting however that he has had recent dark black stools not on any antiplatelet or anticoagulant therapy but having some lumbar discomfort possibly with fall prompting EMS transition to the ED for evaluation. #1. General Malaise, Cough, Fever, General Debility w/ Fall, Adult FTT secondary to Influenza A Viral Syndrome with associated lactic acidosis potentially laded with dehydration, transient hypoxia given his presentation: Will admit to MS, currently not requiring oxygen supplementation but if becomes necessary would initiate and maintain on oxygen with wean as tolerated, given notable wheezing will initiate on IV Solu-Medrol cautiously given #3, will also add ATC DuoNeb therapy, PRN albuterol, given timeline will defer Tamiflu, encourage HOB, IS parameters w/ pending Bld cx x 2 from ED. PT/OT/case management consulted for discharge planning. Once clinically appropriate would plan ambulatory oxygenation assessment prior to discharge. Complicated by #3 as noted. #2. Acute thrombocytopenia, presumed: Admission platelet 146, no comparison but given acute presentation presumed reactive, will continue to closely trend CBC. #3. Questionable black stools, possible GI bleed: Admission hemoglobin 13.9, MCV 94.5, stool guaiac negative however, no comparison, to be cautious however will continue to cycle H&H, allow at least clear liquids until assure Hgb stable then allow ADA following if remains appropriate, maintain on IV PPI and if hemoglobin does change and decline then threshold to involve gastroenterology at that time if appropriate otherwise will de-escalate off PPI. As noted very cautiously using steroids given notable wheezing with #1 presentation. #4. Possible Chronic Kidney Disease Stage II per current GFR trend but uncertain as no comparison labs: Admission BUN/Cr 13/1.06, GFR 70, baseline renal function unknown, repeat BMP in AM to further elucidate chronicity. #5. Diabetes mellitus type II: Hold oral home regimen, maintain on ADA diet, accu checks w/ ISS. #6. Hypertension: Continue home regimen including losartan with hold parameters as needed, PRN hydralazine. #7. Hyperlipidemia: Will continue patient on statin therapy. #8. Anxiety and depression: Will continue patient home citalopram regimen #9. History of prostate cancer: Status post brachytherapy, considered in remission, encourage follow-up with urology as previously arranged. #10. Suspected heavier alcohol intake: Patient reports 1 to 2 glasses of wine each night and inferring from family this is likely a daily episode, will obtain mag and Phos levels to be cautious, discussed what an appropriate alcohol intake would be on a weekly basis and encouraged significant decrease in his intake. #11 DALE: CPAP nightly. #12. DVT prophylaxis: SCDs given concern for possible black stools as noted. #13. CODE status: Patient HCPOA his was present and living will is in place. Discussed CODE status at length including difference between FULL code, DNR-CCA and DNR-CC status. Following discussions about the differences in these status, requested Full Code status. Advanced Care Planning Face to Face Time: 16 minutes. Charges/Coding Visit Charges Inpatient E&M: 14219 Init Hosp L3 Procedures Hospitalists Procedures: 68652 Advncd Care Plan 30 Min
--- OUTSIDE RECORDS SUMMARY | 2025-08-20 16:35 | XMS RPT_ITS | CCD ---
Author Organization [facility] Care Team Providers Care Sewing Machine Bobbin Winder Name Role Phone Reena Robles MD Primary Care Provider Dr. Reena Robles MD Primary Care Provider Dr. Marek Ponce DO Emergency Provider [phone] Reena Robles MD Primary Care Provider Tannhof CHIEF NUCLEAR MEDICINE TECHNOLOGIST.LEAD SOFTWARE ENGINEER, Bonita Unavailable Phuc CHIEF NUCLEAR MEDICINE TECHNOLOGIST.LEAD SOFTWARE ENGINEER, Pepito Unavailable Dr. Marek Ponce DO Attending Provider Dr. Reena Robles MD Referring Provider Hao FLORICULTURE PROFESSOR-C, Gabriela Attending Provider Hao FLORICULTURE PROFESSOR-C, Garbiela Referring Provider Reena Robles Referring Unavailable Gabriela Bui NP Attending Unavailable Reena Robles Primary Care Unavailable Hao FLORICULTURE PROFESSOR, Gabriela Attending Unavailable Hao FLORICULTURE PROFESSOR, Gabriela Referring Unavailable Reena Robles Primary Care [...] INHIBITORS] Drug Allergy 2 Mental Status Change [facility] (17 sources) Atenolol; Translations: [ATENOLOL] Drug Allergy 6 Other: See Comments [facility] (12 sources) Angiotensin-con verting enzyme inhibitor agent Drug Allergy 2 Mental Status Change [facility] (3 sources) Angiotensin Converting Enzyme (Kleber) Inhibitors Propensity to adverse reactions 5 Mental status change [facility] (1 source) Angiotensin Converting Enzyme (Kleber) Inhibitors Drug allergy (disorder) 5 [facility] Repository (1 source) Atenolol Drug Allergy 5 [facility] Repository Medications Current Medications Medication Drug Class(es) [...] on above: Take 1 capsule by mo [facility] twice daily for 10 days. losartan [...] on above: Take 2 tablets by mo [facility] once daily. meloxicam 15 mg oral [...] Start: 12-07-2020 take 1 capsule by mo [facility] once daily Cholecalciferol (Vitamin D3) 100 [...] Interpretation Reference Range Facil mart Han 06-05-2025 [facility] Telephone ([facility]) LUIS FERNANDO HOWARD ([id number]) 1940 M Date Time Provider Department 06/05/25 REENA ROBLES [facility] During your visit today, we recorded the [...] and they are requesting records. Route to [place] when form completed for processing Reena Robles [...] Reason for Visit: record release form from [facility] [Other] Prescriptions as of 06/05/2025 - triamcinolone [...] as of 07/19/2021: Receives all meds through [facility]. Problem List As Of Date 06/05/2025 Noted [...] Status:Closed by KATIE BOWMAN on 06/05/25 Normal [facility] Pulmonary Visit Reporton Pulmonary Visit Report [facility] Pulmonary Medicine of [address] [place] [address] OFFICE VISIT Date of Service: 02/27/25 MR#: [id number] Acct: [id number] Name: LUIS FERNANDO HOWARD Rep #: [id number] : 1940 Provider: HIEU Bui Age/Sex: 84/M [place] [facility] Status: Signed Assessment and Plan Assessment and Plan (1) DALE (obstructive sleep apnea): Status: Chronic Plan: Deteriorated. The patient was previously prescribed PAP therapy through the [facility] with a fullface mask. The patient [...] Additional Comments: This note was generated with A Fourth Act dictation software. It may contain incorrect words, spelling, and punctuation that were not noted in checking the note before signing. Follow Up: 10 Weeks HPI DALE- [facility] Chief Complaint: Obstructive sleep apnea [...] lifelong never smoker. [facility] He was previously diagnosed with obstructive sleep apnea by the [facility] and prescribed PAP therapy with a [...] the past year?: No PFSH Medical History (Reviewed 02/27/25 @ 08:28 by Gabriela Bui FLORICULTURE PROFESSOR, FLORICULTURE PROFESSOR-C) HLD (hyperlipidemia) Malignant neoplasm of prostate HTN (hypertension) Diverticulosis of colon Surgical History (Reviewed 02/27/25 @ 08:28 by Gabriela Bui FLORICULTURE PROFESSOR, FLORICULTURE PROFESSOR-C) H/O vitrectomy H/O sigmoidoscopy H/O cataract removal with insertion of prosthetic lens Hx of brachytherapy Social History (Reviewed 02/27/25 @ 08:28 by Gabriela Bui FLORICULTURE PROFESSOR, FLORICULTURE PROFESSOR-C) Smoking Status: Never smoker alcohol intake: current alcohol intake frequency: 0-2 drinks per day Questionnaire [place] Sleepiness Scale [place] Sleepiness Scale Sitting and readin = Mod (more content not included)... Normal [facility] 01-17-2025 [facility] Office Visit ([facility]) LUIS FERNANDO HOWARD ([id number]) 1940 M Date Time Provider Department 01/17/25 [...] and care. He follows with Optometry at [facility]. DM: Taking Metformin ER 500 mg 1 pill daily. [facility]. No neuropathy sx. No hypoglycemic episodes. Checking BS at home with FBS 140. His last A1c he said was 7.4 which was done at [facility]. No falls. Last fall 12/29/24. Depression/DAVID: stable with Celexa 10 mg daily. Has family support and grand children close, some in [place]. Range in ages of 25 to 13 [...] LENS PROSTH W/O ECP 05/2013 done at [facility] left eye Family History FAMILY HISTORY Problem [...] support s (more content not included)... Normal [facility] CNOVon 12-29-2024 CNOV Office Visit ([facility]) LUIS FERNANDO HOWARD ([id number]) 1940 M Date Time Provider Department 12/29/24 10:00 AM [facility] During your visit today, we recorded the following information about you: Pulse Respiration Blood pressure Weight 62/minute 16/minute 140/80 80 kg Reena Robles MD 12/29/2024 10:19 AM Signed Chief Complaint Patient presents with: ED Follow-up: [facility]-fall, sutures to the right ear, those are out HPI Luis Fernando Howard is a 84 year old male who presents here today for ER Follow Up.. Grandson going to [place] for biomedical engineering; runner Pt here today for a [facility] ED follow up from 12/10/24. Pt has not been seen in the office since 07/2022. Pt stated he did hit his right ear, had stitches placed which were removed at . Denies LOC. The ear is healing, tender to touch. Has not had any further falls. Admits he does have balance issues when walking. He stated his fall was due to auger operator error, did not back up enough to the bed before sitting. Denies any other cause for the fall. Tetanus was not updated at ER. Had depth perception issue of the right eye. [facility] records from 12/10/24: Narrative: Patient [...] the procedure well without complication Follows with [facility] every 6 months. All his prescriptions are prescribed by providers at [facility]. No bowel, Gi, or urinary issues. DM: taking Metformin xr 500 mg once daily. He had A1c done at [facility] in Sep with result 6.8. He does not check BS much at home. No hypoglycemic issues. No neuropathy in feet. He does not eat bread anymore. Eats salads daily. HTN: Does check BP at home with readings running 140/65. No chest pains, dizziness, or SOB. No haz tech. Lipid: Taking Lipitor 40 mg daily, tolerating well. 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 Tries to watch diet. He does not eat bread anymore. Eats salads daily. Depression/DAVID: Taking Celexa 10 mg daily. No counseling at this time. Was going every 6 months through [facility] but was advised he didn't need to [...] activity Curre (more content not included)... Normal [facility] Lower GI hemoglobin IA Ql (S tl)on 12-19-2024 FECAL OCCULT BLOOD Negative [facility] CNOVon 12-18-2024 CNOV Office Visit (WSTR) LUIS FERNANDO HOWARD ([id number]) 1940 M Date Time Provider Department 12/18/24 1:30 PM PAULINE PEREZ [facility] During your visit today, we recorded the following information about you: Temperature Pulse Respiration Blood pressure 97.5 degrees 64/minute 16/minute 133/73 Weight 79.4 kg Pauline Perez APRN.LEAD SOFTWARE ENGINEER 12/18/2024 1:50 PM Signed [facility] Subjective Luis Fernando Howard is a 84 year old male. Patient presents with: Suture Removal: 4 suture top of RIGHT ear at [facility] 12/10/24 Patient came in with complaints of needing 4 sutures taken out of his ear. Patient had 4 sutures placed 8 days ago at the ER in [place]. Patient denies any complications with healing. The history is provided by the patient. No floral designer was used. Suture Removal Review of Systems [...] LENS PROSTH W/O ECP 05/2013 done at [facility] left eye ALLERGIES Kleber Inhibitors and Atenolol [...] all 4 sutures removed completely. Pauline Perez APRN.[facility] Procedures Allergies As of Date: 12/18/2024 Noted Allergy Reaction KLEBER INHIBITORS 12/10/2011 1 - Mental Status Change ATENOLOL 09/14/2015 14 - Other: See Comments Comments: Difficulty breathing with activity Date Reviewed: 12/18/2024 Reviewed by: Camelia Monroy MA - Fully Assessed Reason for Visit: Suture Removal [105] Cmt: 4 suture top of RIGHT ear at [facility] 12/10/24 Primary Visit Diagnosis:Visit for [...] D3 ORAL) (more content not included)... Normal [facility] Emergency Department Summary on 12-10-2024 Emergency Department Summary [facility] Medical Records Department [address] [place] [address] Emergency Department Summary 12/10/24 MR#: [id number] Acct: [id number] Name: LUIS FERNANDO HOWARD Rep #: [id number] : 1940 84 From: Marek Ponce DO [...] may need sutures comes in for evaluation. [facility] Medical History (Updated 12/11/24 @ 16:26 [...] We discuss (more content not included)... Normal [facility] CBCDIF (EXTERNAL)on 10-07-19 BASO ABS 0.1 K/uL 0 - 0.2 K/uL [facility] Basophils/100 WBC (Bld) 0.9 % 0 - 1.5 % [facility] EOS ABS 0.2 K/uL 0.1 - 0.3 K/uL [facility] Eosinophils/100 WBC (Bld) 4 % Abnormal 1 - 3 % [facility] Hematocrit (Bld) [Volume fraction] 45.5 % 39 - 55 % [facility] Hemoglobin (Bld) [Mass/Vol] 15.6 g/dL 14 - 16.5 g/dL [facility] Lymphocytes (Bld) [#/Vol] 2 10*3/uL 1.2 - 4 K/uL [facility] Lymphocytes/100 WBC (Bld) 34.7 % Abnormal 20 - 30 % [facility] MCH (RBC) [Entitic mass] 34 pg 25.4 - 34.6 pg [facility] MCHC (RBC) [Mass/Vol] 34.3 g/dL 30 - 36 g/dL [facility] MCV (RBC) [Entitic vol] 99.2 fL Abnormal 79 - 98 fL [facility] MONO ABS 0.6 K/uL 0 - 1 K/uL [facility] Monocytes/100 WBC (Bld) 11.3 % Abnormal 2 - 8 % [facility] NEUT ABS 2.8 K/uL 1.9 - 8 K/uL [facility] Neutrophils/100 WBC (Bld) 49.1 % 40 - 74 % [facility] Platelet mean volume (Bld) [Entitic vol] 9.3 fL 7.4 - 10.4 fL [facility] Platelets (Bld) [#/Vol] 211 10*3/uL 140 - 440 K/uL [facility] RBC (Bld) [#/Vol] 4.59 10*6/uL [facility] RDW 13.4 K/uL Abnormal 140 - 440 K/uL [facility] WBC (Bld) [#/Vol] 5.6 10*3/uL 3.9 - 11 K/uL [facility] CMP (EXTERNAL)on 10-07-2024 Albumin [Mass/Vol] 4.2 g/dL [facility] Alk Phos Total 63 U/L 45 - 117 U/L [facility] ALT [Catalytic activity/Vol] 54 U/L 12 - 78 U/L [facility] AST [Catalytic activity/Vol] 33 U/L 8 - 37 U/L [facility] Bili Total 0.9 mg/dL 0.2 - 1 mg/dL [facility] Calcium [Mass/Vol] 9.4 mg/dL 8.5 - 10. 1 mg/dL [facility] Chloride [Moles/Vol] 104 mmol/L [facility] CO2 [Moles/Vol] 25 mmol/L [facility] Creatinine [Mass/Vol] 1 mg/dL [facility] GFR 75 mL/MIN [facility] GFR AFR AMER [facility] Glucose [Mass/Vol] 148 mg/dL Abnormal [facility] Potassium [Moles/Vol] 4.2 mmol/L 3.5 - 5.1 mmol/L [facility] Protein [Mass/Vol] 6.9 g/dL [facility] Sodium [Moles/Vol] 136 mmol/L 136 - 145 mmol/L [facility] Urea nitrogen [Mass/Vol] 15 mg/dL [facility] HBA1C (OUTSIDE)on 10-07-2024 HbA1c (Bld) [Mass fraction] 6.8 % [facility] LIPID PANEL (EXTERNAL)on Cholesterol [Mass/Vol] 144 mg/dL [facility] Cholesterol in HDL [Mass/Vol] 39 mg/dL [facility] Cholesterol in LDL [Mass/Vol] 85 mg/dL [facility] Non-HDL Cholesterol [facility] TC:HDL Ratio [facility] Triglyceride [Mass/Vol] 146 mg/dL [facility] No Panel Informationon 10-07 Interpretation and review of laboratory results Abnormal [facility] TSH (EXTERNAL)on 10-07-2024 TSH Qn 1.574 m[IU]/L [facility] CNPNon 07-28-2024 CNPN Telephone ([facility]) LUIS FERNANDO HOWARD ([id number]) 1940 M Date Time Provider Department 07/28/24 [...] needed they can be ordered. Bonita Gar APRN.Charlee Moses LPN 07/28/2024 10:32 AM [...] Status:Closed by TINA BUCKLEY on 07/28/24 Normal [facility] CBC W/DIFF/PLT (EXTERNAL LAB GT)on 04-05-2024 BASO ABSOLUTE 0.1 [facility] Basophils/100 WBC (Bld) 1.0 % 0.0 - 3.0 % [facility] EOS ABSOLUTE 0.2 [facility] Eosinophils/100 WBC (Bld) 4.6 % Abnormal 0.0 - 3.0 % [facility] Erythrocyte distribution width (RBC) [Ratio] 13.8 % 12.3 - 15.4 % [facility] Hematocrit (Bld) [Volume fraction] 45.6 % 37.5 - 51.0 % [facility] Hemoglobin (Bld) [Mass/Vol] 15.4 g/dL 12.6 - 17.7 g/dL [facility] Lymphocytes/100 WBC (Bld) 36.1 % 21.0 - 51.0 % [facility] LYMPHS ABSOLUTE 1.9 [facility] MCH 33.5 Pg Abnormal 26.6 - 33 Pg [facility] MCHC (RBC) [Mass/Vol] 33.7 g/dL 31.5 - 35.7 g/dL [facility] MCV (RBC) [Entitic vol] 99.4 fL Abnormal 79 - 97 fL [facility] MONOCYTES ABSOLUTE 0.6 [facility] Monocytes/100 WBC (Bld) 10.6 % Abnormal 4.0 - 8.0 % [facility] NEUTROPHILS ABSOLUTE 2.5 [facility] Neutrophils/100 WBC (Bld) 47.7 % Abnormal 54.0 - 78.0 % [facility] NRBC 0.1 /100 WBC [facility] Platelet mean volume (Bld) [Entitic vol] 9.0 fL 7.4 - 10.4 fL [facility] Platelets (Bld) [#/Vol] 198 10*3/uL [facility] RBC (Bld) [#/Vol] 4.58 10*6/uL [facility] WBC (Bld) [#/Vol] 5.3 10*3/uL 3.4 - 10.8 K/uL [facility] CMP (EXTERNAL)on 04-05-2024 Albumin [Mass/Vol] 4.4 g/dL [facility] Alk Phos Total 64 U/L 45 - 117 U/L [facility] ALT [Catalytic activity/Vol] 40 U/L 12 - 78 U/L [facility] Anion gap [Moles/Vol] 11.6 mmol/L 10 - 20 [facility] AST [Catalytic activity/Vol] 30 U/L 8 - 37 U/L [facility] Bili Total 1.0 mg/dL 0.2 - 1 mg/dL [facility] Calcium [Mass/Vol] 9.3 mg/dL 8.5 - 10. 1 mg/dL [facility] Chloride [Moles/Vol] 104 mmol/L [facility] CO2 [Moles/Vol] 24 mmol/L [facility] Creatinine [Mass/Vol] 1.0 mg/dL [facility] GFR 75.0 mL/MIN [facility] Glucose [Mass/Vol] 134 mg/dL Abnormal [facility] Potassium [Moles/Vol] 4.6 mmol/L 3.5 - 5.1 mmol/L [facility] Protein [Mass/Vol] 7.0 g/dL [facility] Sodium [Moles/Vol] 135 mmol/L Abnormal 136 - 145 mmol/L [facility] Urea nitrogen [Mass/Vol] 13 mg/dL [facility] FREE T4on 04-05-2024 Free T4 [Mass/Vol] 0.87 ng/dL 0.83 - 1. 60 ng/dL [facility] Comment on above: [facility] HbA1c (Bld)on 04-05-2024 HbA1c (Bld) [Mass fraction] 6.3 % Abnormal 4.8 - 5.9 % [facility] Comment on above: [facility] LIPID PANEL (EXTERNAL)on Cholesterol [Mass/Vol] 132 mg/dL [facility] HDC-L 43 mg/dL 39 mg/dL [facility] LDL Chol, calculated 82 [facility] Triglyceride [Mass/Vol] 131 mg/dL - 149 mg/dL [facility] No Panel Informationon 04-05 Interpretation and review of laboratory results Abnormal [facility] TSH (EXTERNAL)on 04-05-2024 TSH Qn 1.559 m[IU]/L [facility] Comment on above: [facility] VITAMIN D 25 HYDROXY ([facility],AV, EU,FV,HL,ZULEIMA,MM,SP)on 04-05-2024 Vitamin D 25 Hydroxy 32.30 ng/mL 30 - 75 ng/mL [facility] Comment on above: [facility] Vital Signs Date Time Vital Sign Value Performing Clinician Facility 02-27-2025 08:12-0400 Body height 177.[address] Reena Robles MD Work Phone: [facility] 02-27-2025 08:12-0400 Body mass index (BMI) [Ratio] 24.5 kg/m2 Dr. Reena Robles MD Work Phone: [facility] 02-27-2025 08:12-0400 Body temperature 97.4 [degF] Dr. Reena Robles MD Work Phone: [phone] [place] [address] 02-27-2025 08:12-0400 Body weight 77.[address] Reena Robles MD Work Phone: [phone] [place] [address] 02-27-2025 08:12-0400 Diastolic blood pressure 84 mm[Hg] Dr. Reena Robles MD Work Phone: [phone] [place] [address] 02-27-2025 08:12-0400 Heart rate 71 /min Dr. Reena Robles MD Work Phone: [phone] [place] [address] 02-27-2025 08:12-0400 Respiratory rate 16 /min Dr. Reena Robles MD Work Phone: [phone] [place] [address] 02-27-2025 08:12-0400 SaO2% (BldA) [Mass fraction] 96 % Dr. Reena Robles MD Work Phone: [facility] 02-27-2025 08:12-0400 Systolic blood pressure 157 mm[Hg] Dr. Reena Robles MD Work Phone: [facility] 01-17-2025 10:29-0400 Body mass index (BMI) [Ratio] 24.74 kg/m2 Reena Robles MD Work Phone: [facility] 01-17-2025 10:29-0400 Body weight 78.2 kg Reena Robles MD Work Phone: [facility] 01-17-2025 10:29-0400 Diastolic blood pressure 68 mm[Hg] Reena Robles MD Work Phone: [facility] 01-17-2025 10:29-0400 Heart rate 68 /min Reena Robles MD Work Phone: [facility] 01-17-2025 10:29-0400 Respiratory rate 14 /min Reena Robles MD Work Phone: [facility] 01-17-2025 10:29-0400 Systolic blood pressure 110 mm[Hg] Reena Robles MD Work Phone: [facility] 12-29-2024 09:52-0400 Body mass index (BMI) [Ratio] 25.31 kg/m2 Reena Robles MD Work Phone: [facility] 12-29-2024 09:52-0400 Body weight 80 kg Reena Robles MD Work Phone: [facility] 12-29-2024 09:52-0400 Diastolic blood pressure 80 mm[Hg] Reena Robles MD Work Phone: [facility] 12-29-2024 09:52-0400 Heart rate 62 /min Reena Robles MD Work Phone: [facility] 12-29-2024 09:52-0400 Respiratory rate 16 /min Reena Robles MD Work Phone: [facility] 12-29-2024 09:52-0400 Systolic blood pressure 140 mm[Hg] Reena Robles MD Work Phone: [facility] 12-10-2024 04:19-0400 Body temperature 97.8 [degF] Dr. Reena Robles MD Work Phone: [facility] 12-10-2024 04:19-0400 Diastolic blood pressure 72 mm[Hg] Dr. Reena Robles MD Work Phone: [facility] 12-10-2024 04:19-0400 Heart rate 68 /min Dr. Reena Robles MD Work Phone: [facility] 12-10-2024 04:19-0400 Respiratory rate 16 /min Dr. Reena Robles MD Work Phone: [facility] 12-10-2024 04:19-0400 SaO2% (BldA) [Mass fraction] 99 % Dr. Reena Robles MD Work Phone: [facility] 12-10-2024 04:19-0400 Systolic blood pressure 134 mm[Hg] Dr. Reena Robles MD Work Phone: [facility] 12-10-2024 02:40-0400 Body height 177.[address] Reena Robles MD Work Phone: [facility] 12-10-2024 02:40-0400 Body mass index (BMI) [Ratio] 25.3 kg/m2 Dr. Reena Robles MD Work Phone: [facility] 12-10-2024 02:40-0400 Body weight 80.[address] Reena Robles MD Work Phone: [facility] 03-09-2023 13:39-0400 Body temperature 100.71 [degF] Valorie Praisler-Wood CHIEF NUCLEAR MEDICINE TECHNOLOGIST.LEAD SOFTWARE ENGINEER Work Phone: [facility] 03-09-2023 13:39-0400 Body weight 76.75 kg Valorie Praisler-Wood CHIEF NUCLEAR MEDICINE TECHNOLOGIST.LEAD SOFTWARE ENGINEER Work Phone: [facility] 03-09-2023 13:39-0400 Diastolic blood pressure 80 mm[Hg] Valorie Praisler-Wood CHIEF NUCLEAR MEDICINE TECHNOLOGIST.LEAD SOFTWARE ENGINEER Work Phone: [facility] 03-09-2023 13:39-0400 Heart rate 75 /min Valorie Praisler-Wood CHIEF NUCLEAR MEDICINE TECHNOLOGIST.LEAD SOFTWARE ENGINEER Work Phone: [facility] 03-09-2023 13:39-0400 Respiratory rate 21 /min Valorie Praisler-Wood CHIEF NUCLEAR MEDICINE TECHNOLOGIST.LEAD SOFTWARE ENGINEER Work Phone: [facility] 03-09-2023 13:39-0400 SaO2% (BldA) [Mass fraction] 97 % Valorie Praisler-Wood CHIEF NUCLEAR MEDICINE TECHNOLOGIST.LEAD SOFTWARE ENGINEER Work Phone: [facility] 03-09-2023 13:39-0400 Systolic blood pressure 130 mm[Hg] Valorie Praisler-Wood CHIEF NUCLEAR MEDICINE TECHNOLOGIST.LEAD SOFTWARE ENGINEER Work Phone: [facility] 07-28-2022 08:50-0500 Body weight 78.93 kg Bonita Kunzhof CHIEF NUCLEAR MEDICINE TECHNOLOGIST.LEAD SOFTWARE ENGINEER Work Phone: [facility] 07-28-2022 08:50-0500 Diastolic blood pressure 96 mm[Hg] Bonita Kunzhof CHIEF NUCLEAR MEDICINE TECHNOLOGIST.LEAD SOFTWARE ENGINEER Work Phone: [facility] 07-28-2022 08:50-0500 Heart rate 70 /min Bonita Kunzhof CHIEF NUCLEAR MEDICINE TECHNOLOGIST.LEAD SOFTWARE ENGINEER Work Phone: [facility] 07-28-2022 08:50-0500 Respiratory rate 16 /min Bonita Kunzhof CHIEF NUCLEAR MEDICINE TECHNOLOGIST.LEAD SOFTWARE ENGINEER Work Phone: [facility] 07-28-2022 08:50-0500 SaO2% (BldA) [Mass fraction] 96 % Bonita Kunzhof CHIEF NUCLEAR MEDICINE TECHNOLOGIST.LEAD SOFTWARE ENGINEER Work Phone: [facility] 07-28-2022 08:50-0500 Systolic blood pressure 154 mm[Hg] Bonita Kunzhof CHIEF NUCLEAR MEDICINE TECHNOLOGIST.LEAD SOFTWARE ENGINEER Work Phone: [facility] 01-17-2022 10:07-0400 Body weight 76.66 kg Reena Robles MD Work Phone: [facility] 01-17-2022 10:07-0400 Diastolic blood pressure 66 mm[Hg] Reena Robles MD Work Phone: [facility] 01-17-2022 10:07-0400 Heart rate 68 /min Reena Robles MD Work Phone: [facility] 01-17-2022 10:07-0400 Respiratory rate 16 /min Reena Robles MD Work Phone: [facility] 01-17-2022 10:07-0400 Systolic blood pressure 140 mm[Hg] Reena Robles MD Work Phone: [facility] Encounters Encounter Date Encounter Type Care Provider Facility Start: 03-20-2025 End: 03-20-[address] Reena Robles MD Work Phone: -[facility] Lab Start: 03-20-2025 End: 03-20-2025 Patient encounter procedure Gabriela Bui FLORICULTURE PROFESSOR-C -Sleep Lab Work Phone: Start: 03-20-2025 End: 03-20-2025 ambulatory Gabriela Bui NP Facility:[facility] Start: 02-27-2025 End: 02-27-2025 Patient encounter procedure Gabriela Bui FLORICULTURE PROFESSOR-C -[facility] Work Phone: Start: 02-27-2025 End: 02-27-[address] Reena Robles MD Work Phone: -[facility] Start: 01-17-2025 End: 01-17-2025 Office outpatient visit 25 minutes Reena Robles MD Work Phone: [facility] Comment on above: Type 2 diabetes erica itus without complication, without long- term current use of insulin (HCC) (Primary Dx); Anxiety with depression; Mixed hyperlipidemia Start: 01-17-2025 End: 01-17-2025 ambulatory REENA ROBLES Facility:[facility] Start: 12-29-2024 End: 12-29-2024 Office outpatient visit 25 minutes Reena Robles MD Work Phone: [facility] Comment on above: Fall, initial encoun ter (Primary Dx); Screening for depression; Encounter for screening examination for other mental health and behavioral disorders; Laceration of right ear region; Mixed hyperlipidemia; Essential hypertension, benign; Type 2 diabetes mellitus without complication, without long-term current use of insulin (HCC); Anxiety with depression Start: 12-29-2024 End: 12-29-2024 ambulatory REENA RBOLES Facility:[facility] Start: 12-18-2024 End: 12-18-2024 ambulatory [facility] Facility:[facility] Start: 12-10-2024 End: 12-10-2024 Emergency department patient visit Dr. Reena Robles MD Work Phone: -Emergency Department Work Phone: Start: 07-28-2024 End: 07-28-2024 Telephone encounter Bonita Gar APRN.CNP Work Phone: [facility] Comment on above: Results Start: 07-15-2024 End: 07-15-2024 ambulatory Reena Robles MD Work Phone: [facility] Comment on above: Handicap Parking Papa card Start: 07-07-2024 End: 07-11-2024 ambulatory Reena Robles MD Work Phone: [facility] Comment on above: HANDICAL PLACARD Start: 07-05-2024 End: 07-06-2024 ambulatory Bonita Gar CHIEF NUCLEAR MEDICINE TECHNOLOGIST.LEAD SOFTWARE ENGINEER Work Phone: [facility] Start: 07-05-2024 End: 07-06-2024 Patient encounter procedure Bonita Gar CHIEF NUCLEAR MEDICINE TECHNOLOGIST.LEAD SOFTWARE ENGINEER Work Phone: [facility] Comment on above: LAB TESTS FOR NEXT A PPOINTMENT Start: 04-10-2023 Telephone encounter Miranda Ken pastor PSYCHIATRIC Work Phone: Psychology Comment on above: bh consult Start: 03-26-2023 ambulatory Reena khanna MD Work Phone: [facility] Comment on above: LAST ALT TEST AT [facility] Start: 03-09-2023 End: 03-09-2023 Patient encounter procedure Valorie Chi CHIEF NUCLEAR MEDICINE TECHNOLOGIST.LEAD SOFTWARE ENGINEER Work Phone: [facility] Comment on above: Cellulitis of skin ( Primary Dx); Insect bite, unspecified site, initial encounter Start: 10-24-2022 Telephone encounter Bonita chacon CHIEF NUCLEAR MEDICINE TECHNOLOGIST.LEAD SOFTWARE ENGINEER Work Phone: [facility] Comment on above: Results (Labs ) Start: 07-28-2022 End: 07-28-2022 Patient encounter procedure Bonita Gar CHIEF NUCLEAR MEDICINE TECHNOLOGIST.LEAD SOFTWARE ENGINEER Work Phone: [facility] Comment on above: Essential hypertensi on, benign (Primary Dx); Mixed hyperlipidemia; Prediabetes; DALE (obstructive sleep apnea); Osteoarthritis of spine with radiculopathy, lumbar region; Bilateral leg edema; DDD (degenerative disc disease), lumbar; Left hip pain Start: 04-29-2022 Telephone encounter Reena sarah MD Work Phone: [facility] Comment on above: Orders Start: 01-17-2022 End: 01-17-2022 Patient encounter procedure Reena Robles MD Work Phone: [facility] Comment on above: Essential hypertensi on, [...] W/DIFF/PLT (EXTE RNAL LAB GT) Cande Penix LEAD SOFTWARE ENGINEER Work Phone: Start: 04-05-2024 Comprehensive metabo lic 2000 panel - Serum or Plasma Cande Penix LEAD SOFTWARE ENGINEER Work Phone: Start: 04-05-2024 Hemoglobin A1c/Hemoglobin.total in Blood Cande Penix LEAD SOFTWARE ENGINEER Work Phone: Start: 04-05-2024 Lipid panel Cande Peni x LEAD SOFTWARE ENGINEER Work Phone: Start: 04-05-2024 PSA screening Cande Pen ix LEAD SOFTWARE ENGINEER Work Phone: Comment on above: [facility] Start: 04-05-2024 Thyrotropin [Units/volume] in Serum or Plasma Cande Penix LEAD SOFTWARE ENGINEER Work Phone: Start: 04-05-2024 Thyroxine (T4) free [Mass/volume] in Serum or Plasma Cande Penix LEAD SOFTWARE ENGINEER Work Phone: Start: 04-05-2024 VITAMIN D 25 HYDROXY (EU,FV,HL,ZULEIMA,MM,SP) Cande Poon LEAD SOFTWARE ENGINEER Work Phone: Start: 01-17-2022 Adult depression screening assessment Reena Robles MD Work Phone: History of cataract extraction H/O cataract removal with insertion of prosthetic lens Dr. Reena Robles MD Work Phone: History of radiation therapy Hx of brachytherapy Dr. Reena Robles MD Work Phone: Plan of Treatment Date Care Activity Detail Author Start: 04-05-2027 Diabetes Screening Diabetes Screenin g [facility] Start: 03-12-2026 DIABETES SCREEN DIABETES SCREEN [facility] Start: 02-02-2026 DIABETES SCREEN DIABETES SCREEN [facility] Start: 01-17-2026 Diabetic foot examination Diabetic Foot Exam [facility] Start: 01-10-2026 Glaucoma screening Dilated Retinal E xam [facility] Start: 12-29-2025 Anxiety Screening Anxiety Screening [facility] Start: 12-29-2025 Covid-19 Vaccine ( season) Covid-19 Vaccine () [facility] Comment on above: Postponed from 04/24 (Declined at this time) Start: 12-29-2025 Depression Screening Depression Scre ening [facility] Start: 10-23-2025 DIABETES SCREEN DIABETES SCREEN [facility] Start: 10-07-2025 Hepatitis B screening Urine Al bumin:Creatinine Ratio [facility] Start: 10-07-2025 Hepatitis B surface antibody level LDL Cholesterol [facility] Start: 07-24-2025 DIABETES SCREEN DIABETES SCREEN [facility] Start: 04-06-2025 Hemoglobin A1c measurement HbA1C [facility] Start: 01-08-2025 DIABETES SCREEN DIABETES SCREEN [facility] Start: 12-10-2024 Simple repair f/e/e/n/l/m 2.5cm/< RPR F/E/E/N/L/M 2.5 CM/< [facility] Start: 12-10-2024 [facility] Start: 08-24-2024 Advance Directive Discussion Advance Directive Discussion [facility] Start: 04-24-2024 Covid-19 Vaccine (4 - 2024-25 season) Covid-19 Vaccine ( season) [facility] Start: 04-24-2024 Influenza vaccination Influenza Vacc ine (#1) [facility] Start: 11-02-2023 Urine microalbumin profile [facility] Start: 08-24-2023 Advance Directive Discussion Advance Directive Discussion [facility] Start: 07-28-2023 ANNUAL PCP TEAM REGULATORY TECHNICIAN RADHA DISEASE VISIT ANNUAL PCP TEAM CHRONIC DISEASE VISIT [facility] Start: 04-24-2023 Influenza vaccination INFLUENZA (#1) [facility] Start: 01-26-2023 End: 03-28-2023 Lipid 1996 panel - Serum or Plasma LIPID PANEL BASIC Lab Routine Mixed hyperlipidemia Expected: 01/26/2023, Expires: 03/28/2023 [facility] Work Phone: Comment on above: Expected: 01/26/2023 , Expires: 03/28/2023 Start: 01-17-2023 Adult depression screening assessment DEPRESSION SCREENING [facility] Start: 01-17-2023 ANNUAL PCP TEAM REGULATORY TECHNICIAN RADHA DISEASE VISIT ANNUAL PCP TEAM CHRONIC DISEASE VISIT [facility] Start: 10-26-2022 End: 12-26-2022 Comprehensive metabolic 2000 panel - Serum or Plasma COMP METABOLIC PANEL Lab Routine Prediabetes Expected: 10/26/2022, Expires: 12/26/2022 [facility] Work Phone: Comment on above: Expected: 10/26/2022 , Expires: 12/26/2022 Start: 10-26-2022 End: 12-26-2022 Hemoglobin A1c in Blood HGB A1C Lab Routine Prediabetes Expected: 10/26/2022, Expires: 12/26/2022 [facility] Work Phone: Comment on above: Expected: 10/26/2022 , Expires: 12/26/2022 Start: 08-24-2022 ADVANCE DIRECTIVE DISCUSSION ADVANCE DIRECTIVE DISCUSSION [facility] Start: 08-24-2022 DEPRESSION ASSESSMENT DEPRESSION ASS ESSMENT [facility] Start: 07-20-2022 End: 09-19-2022 Comprehensive metabolic 2000 panel - Serum or Plasma COMP METABOLIC PANEL Lab Routine Essential hypertension, benign Mixed hyperlipidemia Elevated glucose Expected: 07/20/2022 (Approximate), Expires: 09/19/2022 [facility] Work Phone: Comment on above: Expected: 07/20/2022 (Approximate), Expires: 09/19/2022 Start: 07-20-2022 End: 09-19-2022 Hemoglobin A1c/Hemoglobin.total in Blood HGB A1C Lab Routine Elevated glucose Expected: 07/20/2022 (Approximate), Expires: 09/19/2022 [facility] Work Phone: Comment on above: Expected: 07/20/2022 (Approximate), Expires: 09/19/2022 Start: 07-20-2022 End: 09-19-2022 Hemoglobin.gastrointest inal.lower [Presence] in Stool by Immunoassay FECAL OCCULT BLOOD TEST Lab Routine Screening for colon cancer Expected: 07/20/2022 (Approximate), Expires: 09/19/2022 [facility] Work Phone: Comment on above: Expected: 07/20/2022 (Approximate), Expires: 09/19/2022 Start: 07-20-2022 End: 09-19-2022 LIPID PANEL BASIC LIPID PANEL BASIC Lab Routine Essential hypertension, benign Mixed hyperlipidemia Expected: 07/20/2022 (Approximate), Expires: 09/19/2022 [facility] Work Phone: Comment on above: Expected: 07/20/2022 (Approximate), Expires: 09/19/2022 Start: 07-20-2022 End: 09-19-2022 Prostate specific Ag [Mass/volume] in Serum or Plasma PSA/PROSTSPECAG DIAG Lab Routine Malignant neoplasm of prostate (HCC) Expected: 07/20/2022 (Approximate), Expires: 09/19/2022 [facility] Work Phone: Comment on above: Expected: 07/20/2022 (Approximate), Expires: 09/19/2022 Start: 04-24-2022 Influenza vaccination INFLUENZA (#1) [facility] Start: 10-18-2021 COVID-19 VACCINE (4 - Booster for Pfizer series) COVID-19 VACCINE (4 - Booster for Pfizer series) [facility] Start: 09-25-2021 Glaucoma screening Dilated Retinal E xam [facility] Start: 08-12-2021 COVID-19 VACCINE (4 - Booster for Pfizer series) COVID-19 VACCINE (4 - Booster for Pfizer series) [facility] Start: 08-12-2021 COVID-19 VACCINE (4 - Pfizer series) COVID-19 VACCINE (4 - Pfizer series) [facility] Start: 03-31-2019 BP CONTROLLED (<130/80) BP CONTROLLE D (<130/80) [facility] Start: 12-10-2016 PNEUMOCOCCAL: 65+ (3 - PPSV23 or PCV20) PNEUMOCOCCAL: 65+ (3 - PPSV23 or PCV20) [facility] Start: 2016 RSV Vaccine (1 - 1-d ose 75+ series) RSV Vaccine (1 - 1-dose 75+ series) [facility] Start: 1991 SHINGRIX VACCINE (1 of 2) SHINGRIX VACCINE (1 of 2) [facility] Start: 1959 Anxiety Screening Anxiety Screening [facility] Start: 1959 Depression Screening Depression Scre ening [facility] Start: 1951 Diabetic foot examination Diabetic Foot Exam [facility] Hemoglobin.gastroint est inal.lower [Presence] in Stool by Immunoassay FECAL OCCULT BLOOD TEST Lab Routine Screening for colon cancer 04/29/2022 7:00 AM EDT [facility] Work Phone: Patient Education ED Laceration, All Closures [facility] Work Phone: Patient referral [facility] Work Phone: [facility] Immunizations Immunization Date Immunization Notes Care Provider Fa marlo 06-15-2023 influenza virus vacc ine, unspecified formulation Bonita Gar CHIEF NUCLEAR MEDICINE TECHNOLOGIST.LEAD SOFTWARE ENGINEER Work Phone: [facility] 05-24-2022 influenza, seasonal, injectable Bonita Gar CHIEF NUCLEAR MEDICINE TECHNOLOGIST.LEAD SOFTWARE ENGINEER Work Phone: [facility] Work Phone: 06-17-2021 COVID-19 vaccine, ag e 12+ yr ([employer] Shepherd - PURPLE TOP) Reena Robles MD Work Phone: [facility] 06-17-2021 influenza, high dose seasonal, preservative-free Reena Robles MD Work Phone: [facility] 10-13-2020 COVID-19 vaccine, ag e 12+ yr (PFIZER-BIONTECH - PURPLE TOP) Reena Robles MD Work Phone: [facility] 09-22-2020 COVID-19 vaccine, ag e 12+ yr (PFIZER-BIONTECH - PURPLE TOP) Reena Robles MD Work Phone: [facility] 05-15-2020 influenza, high-dose , quadrivalent vaccine (FLUZONE HIGH DOSE QUADRIVALENT) Reena Robles MD Work Phone: [facility] 05-18-2019 AS03 adjuvant Reena mendes MD Work Phone: [facility] 06-09-2017 influenza, high dose seasonal, preservative-free Reena Robles MD Work Phone: [facility] 05-24-2017 influenza nasal, unspecified formulation Reena Robles MD Work Phone: [facility] 07-16-2016 influenza, high dose seasonal, preservative-free Reena Robles MD Work Phone: [facility] 12-11-2015 pneumococcal conjuga te vaccine, 13 valent Reena Robles MD Work Phone: [facility] 06-02-2014 influenza, high dose seasonal, preservative-free Reena Robles MD Work Phone: [facility] 11-01-2013 tetanus toxoid, redu felisa diphtheria toxoid, and acellular pertussis vaccine, adsorbed Reena Robles MD Work Phone: [facility] 11-01-2013 tetanus toxoid, unspecified formulation Reena Robles MD Work Phone: [facility] 06-07-2013 influenza virus vacc ine, unspecified formulation Reena Robles MD Work Phone: [facility] 07-16-2012 influenza virus vacc ine, unspecified formulation Reena Robles MD Work Phone: [facility] 07-23-2011 influenza virus vacc ine, unspecified formulation Reena Robles MD Work Phone: [facility] 06-18-2010 influenza virus vacc ine, unspecified formulation Reena Robles MD Work Phone: [facility] Work Phone: 06-07-2009 influenza nasal, unspecified formulation Reena Robles MD Work Phone: [facility] 06-07-2009 pneumococcal vaccine , unspecified formulation Reena Robles MD Work Phone: [facility] 06-12-2008 influenza virus vacc ine, unspecified formulation Reena Robles MD Work Phone: [facility] 06-10-2007 pneumococcal polysaccharide vaccine, 23 valent Reena Robles MD Work Phone: [facility] Work Phone: 07-07-2006 influenza virus vacc ine, unspecified formulation Reena Robles MD Work Phone: [facility] Work Phone: 07-11-2004 hepatitis A and hepatitis B vaccine Reena Robles MD Work Phone: [facility] 10-27-2003 tetanus and diphther ia toxoids, adsorbed, preservative free, for adult use (2 Lf of tetanus toxoid and 2 Lf of diphtheria toxoid) Reena Robles MD Work Phone: [facility] 09-24-2003 TD(adult) unspecifie d formulation Reena Robles MD Work Phone: [facility] 08-24-2003 diphtheria and tetan us toxoids, adsorbed for pediatric use Reena Robles MD Work Phone: [facility] Work Phone: Payers Date Payer Category Payer Self-pay 2006 Medicare MEDICARE MEDICAR E A AND B [id number] 2006-Present [phone] [place] [address] Medicare [id number] 2006 Medicare [id number] 2006 Medicare [id number] 2006 Government (not [facility] care or Medicaid) FOR LIFE [id number] 2006 Unknown FOR LIFE [id number] 2006-Present [phone] [place] [id number] Indemnity [id number] 2006 Self-pay [id number] [address] [facility] OPTUM [id number] 1998-Present [phone] [address] [place] [address] PPO [id number] 1998 Unknown [id number] Unknown [id number] Unknown [id number] Unknown [id number] Social History Date Type Detail Facility Start: 07-16-2012 End: 12-10-2024 Tobacco smoking status NHIS Never smoked tobacco [facility] Start: 07-19-2021 End: 01-17-2025 Alcohol intake Current drinker of alcohol (finding) [facility] Start: 04-26-2020 End: 07-23-2022 History SDOH Alcohol Frequency 5 [facility] Start: 04-26-2020 End: 07-23-2022 History SDOH Alcohol Std Drinks 1 [facility] Start: 04-26-2020 End: 07-23-2022 History SDOH Social Connections Scientology 3 [facility] Start: 04-26-2020 End: 07-23-2022 History SDOH Social Connections Membership 2 [facility] Start: 04-26-2020 Education 18 [facility] Start: 1940 Sex Assigned At Not on file [facility] Start: 07-16-2012 End: 07-28-2022 Tobacco use and exposure Smokeless tobacco non-user [facility] Start: 07-23-2022 History SDOH Alcohol Frequency 98 [facility] Start: 07-23-2022 History SDOH Social Connections Get Together 4 [facility] Start: 07-18-2022 End: 07-28-2022 Exposure to SARS-CoV-2 (event) Not sure [facility] Start: 07-29-2020 End: 07-23-2022 History of Social function [facility] Start: 07-29-2020 End: 07-23-2022 Social connection and isolation panel [facility] How often do you att end zoroastrian or advent services? Patient refused [facility] Do you belong to any clubs or organizations such as zoroastrian groups, unions, fraternal or athletic groups, or school groups? Yes [facility] Are you now , , , , never or living with a partner? [facility] How often do you hav e 6 or more drinks on 1 occasion? Never [facility] Do you feel stress - tense, restless, nervous, or anxious, or unable to sleep at night because your mind is troubled all the time - these days [OSQ] To some extent [facility] (I/We) worried wheth er (my/our) food would run out before (I/we) got money to buy more. Never true [facility] In the past 12 month s, was there a time when you were not able to pay the mortgage or rent on time? No [facility] Start: 12-10-2024 Sex Male (finding) [facility] Start: 1940 Sex Assigned At Male [facility] How often to you hav e a drink containing alcohol? 4 or more times a week [facility] How many standard dr inks containing alcohol do you have on a typical day? 1 or 2 [facility] Functional Status Date Assessment Result Facility 03-30-2015 Are you deaf, or do you have serious difficulty hearing No 03/30/2015 9:42 AM Arabella Louis RN No [facility] 03-30-2015 Are you blind, or do you have serious difficulty seeing, even when wearing glasses No 03/30/2015 9:42 AM Arabella Louis RN No [facility] 03-30-2015 Do you have serious difficulty walking or climbing stairs No 03/30/2015 9:42 AM Arabella Louis RN No [facility] 03-30-2015 Do you have difficul ty dressing or bathing No 03/30/2015 9:42 AM Arabella Louis RN No [facility] 03-30-2015 Because of a physica l, mental, or emotional condition, do you have difficulty doing errands alone such as visiting a physician's office or shopping No 03/30/2015 9:42 AM Arabella Louis RN No [facility] Mental Status Date Assessment Result Facility 03-30-2015 Because of a physica l, mental, or emotional condition, do you have serious difficulty concentrating, remembering, or making decisions No 03/30/2015 9:42 AM Arabella Louis RN No [facility] Clinical Notes 03-08-2009 to 02-27-2025 Note Date & Type Note Facility 02-27-2025 Evaluation note Diagnosis Onset Date Resolution DALE (obstructive sleep apnea) chronic February 27, 2025 8 :05am [facility] Work Phone: [phone] 189-272905-27-2025 History of Present illness Narrative* Reena Robles MD - 01/17/2025 10:40 AM EDT Chief Complaint Patient presents with: Diabetes: HPI Luis Fernando Howard is a 84 year old male who presents here today for diabetes concerns. Has an advanced directive. [facility] He follows with [facility] at [place]. DM: Taking Metformin ER 500 mg 1 pill daily. [facility]. No neuropathy sx. Nohypoglycemic episodes. Checking BS at home with FBS 140. His last A1c he said was 7.4 which was done at [facility]. No falls. Last fall 12/29/24. Depression/DAVID: stable with Celexa 10 mg daily. Has family support and grand children close, some in [place]. Range in ages of 25 to 13 [...] LENS PROSTH W/O ECP 05/2013 done at [facility] left eye Family History FAMILY HISTORY Problem [...] Past Histories independently gathered by the clinical product support sales representative and the remaining scribed note accurately describes [...] AM. Katie Bowman MA [facility] NoteHNO ID: [id number] Author: REENA ROBLES MD Service: ? Author Type: Physician Type: Progress Notes Filed: 01/17/2025 15:02 Note Text: Chief Complaint Patient presents with: Diabetes: HPI Luis Fernando Howard is a 84 year old male who presents here today for diabetes concerns. Has an advanced directive. [facility] and care. He follows with Optometry at [place]. DM: Taking Metformin ER 500 mg 1 pill daily. [facility]. No neuropathy sx. No hypoglycemic episodes. Checking BS at home with FBS 140. His last A1c he said was 7.4 which was done at [facility]. No falls. Last fall 12/29/24. Depression/DAVID: stable with Celexa 10 mg daily. Has family support and grand children close, some in [place]. Range in ages of 25 to 13 [...] LENS PROSTH W/O ECP 05/2013 done at [facility] left eye Family History FAMILY HISTORY Problem [...] Past Histories independently gathered by the clinical product support sales representative and the remaining scribed note accurately describes my personal service to the patient. Medical Decision Making: Problems: Moderate: 2+ stable chronic illnesses Risk: Moderate: Drug management Medical Decision Making Level: 4 - Moderate Reena Robles MD (more content not included)...[facility]05-08-2025 History of Present illness Narrative* Reena Robles MD - 12/29/2024 10:00 AM EDT Chief Complaint Patient presents with: ED Follow-up: [facility]-fall, sutures to the right ear, those are out HPI Luis Fernando Howard is a 84 year old male who presents here today for ER Follow Up.. Grandson going to [place] for biomedical engineering; runner Pt here today for a [facility] ED follow up from 12/10/24. Pt has not been seen in the office since 07/2022. Pt stated he did hit his right ear, had stitches placed which were removed at . Denies LOC. The ear is healing, tender to touch. Has not had any further falls. Admits he does have balance issues when walking. He stated his fall was due to auger operator error, did not back up enough to the bed before sitting. Denies any other cause for the fall. Tetanus was not updated at ER. Had depth perception issue of the right eye. [facility] records from 12/10/24: Narrative: Patient [...] the procedure well without complication Follows with [facility] every 6 months. All his prescriptions are prescribed by providers at [facility]. No bowel, Gi, or urinary issues. DM: taking Metformin xr 500 mg once daily. He had A1c done at [facility] in Sep with result 6.8. He does not check BS much at home. No hypoglycemic issues. No neuropathy in feet. He does not eat bread anymore. Eats salads daily. HTN: Does check BP at home with readings running 140/65. No chest pains, dizziness, or SOB. No haz tech. Lipid: Taking Lipitor 40 mg daily, tolerating well. 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 Tries to watch diet. He does not eat bread anymore. Eats salads daily. Depression/DAVID: Taking Celexa 10 mg daily. No counseling at this time. Was going every 6 months through [facility] but was advised he didn't need to [...] LENS PROSTH W/O ECP 05/2013 done at [facility] left eye Family History FAMILY HISTORY Problem [...] reviewed ER reports Copy of labs from [facility] brought it and added to record. HM [...] Past Histories independently gathered by the clinical product support sales representative and the remaining scribed note accurately describes [...] AM. Katie Bowman MA documented in this encounterOhio State [facility]ing [facility]05-08-2025 NoteHNO ID: [id number] Author: REENA ROBLES MD Service: ? Author Type: Physician Type: Progress Notes Filed: 12/29/2024 10:19 Note Text: Chief Complaint Patient presents with: ED Follow-up: [facility]-fall, sutures to the right ear, those are out HPI Luis Fernando Howard is a 84 year old male who presents here today for ER Follow Up.. Grandson going to [place] for biomedical engineering; runner Pt here today for a [facility] ED follow up from 12/10/24. Pt has not been seen in the office since 07/2022. Pt stated he did hit his right ear, had stitches placed which were removed at [facility]. Denies LOC. The ear is healing, tender to touch. Has not had any further falls. Admits he does have balance issues when walking. He stated his fall was due to auger operator error, did not back up enough to the bed before sitting. Denies any other cause for the fall. Tetanus was not updated at ER. Had depth perception issue of the right eye. [facility] records from 12/10/24: Narrative: Patient [...] the procedure well without complication Follows with [facility] every 6 months. All his prescriptions are prescribed by providers at [facility]. No bowel, Gi, or urinary issues. DM: taking Metformin xr 500 mg once daily. He had A1c done at [facility] in Sep with result 6.8. He does not check BS much at home. No hypoglycemic issues. No neuropathy in feet. He does not eat bread anymore. Eats salads daily. HTN: Does check BP at home with readings running 140/65. No chest pains, dizziness, or SOB. No haz tech. Lipid: Taking Lipitor 40 mg daily, tolerating well. 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 Tries to watch diet. He does not eat bread anymore. Eats salads daily. Depression/DAVID: Taking Celexa 10 mg daily. No counseling at this time. Was going every 6 months through [facility] but was advised he didn't need to [...] LENS PROSTH W/O ECP 05/2013 done at [facility] left eye Family History FAMILY HISTORY Problem [...] daily. loratadine (CLARITIN) 10 (more content not included)...[facility]04-27-2025 NoteHNO ID: [id number] Author: PAULINE PEREZ APRN.LEAD SOFTWARE ENGINEER Service: ? Author Type: Nurse Practitioner Type: Progress Notes Filed: 12/18/2024 13:50 Note Text: [facility] Subjective Luis Fernando Howard is a 84 year old male. Patient presents with: Suture Removal: 4 suture top of RIGHT ear at [facility] 12/10/24 Patient came in with complaints of needing 4 sutures taken out of his ear. Patient had 4 sutures placed 8 days ago at the ER in [place]. Patient denies any complications with healing. The history is provided by the patient. No floral designer was used. Suture Removal Review of Systems [...] LENS PROSTH W/O ECP 05/2013 done at [facility] left eye ALLERGIES Kleber Inhibitors and Atenolol [...] all 4 sutures removed completely. Pauline Perez APRN.LEAD SOFTWARE ENGINEER MDM ProceduresAshtabula [facility]12-05-2024 Telephone encounter Note* Telephone Encounter - Tina Buckley RN - 07/28/2024 10:41 AM EST Patient returned call and given provider's message below and patient verbalized understanding. Beverly Buckley RN [facility]12-05-2024 Miscellaneous Notes* Telephone Encounter - Tina [...] LPN * Telephone Encounter - Bonita Gar APRN.PRIYA - 07/28/2024 9:54 AM EST [...] ordered. Bonita Gar APRN.CNP documented in this encounterOhio State Harding Hospital12-05-2024 Telephone encounter Note * Telephone Encounter - Charlee Hsieh LPN - 07/28/2024 10:32 AM EST TC to pt. LM to call office, ask for triage nurse to get results. Charlee Hsieh LPN [facility]12-05-2024 Telephone encounter Note* Telephone Encounter - [...] they can be ordered. Bonita Gar APRN.CNP [facility]11-22-2024 Telephone encounter Note* Telephone Encounter - Katie Bowman MA - 07/15/2024 8:04 AM EST Jackie shredded. Katie Bowman MA [facility]11-22-2024 Miscellaneous Notes* Telephone Encounter - Katie Bowman MA - 07/15/2024 8:04 AM EST Placard shredded. Katie Bowman MA documented in this encounterOhio State Harding Hospital11-18-2024 Telephone encounter Note * Telephone Encounter - Katie Bowman MA - 07/11/2024 2:38 PM EST At medical records. Pt notified via [employer]. Katie Bowman MA [facility]11-18-2024 Miscellaneous Notes* Telephone Encounter - Katie Bowman MA - 07/11/2024 2:38 PM EST At medical records. Pt notified via [employer]. Katie Bowman MA * Telephone Encounter - Glo Ardon MA - 07/11/2024 2:20 PM EST On PCP desk to sign. Glo Ardon MA * Telephone Encounter - Reena Robles MD - 07/11/2024 2:14 PM EST Ok for parking jackie Rx Reena Robles MD * Telephone Encounter - Gol Ardon MA - 07/07/2024 3:20 PM EST Pt requested handicap jackie be written to roll picker tomorrow. Notified pt that PCP is [...] message. Glo Ardon MA documented in this encounterOhio State Harding Hospital11-18-2024 Telephone encounter Note * Telephone Encounter - Glo Ardon MA - 07/11/2024 2:20 PM EST On PCP desk to sign. Glo Ardon MA [facility]11-18-2024 Telephone encounter Note* Telephone Encounter - Reena Robles MD - 07/11/2024 2:14 PM EST Ok for parking placard Rx Reena Robles MD [facility]11-14-2024 Telephone encounter Note* Telephone Encounter - Glo Ardon MA - 07/07/2024 3:20 PM EST Pt requested handicap placard be written to roll picker tomorrow. Notified pt that PCP is [...] to pt for this. Glo Ardon MA [facility]11-14-2024 Telephone encounter Note* Telephone Encounter - Glo Ardon MA - 07/07/2024 2:43 PM EST Pt has been notified he's due for an appt. Have offered him 3 x to schedule, no appt made. Now requesting handicap [facility] Do you want to write this orsee pt first? See pt message. Glo Ardon MA [facility]11-12-2024 Telephone encounter Note* Telephone Encounter - [...] scheduled with PCP Team. Glo Ardon MA [facility]11-12-2024 Miscellaneous Notes* Telephone Encounter - Glo [...] Team. Glo Ardon MA documented in this encounterOhio State Harding Hospital08-18-2023 Miscellaneous Notes* Telephone Encounter - Miranda Garcia LPCC - 04/10/2023 11:12 AM EDT Behavioral Health Social Work Progress Note Patient identified for [facility] from: PCP Reason for referral: Resources Behavioral Health Resources: Psychology - talk therapy [facility] encounter type: Telephone Encounter, MyChart Message Attempts [...] Peterson-S April 10, 2023 documented in this encounterOhio State Harding Hospital08-03-2023 Miscellaneous Notes* Telephone Encounter - Glo Ardon Ma - 03/26/2023 9:01 AM EDT See pt message and advise. 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 Witch brady, [place] and [place] topically reduces inflamation, itching and [...] soaked in meat tenderizer solution to relieve [id number] NOT USEAROUND THE EYES. If meat tenderizer [...] or the condition worsens. documented in this encounterOhio State Harding Hospital03-03-2023 Miscellaneous Notes* Telephone Encounter - Charlee [...] you. Bonita Gar APRN.PRIYA documented in this encounterOhio State Harding Hospital12-05-2022 Instructions* Patient Instructions* Bonita Gar APRN.CNP [...] GFR Liver: AST, ALT documented in this encounterOhio State Harding Hospital12-05-2022 History of Present illness Narrative* Bonita Gar APRN.LEAD SOFTWARE ENGINEER - 07/28/2022 9:00 AM EST This is [...] as prescribed. - Keep scheduled appointments at [facility]. 6. Bilateral leg edema - ICD9: 782.3, [...] discussed and patient voices understanding. Bonita Gar APRN.LEAD SOFTWARE ENGINEER This note was partially generated using [employer] recognition system. Note was reviewed for accuracy. There may be minor misspellings or grammar miscues with [employer] recognition. documented in this encounterOhio State Harding Hospital09-06-2022 Miscellaneous Notes* Telephone Encounter - Pepito [...] processed. Glo Ardon Ma documented in this encounterOhio State Harding Hospital05-27-2022 History of Present illness Narrative* Reena Robles MD - 01/17/2022 10:40 AM EDT Chief Complaint No chief complaint on file. HPI Luis Fernando Howard is a 81 year old male who presents here today for 6 month follow up. [facility] [place] [facility]. Denies any bowel, Gi, [...] Moderate Reena Robles MD documented in this encounterOhio State Harding Hospital07-16-2009 History of Past illness Narrative* Problem Noted Date Resolved Date Neoplasm of uncertain behavior of skin 9 12/24/2009 Contact dermatitis and other eczema due to plants (except food) 03/25/2007 06/10/2007 PAIN FINGER 12/23/2005 06/10/2007 Benign neoplasm of colon 10/31/2005 011 Internal hemorrhoids without mention of complica tion 10/31/2005 07/23/2011 documented as of this encounter (statuses as of 01/17/2022) [facility] of Past illness Narrative* Problem Noted Date Resolved Date Neoplasm of uncertain behavior of skin 9 12/24/2009 Contact dermatitis and other eczema due to plants (except food) 03/25/2007 06/10/2007 PAIN FINGER 12/23/2005 06/10/2007 Benign neoplasm of colon 10/31/2005 011 Internal hemorrhoids without mention of complica tion 10/31/2005 07/23/2011 documented as of this encounter (statuses as of 04/29/2022) [facility] of Past illness Narrative* Problem Noted Date Resolved Date Neoplasm of uncertain behavior of skin 9 12/24/2009 Contact dermatitis and other eczema due to plants (except food) 03/25/2007 06/10/2007 PAIN FINGER 12/23/2005 06/10/2007 Benign neoplasm of colon 10/31/2005 011 Internal hemorrhoids without mention of complica tion 10/31/2005 07/23/2011 documented as of this encounter (statuses as of 07/28/2022) [address]16-2009 History of Past illness Narrative* Problem Noted Date Resolved Date Neoplasm of uncertain behavior of skin 9 12/24/2009 Contact dermatitis and other eczema due to plants (except food) 03/25/2007 06/10/2007 PAIN FINGER 12/23/2005 06/10/2007 Benign neoplasm of colon 10/31/2005 011 Internal hemorrhoids without mention of complica tion 10/31/2005 07/23/2011 documented as of this encounter (statuses as of 10/24/2022) [address]16-2009 History of Past illness Narrative* Problem Noted Date Diagnosed Date Resolved Date Neoplasm of uncertain behavior of skin 03/08/2009 12/24/2009 Contact dermatitis and other eczema due to plants (except food) 03/25/2007 06/10/2007 PAIN FINGER 12/23/2005 06/10/2007 Benign neoplasm of colon 10/31/2005 Internal hemorrhoids without mention of complication 10/31/2005 07/23/2011 documented as of this encounter (statuses as of 03/10/2023) [place] [address]-16-2009 History of Past illness Narrative* Problem Noted Date Diagnosed Date Resolved Date Neoplasm of uncertain behavior of skin 03/08/2009 12/24/2009 Contact dermatitis and other eczema due to plants (except food) 03/25/2007 06/10/2007 PAIN FINGER 12/23/2005 06/10/2007 Benign neoplasm of colon 10/31/2005 Internal hemorrhoids without mention of complication 10/31/2005 07/23/2011 documented as of this encounter (statuses as of 03/26/2023) [facility] of [facility] Narrative* Problem Noted Date Diagnosed Date Resolved Date Neoplasm of uncertain behavior of skin 03/08/2009 12/24/2009 Contact dermatitis and other eczema due to plants (except food) 03/25/2007 06/10/2007 PAIN FINGER 12/23/2005 06/10/2007 Benign neoplasm of colon 10/31/2005 Internal hemorrhoids without mention of complication 10/31/2005 07/23/2011 documented as of this encounter (statuses as of 04/10/2023) [facility] note* Diagnosis Essential hypertension, benign- Primary Mixed hyperlipidemia DALE (obstructive sleep apnea) Obstructive sleep apnea (adult) (pediatric) Malignant neoplasm of prostate (HCC) Malignant neoplasm of prostate Screening for colon cancer Special screening for malignant neoplasms, colon Elevated glucose Other abnormal glucose documented in this encounter [facility] note* Diagnosis Screening for colon cancer- Primary Special screening for malignant neoplasms, colon documented in this encounter [facility] note* Diagnosis Essential hypertension, benign- Primary Mixed hyperlipidemia Prediabetes Other abnormal glucose DALE (obstructive sleep apnea) Obstructive sleep apnea (adult) (pediatric) Osteoarthritis of spine with radiculopathy, lumbar region Bilateral leg edema Edema DDD (degenerative disc disease), lumbar Degeneration of lumbar or lumbosacral intervertebral disc Left hip pain Pain in joint, pelvic region and thigh documented in this encounter [facility] note* Diagnosis Cellulitis of skin- Primary Cellulitis and abscess of unspecified site Insect bite, unspecified site, initial encounter documented in this encounter [facility] noteNo assessment information availableWMary Rutan Hospital Work Phone: Evaluation note* Diagnosis Fall, initial encounter- Primary Screening for depression Encounter for screening examination for other mental health and behavioral disorders Laceration of right ear region Mixed hyperlipidemia Essential hypertension, benign Type 2 diabetes mellitus without complication, without long-term current use of insulin ([facility]) Anxiety with depression documented in this encounter [facility] note* Diagnosis Type 2 diabetes mellitus without complication, without long-term current use of insulin ([facility])- Primary Anxiety with depression Mixed hyperlipidemia [facility] Additional Instructions Please see your family doctor or return to the ER in 7 to 10 days for suture removalWMary Rutan Hospital Work Phone: Reason for referral (narrative)No reason for referral information availableWMary Rutan Hospital Work Phone: Chief Complaint and Reason for Visit Chief Complaint Admit Date fallDecember 10, 2024 2:4 0am Chief Complaint Admit Date fallDecember 10, 2024 2:4 0am [facility] February 27, 2025 8:05a m Chief [...] Do you have a Healthcare Power of Gum Machine Filler? No December 10, 2024 2:40am Summary Purpose [...] or prosecute any alcohol or drug abuse patient.[facility] HospitalIn the event this information is protected by the Federal Confidentiality of Alcohol and Drug Abuse Patient Records regulations: The Federal rules restrict any use of the information to criminally investigate or prosecute any alcohol or drug abuse patient.[facility] HospitalIn the event this information is protected by the Federal Confidentiality of Alcohol and Drug Abuse Patient Records regulations: The Federal rules restrict any use of the information to criminally investigate or prosecute any alcohol or drug abuse patient.[facility] HospitalIn the event this information is protected by the Federal Confidentiality of Alcohol and Drug Abuse Patient Records regulations: The Federal rules restrict any use of the information to criminally investigate or prosecute any alcohol or drug abuse patient.[facility] HospitalIn the event this information is protected by the Federal Confidentiality of Alcohol and Drug Abuse Patient Records regulations: The Federal rules restrict any use of the information to criminally investigate or prosecute any alcohol or drug abuse patient.[facility] HospitalIn the event this information is protected by the Federal Confidentiality of Alcohol and Drug Abuse Patient Records regulations: The Federal rules restrict any use of the information to criminally investigate or prosecute any alcohol or drug abuse patient.[facility] HospitalIn the event this information is protected by the Federal Confidentiality of Alcohol and Drug Abuse Patient Records regulations: The Federal rules restrict any use of the information to criminally investigate or prosecute any alcohol or drug abuse patient.[facility] HospitalIn the event this information is protected by the Federal Confidentiality of Alcohol and Drug Abuse Patient Records regulations: The Federal rules restrict any use of the information to criminally investigate or prosecute any alcohol or drug abuse patient.[facility] HospitalIn the event this information is protected by the Federal Confidentiality of Alcohol and Drug Abuse Patient Records regulations: The Federal rules restrict any use of the information to criminally investigate or prosecute any alcohol or drug abuse patient.[facility] HospitalIn the event this information is protected by the Federal Confidentiality of Alcohol and Drug Abuse Patient Records regulations: The Federal rules restrict any use of the information to criminally investigate or prosecute any alcohol or drug abuse patient.[facility] HospitalIn the event this information is protected by the Federal Confidentiality of Alcohol and Drug Abuse Patient Records regulations: The Federal rules restrict any use of the information to criminally investigate or prosecute any alcohol or drug abuse patient.[facility] HospitalIn the event this information is protected by the Federal Confidentiality of Alcohol and Drug Abuse Patient Records regulations: The Federal rules restrict any use of the information to criminally investigate or prosecute any alcohol or drug abuse patient.[facility] HospitalIn the event this information is protected by the Federal Confidentiality of Alcohol and Drug Abuse Patient Records regulations: The Federal rules restrict any use of the information to criminally investigate or prosecute any alcohol or drug abuse patient.[facility] Reason for Visit (unrecogniz ed section [...] Care Teams (unrecognized sec tion and content) Sewing Machine Bobbin Winder Relationship Specialty Start Date End Date Reena Robles MD [address] [place] [address] PCP - General Family Practice 04/10/15 Sewing Machine Bobbin Winder Relationship Specialty Start Date End Date Reena Robles MD [address] [place] [address] PCP - General Family Practice 04/10/15 Sewing Machine Bobbin Winder Relationship Specialty Start Date End Date Reena Robles MD [address] [place] [address] PCP - General Family Medicine 04/10/15 Sewing Machine Bobbin Winder Relationship Specialty Start Date End Date Reena Robles MD [address] [place] [address] PCP - General Family Medicine 04/10/15 Sewing Machine Bobbin Winder Relationship Specialty Start Date End Date Reena Robles MD [address] [place] [address] PCP - General Family Medicine 04/10/15 Sewing Machine Bobbin Winder Relationship Specialty Start Date End Date Reena Robles MD [address] [place] [address] PCP - General Family Medicine 04/10/15 Sewing Machine Bobbin Winder Relationship Specialty Start Date End Date Reena Robles MD [address] [place] [address] PCP - General Family Medicine 04/10/15 Sewing Machine Bobbin Winder Relationship Specialty Start Date End Date Reena Robles MD [address] [place] [address] PCP - General Family Medicine 04/10/15 Sewing Machine Bobbin Winder Relationship Specialty Start Date End Date Reena Robles MD [address] [place] [address] PCP - General Family Medicine 04/10/15 Sewing Machine Bobbin Winder Relationship Specialty Start Date End Date Reena Robles MD [address] [place] [address] PCP - General Family Medicine 04/10/15 Team Status: Active Member Role Status Dates Dr. Reena Robles MD Primary Care Provider Active Team Status: Inactive Member Role Status Dates Dr. Reena Robles MD Primary Care Provider Active Start: December 10, 2024 End: December 10, 2024 Dr. Marek Ponce , Emergency Provider Active Start: December 10, 2024 End: December 10, 2024 Sewing Machine Bobbin Winder Relationship Specialty Start Date End Date Reena Robles MD [address] [place] [address] PCP - General Family Medicine 04/10/15 Bonita Gar, CHIEF NUCLEAR MEDICINE TECHNOLOGIST.LEAD SOFTWARE ENGINEER [address] [place] [address] Director Of [facility] Family Medicine 07/31/24 Pepito Friend, CHIEF NUCLEAR MEDICINE TECHNOLOGIST.LEAD SOFTWARE ENGINEER [address] [place] [address] Director Of Head Start [facility] 08/09/24 Sewing Machine Bobbin Winder Relationship Specialty Start Date End Date Reena Robles MD [address] [place] [address] PCP - General Family Medicine 04/10/15 Pepito Friend, CHIEF NUCLEAR MEDICINE TECHNOLOGIST.LEAD SOFTWARE ENGINEER [address] [place] [address] Director Of [facility] Family [facility] 08/09/24 Team Status: Active Member [...] section and content) DATE CREATED AUTHOR 04/06/2025 [facility] DATE CREATED AUTHOR AUTHOR'S ORGANIZ ATION 06/07/2025 [facility] FOR RECORDS PERTAINING TO PATIENTS WHO [...] BE BASED ON THE PRIMARY CLINICAL RECORDS. [employer] provides no warranty or guarantee of the accuracy or completeness of information in this document.
[2025-08-20 16:40] LABS: Reflex Lactate? Y
[2025-08-20 17:08] LABS: Magnesium 2.0 mg/dL (1.5-2.2)
[2025-08-20] MEDS: Pantoprazole Sodium 40 MG in 0.9% Normal Saline (100mL MB+) 100 ML 330 MG IV (18:17)
[2025-08-20] MEDS: 0.9% Normal Saline (1000mL) 1,000 ML 75 ML IV (18:18)
[2025-08-20] MEDS: guaiFENesin 10 ML UDC (200MG/10ML) 20 ML PO (20:33)
[2025-08-20 20:40] LABS: Hematocrit 36.9 % (40-54); Hemoglobin 12.5 g/dL (13.0-16.5)
[2025-08-21] VITALS (9 sets, daily range): BP systolic 132–139; BP diastolic 59–78; PULSE 63–77; RESP 16–18; TEMP 36.9–38.4; O2SAT 94–97; BMI 24.8
[2025-08-21] MEDS: guaiFENesin 10 ML UDC (200MG/10ML) 20 ML PO ×2 (00:40→22:15)
[2025-08-21 00:42] LABS: Hematocrit 36.2 % (40-54); Hemoglobin 12.3 g/dL (13.0-16.5)
--- NOTE | 2025-08-21 05:47 | PCM.HOSP.N ---
Hospitalist Note One set of blood cultures came back positive for gram-positive cocci, no mention of clusters or chains. Febrile since admission. He has not had evidence of sepsis (no obvious organ dysfunction, low platelets but above 100 with unknown baseline). Lactate elevation responded to fluids From history and available imaging and labs, unclear source of bacterial infection but pneumonia will be on top of the list PLAN Rocephin 2 g IV daily starting now. Please follow the initial cultures from 08/20 Low likelihood of MRSA as patient not in shock, no indwelling IV lines, no open wounds, he is from home, so no vancomycin is ordered
[2025-08-21] MEDS: Ceftriaxone 2 GM in 0.9% Normal Saline (50mL MB+) 50 ML IV (06:12)
[2025-08-21 07:07] LABS: Hematocrit 36.1 % (40-54); Hemoglobin 13.0 g/dL (13.0-16.5); Immature Granulocytes Count 0.010 X10^3/uL (0.0-0.0); Mean Corp Hgb Conc 36.0 g/dL (32-36); Mean Corpuscular Volume 94.3 fL (80-94); Mean Platelet Vol. 10.0 fl (6.2-12.0); NRBC Flagged by Analyzer 0 % (0-5); Platelet Count 132 K/mm3 (150-450); RBC Distribution Width CV 13.6 % (11.6-14.6); RBC Distribution Width SD 47.0 fl (35.1-43.9); Red Blood Count 3.83 M/mm3 (4.6-6.2); White Blood Count 4.2 K/mm3 (4.4-11.0)
[2025-08-21 07:33] LABS: AST(SGOT) 75 U/L (<=37); Alanine Aminotransfer ALT/SGPT 49 U/L (<=46); Albumin, Serum 3.6 g/dL (3.4-4.8); Alkaline Phosphatase 48 U/L (40-129); Anion Gap 9 (7-18); BUN 13 mg/dL (4-19); BUN/Creat Ratio 14.8 RATIO (10-20); Calcium,Total 8.3 mg/dL (7.6-11.0); Carbon Dioxide 20.2 mmol/L (20.0-29.0); Chloride 107 mmol/L (96-106); Estimated Creatinine Clearance 66.43 ml/min (50-250); Globulin 2.2 g/dL (2.2-4.2); Glucose 122 mg/dL (70-99); Potassium 3.7 mmol/L (3.5-5.1)
--- NOTE | 2025-08-21 08:17 | PCM.PN.HOSP ---
Subjective Subjective He did have antibiotics started overnight because 1 set of blood cultures came back positive for gram-positive cocci Objective Data Objective Data Vital Signs: Vital Signs Temp Pulse Resp BP Pulse Ox O2 Del Method 99.5 F H 77 17 138/71 H 94 Room Air 08/21/25 08:13 08/21/25 04:54 08/21/25 04:54 08/21/25 04:54 08/21/25 04:54 08/21/25 07:45 Oxygen Delivery Method Room Air Weight: 173 lb 8.061 oz Body Mass Index (BMI) 24.8 Intake & Output: Intake and Output for Last 24 Hours 08/20/25 08/21/25 08/22/25 03:59 03:59 03:59 Intake Total 2740 / 2740 350 / 350 Balance 2740 / 2740 350 / 350 Lab / Micro Data 08/21/25 06:38 08/21/25 06:38 Labs: Laboratory Results - last 24 hr 08/20/25 12:30: WBC 6.8, RBC 4.20 L, Hgb 13.9, Hct 39.7 L, MCV 94.5 H, MCH 33.1 H, MCHC 35.0, RDW Std Deviation 46.6 H, RDW Coeff of Bayron 13.4, Plt Count 146 L, MPV 10.2, Immature Gran % (Auto) 0.300, Neut % (Auto) 77.3 H, Lymph % (Auto) 8.2 L, George % (Auto) 13.5 H, Eos % (Auto) 0.1, Baso % (Auto) 0.6, Absolute Neuts (auto) 5.3, Absolute Lymphs (auto) 0.56 L, Nucleated RBC % 0, PT 14.2, INR 1.1, APTT 27.8, Sodium 135, Potassium 4.4, Chloride 103, Carbon Dioxide 17.5 L, Anion Gap 14, BUN 13, Creatinine 1.06, Estim Creat Clear Calc 28.90 L, Est GFR (MDRD) Non-Af 70, BUN/Creatinine Ratio 12.3, Glucose 147 H, Lactic Acid 3.3 H*, Calcium 8.8, Phosphorus 2.2 L, Magnesium 2.0, Total Bilirubin 0.49, AST 56 H, ALT 47, Alkaline Phosphatase 56, Total Protein 6.8, Albumin 4.1, Globulin 2.7, Albumin/Globulin Ratio 1.6 08/20/25 14:21: Urine Color Yellow, Urine Clarity Clear, Urine pH 6.0, Ur Specific [place] 1.010, Urine Protein 30 H, Urine Glucose (UA) Normal, Urine Ketones 5 H, Urine Occult Blood 50 H, Urine Nitrite Negative, Urine Bilirubin Negative, Urine Urobilinogen 1 H, Ur Leukocyte Esterase Negative, Urine RBC 0-5 SEEN, Urine WBC 0-5 SEEN, Ur Squamous Epith Cells 0-5 SEEN, Urine Bacteria RARE, Urine Mucus 0 SEEN 08/20/25 15:30: Lactic Acid 1.5 08/20/25 18:16: POC Glucose 161 H 08/20/25 20:30: Hgb 12.5 L, Hct 36.9 L 08/21/25 00:22: Hgb 12.3 L, Hct 36.2 L 08/21/25 00:58: POC Glucose 124 H 08/21/25 05:27: POC Glucose 113 H 08/21/25 06:38: WBC 4.2 L, RBC 3.83 L, Hgb 13.0, Hct 36.1 L, MCV 94.3 H, MCH 33.9 H, MCHC 36.0, RDW Std Deviation 47.0 H, RDW Coeff of Bayron 13.6, Plt Count 132 L, MPV 10.0, Immature Gran % (Auto) 0.200, Neut % (Auto) 61.0, Lymph % (Auto) 23.8, George % (Auto) 14.8 H, Eos % (Auto) 0.0, Baso % (Auto) 0.2, Absolute Neuts (auto) 2.6, Absolute Lymphs (auto) 1.00, Nucleated RBC % 0, Sodium 136, Potassium 3.7, Chloride 107 H, Carbon Dioxide 20.2, Anion Gap 9, BUN 13, Creatinine 0.87, Estim Creat Clear Calc 66.43, Est GFR (MDRD) Non-Af 86, BUN/Creatinine Ratio 14.8, Glucose 122 H, Calcium 8.3, Total Bilirubin 0.34, AST 75 H, ALT 49 H, Alkaline Phosphatase 48, Total Protein 5.8 L, Albumin 3.6, Globulin 2.2, Albumin/Globulin Ratio 1.6 Micro: Microbiology 08/20/25 12:30 Blood Culture (Wb) - Anticubital Right Blood Culture - Preliminary 08/20/25 12:30 Mucosa - Nose SARS-CoV-2, Influenza & RSV (PCR) - Final Influenzae A 08/20/25 12:35 Stool Stool Occult Blood (POLY) - Final Radiography Diagnostic Testing: Radiology Impression Chest X-Ray 08/20/25 12:22 IMPRESSION: NO ACUTE FINDINGS. Reading Location: [facility] Abdomen/Pelvis CT 08/20/25 12:48 IMPRESSION: No acute intra-abdominal abnormality. Reading Location: [facility] Brain CT 08/20/25 12:48 IMPRESSION: CHRONIC CHANGES. NO ACUTE FINDINGS. Reading Location: [facility] Physical Exam Narrative General: Alert, Oriented x3, Cooperative, No apparent distress HEENT: Atraumatic, PERRLA, EOMI, Normocephalic Oral: Moist Mucosa Neck: Supple, No JVD Lungs: Diminished, Normal air movement, No rhonchi, scattered wheeze, No rales Cardiovascular: Regular rate, Regular Rhythm, Normal S1, Normal S2, No murmurs Abdomen: Soft, Non Tender, Non-Distended, No Hepato-splenomegaly Extremities: No edema, Capillary Refill Less than 3 Seconds Skin: No rashes, No breakdown Musculoskeletal: No Tenderness to Palpation of Joints or Extremities Neurological: No focal neurological deficits, moves all extremities Psych/Mental Status: Normal Affect, Appropriate Assessment & Plan Assessment/Plan (1) Influenza A: PLAN: Plan 1. Acute hypoxic respiratory insufficiency with increased debility and weakness due to influenza ? Blood cultures did come back positive with gram-positive cocci, he was started on Rocephin overnight will continue antibiotics pending second set of cultures, if they come back as no growth then the first that was likely contaminant and can discontinue antibiotics ? Continue with Tamiflu ? Continue with inhalers ? Thrombocytopenia likely due to infection ?Hemoccult was negative 2. Essential HTN/HLD ? Continue his home blood pressure medications ? Will monitor make adjustments as necessary ? Continue with Lipitor 3. DM2 ? Sliding scale insulin ? Accu-Cheks ? Will monitor make adjustments as necessary 4. Anxiety/depression ? Stable ? Continue with his home medications DVT: SCDs Charges/Coding Visit Charges Inpatient E&M: 22580 Subs Hosp L2
--- NOTE | 2025-08-21 13:48 | CASEMGMT ---
LIVIER MCCONNELL Assessment Face to Face with patient for initial transition planning/care coordination assessment. LIVIER MCCONNELL introduced self and role at [facility], pt voices understanding. Pt is A&Ox4 and is resting comfortably in bed and is calm. Pt's and DIL at the bedside. Pt's DIL is an RN at [facility]. Care providers, pharmacy, and demographics verified. Admitting dx: Adult FTT, Falls, Influenza A LACE Strata: 1 PCP: [facility] (Pt unsure of name) Specialists: fire fighting equipment specialist out of [place] (Unsure of name) Preferred Pharmacy: [facility] Insurance: [place], [facility] A/B, [employer] [place] [employer] Prescription Benefit: Yes LNOK: Irene (W) Living Arrangements:Pt lives with his in a 1.5 story home with a FFSU and a ramp to enter ADLs/IADLs: Pt reports that he is indep. See PT eval. PT is not recommending any additional therapy. However, noted that the pt recently has a fall. Pt states that he has a medical alert system through the [facility] but is open to reviewing [facility] Medical Alert. Resources provided. Transportation: Self (Short distances), DME: CPAP @ [facility] with no additional oxygen. Pt is currently 97% on RA. Pt reports that he has a BGM with sufficient testing supplies including lancets, test strips, and EtOH swabs. Pt also has a BP machine. Pt denies the need for a FWW. HHC/SNF: Denies hx or or needs. Pt denies OP Tx. Pt?s goal: Home Plan: Home with pt's once medically ready. Pt states that he has great family support at home. 6-Click score is 24. Pt denies the need for any additional therapy or resources now. Pt denies further questions or concerns at this time. Report given to ESTEFANÍA MAIER CM. Cleo Felton RN, CM
[2025-08-21] MEDS: MELATONIN 3 MG TABLET PO (22:10)
[2025-08-22 04:00] VITALS: BP 133/65; PULSE 63; RESP 16; TEMP 37.1; O2SAT 95
[2025-08-22 05:12] VITALS: BMI 25.0
[2025-08-22 06:31] LABS: Hematocrit 37.0 % (40-54); Hemoglobin 12.7 g/dL (13.0-16.5); Immature Granulocytes Count 0.020 X10^3/uL (0.0-0.0); Mean Corp Hgb Conc 34.3 g/dL (32-36); Mean Corpuscular Volume 95.9 fL (80-94); Mean Platelet Vol. 10.8 fl (6.2-12.0); NRBC Flagged by Analyzer 0 % (0-5); Platelet Count 133 K/mm3 (150-450); RBC Distribution Width CV 13.5 % (11.6-14.6); RBC Distribution Width SD 48.1 fl (35.1-43.9); Red Blood Count 3.86 M/mm3 (4.6-6.2); White Blood Count 4.7 K/mm3 (4.4-11.0)
[2025-08-22] MEDS: guaiFENesin 10 ML UDC (200MG/10ML) 20 ML PO (06:34)
[2025-08-22 07:04] LABS: Anion Gap 8 (7-18); BUN 17 mg/dL (4-19); BUN/Creat Ratio 17.0 RATIO (10-20); Calcium,Total 8.6 mg/dL (7.6-11.0); Carbon Dioxide 22.6 mmol/L (20.0-29.0); Chloride 107 mmol/L (96-106); Estimated Creatinine Clearance 57.22 ml/min (50-250); Glucose 127 mg/dL (70-99); Potassium 3.6 mmol/L (3.5-5.1)
[2025-08-22 08:00] VITALS: BP 128/76; PULSE 72; RESP 16; TEMP 36.6; O2SAT 95
--- NOTE | 2025-08-22 08:48 | PCM.DC ---
Discharge Instructions DC O2, CPAP, BIPAP needs Home O2 Discharge instructions: No Dressing / Incision Discharge Activity: Return to Normal Activity Dressing / Incision Call your doctor if you observe: Fever of 101 or Higher, Shortness of breath, Dizziness, Fainting spells, Swelling in the ankles, Chest pain and Increased palpitations (irregular heartbeat) Follow Up Care Test Results: Test results from this visit will be discussed in further detail at your follow-up appointment, if applicable. Discharge Plan Admission Admit Date/Time: 08/20/25 16:16 Attending Provider: Ruy Jaffe Primary Care Provider: Rikki Harrison Consulting Providers: Elaine Clemente Discharge Orders/Prescriptions Prescriptions: New oseltamivir 75 mg Capsule 75 mg PO BID 4 Days Qty: 8 0RF Continued atorvastatin 40 mg tablet 40 mg PO DAILY losartan 100 mg tablet 100 mg PO DAILY citalopram 20 mg tablet 10 mg PO DAILY metformin 500 mg tablet 500 mg PO DAILY (DME) CPAP - Continuous Positive Airway Pressure([facility] INFORMATIONAL USE ONLY) See Rx Instructions .Route .MEDSUPPLY Rx Instructions: CPAP 5 CMH2O DME- [facility] MASK- MEDIUM F&P ADRIA NASAL MASK meloxicam 15 mg tablet 15 mg PO DAILY PRN (Reason: back pain) furosemide [Lasix] 20 mg tablet 20 mg PO DAILY PRN (Reason: swelling) Referrals / Follow Up: Rikki Harrison MD [Primary Care Provider, Family Practice] - Within 1 Week Disposition Disposition (needs filled in before D/C Order can be placed): Home, Self Care
[2025-08-22 09:46] VITALS: O2SAT 95
[2025-08-22 09:51] VITALS: BP 117/62; PULSE 62; RESP 16; TEMP 36.6; O2SAT 95
[2025-08-22] MEDS: Ceftriaxone 2 GM in 0.9% Normal Saline (50mL MB+) 50 ML IV (10:17)
[2025-08-22] MEDS: 0.9% Saline Lock 10 ML Syringe IV ×2 (10:18→11:35)
--- NOTE | 2025-08-22 10:53 | CASEMGMT ---
Pt did not qualify for home oxygen. Pt with dc order placed.
--- NOTE | 2025-08-22 10:57 | PCM.DC.SUM ---
Providers Date of Admission: 08/20/25 Primary Care Physician: Dr. Rikki Harrison MD Reason For Visit: ADULT FTT, FALLS, INFLUENZA A Diagnosis Discharge Diagnosis (1) Influenza A: Status: Acute Code(s): J10.1 - Influenza due to other identified influenza virus with other respiratory manifestations Medications at Discharge Home Medications atorvastatin 40 mg tablet 40 mg PO DAILY cholesterol 12/07/20 losartan 100 mg tablet 100 mg PO DAILY blood pressures 12/07/20 citalopram 20 mg tablet 10 mg PO DAILY ANXIETY 02/27/25 metformin 500 mg tablet 500 mg PO DAILY diabetes 02/27/25 CPAP - Continuous Positive Airway Pressure([facility] INFORMATIONAL USE ONLY) 05/19/25 furosemide 20 mg tablet (Lasix) 20 mg PO DAILY PRN swelling 08/20/25 meloxicam 15 mg tablet 15 mg PO DAILY PRN back pain 08/20/25 oseltamivir 75 mg capsule 75 mg PO BID 4 days #8 caps 08/22/25 Hospital Course Operations None Procedures None Summary of Care Provided Minutes Spent on Discharge: 37 Hospital Course: Per HPI: The patient is an 84 y/o M w/ PMHx: HTN, HLD, Diabetes mellitus type II, Possible CKD stage II per current GFR but no comparison data, Anxiety and Depression, DALE on CPAP, Hx Prostate CA s/p brachytherapy currently remission who presents to the [facility] ED on 08/20/2025 with significant debility, weakness and fall earlier in the day with no loss of consciousness or trauma to the head but landed on his buttock unfortunately too weak to get up prompting EMS call reporting however that he has had recent dark black stools not on any antiplatelet or anticoagulant therapy but having some lumbar discomfort possibly with fall prompting EMS transition to the ED for evaluation. He notes this is been ongoing for just a little less than a week. His has also been sick but she has been improving more than him. Patient in addition complains of generalized body aches and fatigue but no specific dyspnea, abdominal pain, nausea or emesis. He does note congestion, rhinorrhea. Workup in the ED included T1 100.6, heart rate 84, BP 153/69, respiratory rate 22, 95% room air with most recent repeat vitals T99.8, heart rate 86, BP 134/81, respiratory rate 20, 96% on room air, CBC with WBC 6.8, hemoglobin 13.9, platelet 146 with lymphopenia, unremarkable coags, CMP with Comvax hide 17.5, BUN/creatinine 13/1.06, GFR 70, glucose 147, hepatic profile with AST 56 otherwise not marked appearing, urinalysis not marked appearing with no obvious evidence of UTI, lactic acid 3.3 with repeat lactic acid per ED following interventions 1.5, chest x-ray with no acute cardiopulmonary findings, urinalysis with no obvious evidence of infection, CT brain with chronic changes with no acute intracranial findings, CT abdomen and pelvis with no acute intra-abdominal findings, negative stool guaiac, blood culture x 2 pending per ED, urine culture pending per ED, positive influenza A status. Hospital Course: 1. Acute hypoxic respiratory insufficiency with increased debility and weakness secondary to influenza?84-year-old male presented to the hospital with increasing shortness of breath and weakness and debility, he tested positive for influenza and was started on Tamiflu. He has had significant improvement and is ambulatory. He did have an ambulatory pulse ox today and he did not qualify for any oxygen. He did have blood cultures and one of them came back positive with 1 out of 2 bottles for strep however the other set of blood cultures are no growth therefore this is likely contaminant and the Rocephin was discontinued on discharge. I discussed with him the possibility for discharge and he expressed understanding of the risks and benefits of going home and would like to go home today. 2. Essential hypertension, hyperlipidemia, type 2 diabetes, anxiety, depression all chronic medical conditions which complicate his care. His home medications were continued where appropriate Physical Exam Narrative General: Alert, Oriented x3, Cooperative, No apparent distress HEENT: Atraumatic, PERRLA, EOMI, Normocephalic Oral: Moist Mucosa Neck: Supple, No JVD Lungs: Diminished, Normal air movement, No rhonchi, scattered wheeze, No rales Cardiovascular: Regular rate, Regular Rhythm, Normal S1, Normal S2, No murmurs Abdomen: Soft, Non Tender, Non-Distended, No Hepato-splenomegaly Extremities: No edema, Capillary Refill Less than 3 Seconds Skin: No rashes, No breakdown Musculoskeletal: No Tenderness to Palpation of Joints or Extremities Neurological: No focal neurological deficits, moves all extremities Psych/Mental Status: Normal Affect, Appropriate Weight / BMI Weight Weight: 175 lb 0.752 oz Body Mass Index (BMI) 25.0 ABG / Lab / Microbiology Data 08/22/25 05:58 08/22/25 05:58 Laboratory: Laboratory Results - last 24 hr 08/21/25 11:23: POC Glucose 189 H 08/21/25 16:20: POC Glucose 114 H 08/21/25 22:17: POC Glucose 141 H 08/22/25 05:58: WBC 4.7, RBC 3.86 L, Hgb 12.7 L, Hct 37.0 L, MCV 95.9 H, MCH 32.9 H, MCHC 34.3, RDW Std Deviation 48.1 H, RDW Coeff of Bayron 13.5, Plt Count 133 L, MPV 10.8, Immature Gran % (Auto) 0.400, Neut % (Auto) 52.2, Lymph % (Auto) 34.0, [place] % (Auto) 12.4 H, Eos % (Auto) 0.6, Baso % (Auto) 0.4, Absolute Neuts (auto) 2.4, Absolute Lymphs (auto) 1.59, Nucleated RBC % 0, Sodium 138, Potassium 3.6, Chloride 107 H, Carbon Dioxide 22.6, Anion Gap 8, BUN 17, Creatinine 1.01, Estim Creat Clear Calc 57.22, Est GFR (MDRD) Non-Af 74, BUN/Creatinine Ratio 17.0, Glucose 127 H, Calcium 8.6 08/22/25 06:37: POC Glucose 127 H Microbiology: Microbiology 08/20/25 14:21 Urine, Clean Catch Urine Culture - Final Mixed Gram Positive Organisms 08/20/25 12:30 Blood Culture (Wb) - Anticubital Right Bacteria Detection (PCR) - Final Strep not Strep pneumo 08/20/25 12:30 Blood Culture (Wb) - Anticubital Right Blood Culture - Preliminary Alpha Hemolytic Streptococcus 08/20/25 12:30 Mucosa - Nose SARS-CoV-2, Influenza & RSV (PCR) - Final Influenzae A 08/20/25 12:35 Stool Stool Occult Blood (POLY) - Final D/C Instructions Call your doctor if you observe: Fever of 101 or Higher, Shortness of breath, Dizziness, Fainting spells, Swelling in the ankles, Chest pain and Increased palpitations (irregular heartbeat) DC O2, CPAP, BIPAP Needs Home O2 Discharge instructions: No Meaningful Use Info Meaningful Use Meaningful Use Diagnoses (Choose all that apply): None applicable Discharge Plan Admission Admit Date/Time: 08/20/25 16:16 Attending Provider: Ruy Jaffe Primary Care Provider: Rikki Harrison Consulting Providers: Elaine Clemente Discharge Orders/Prescriptions Prescriptions: New oseltamivir 75 mg Capsule 75 mg PO BID 4 Days Qty: 8 0RF Continued atorvastatin 40 mg tablet 40 mg PO DAILY losartan 100 mg tablet 100 mg PO DAILY citalopram 20 mg tablet 10 mg PO DAILY metformin 500 mg tablet 500 mg PO DAILY (DME) CPAP - Continuous Positive Airway Pressure([facility] INFORMATIONAL USE ONLY) See Rx Instructions .Route .MEDSUPPLY Rx Instructions: CPAP 5 CMH2O DME- [facility] MASK- MEDIUM F&P ADRIA NASAL MASK meloxicam 15 mg tablet 15 mg PO DAILY PRN (Reason: back pain) furosemide [Lasix] 20 mg tablet 20 mg PO DAILY PRN (Reason: swelling) Referrals / Follow Up: Rikki Harrison MD [Primary Care Provider, Family Practice] - Within 1 Week Disposition Disposition (needs filled in before D/C Order can be placed): Home, Self Care Charges/Coding Visit Charges Inpatient E&M: 99230 Disch Hosp >30min
== END 2025-08-22 12:49 | disposition home or self-care (01) | DRG 194 ==
LOC: ED 16:17 → MS3 16:33
PROVIDERS: Admitting Provider Family Medicine; Emergency Provider Emergency Medicine; PCP Family Medicine; Visit Provider Family Medicine
DX: J10.1 Influenza due to other identified influenza virus with other respiratory manifestations (principal); E87.20 Acidosis, unspecified; E11.22 Type 2 diabetes mellitus with diabetic chronic kidney disease; I12.9 Hypertensive chronic kidney disease with stage 1 through stage 4 chronic kidney disease, or unspecified chronic kidney disease; F32.A Depression, unspecified; N18.2 Chronic kidney disease, stage 2 (mild); E78.5 Hyperlipidemia, unspecified; G47.33 Obstructive sleep apnea (adult) (pediatric); F41.9 Anxiety disorder, unspecified; Z79.899 Other long term (current) drug therapy; Z79.84 Long term (current) use of oral hypoglycemic drugs
CPT/HCPCS: 36415; 70450; 71046; 74177; 80048; 80053; 81001; 82274; 82962; 83605; 83735; 84100; 85014; 85018; 85025; 85610; 85730; 87040; 87086; 87088; 87149; 87186; 87631; 93005; 94668; 97161; 97166; 99285; Q9967; A4216; J0696